=== PATIENT | male | born 1935 | race Caucasian/White ===

== ENCOUNTER → 2016-10-08 | Outpatient (REF) | payer MEDICARE, OTHER ==
[~2016-10-08] MED LIST: /TAMS4CA; /TAMS4CA OR; /WARF2TA; BUFFERED ASPIRIN; LOPR50TA; LORTABS PO; METOPROLOL TARTRATE PO; NASONEX; PRINZIDE; PYRI200T OR; SIMV10TA2 OR; TRAVATAN; WARFARIN PO
== END ==
LOC: M SMT 13:21
PROVIDERS: ATTEND Nurse Practitioner Women's Health
DX: R39.15 Urgency of urination (principal); Z85.51 Personal history of malignant neoplasm of bladder

== ENCOUNTER → 2016-10-15 | Outpatient (REF) | payer MEDICARE, OTHER | LOC: M SMT 13:10 | PROVIDERS: ATTEND Nurse Practitioner Women's Health | DX: N39.0 Urinary tract infection, site not specified (principal) ==

== ENCOUNTER → 2017-11-23 | Outpatient (REF) | payer MEDICARE, OTHER | LOC: M LAB REF 17:16 | DX: L03.116 Cellulitis of left lower limb (principal) | CPT/HCPCS: 87186 ==

== ENCOUNTER → 2018-06-21 | Outpatient (REF) | payer MEDICARE, OTHER | LOC: M LAB REF 13:06 | PROVIDERS: ATTEND Podiatrist Foot & Ankle Surgery | DX: L03.116 Cellulitis of left lower limb (principal); Z79.01 Long term (current) use of anticoagulants ==

== ENCOUNTER → 2020-02-10 | Outpatient (REF) | payer MEDICARE, OTHER ==
[~2020-02-10] MED LIST changes: -/TAMS4CA; -/TAMS4CA OR; -/WARF2TA; +COUM1TAB16; +FLOM0.4C39; +FLOM0.4C39 OR
== END ==
LOC: M LAB REF 12:34
PROVIDERS: ATTEND Podiatrist Foot & Ankle Surgery
DX: L03.032 Cellulitis of left toe (principal)

== ENCOUNTER → 2020-07-23 | Outpatient (REF) | payer MEDICARE, OTHER | LOC: M LAB REF 11:19 | PROVIDERS: ATTEND Podiatrist Foot & Ankle Surgery | DX: L03.116 Cellulitis of left lower limb (principal) ==

== ENCOUNTER → 2020-09-17 | Outpatient (REF) | payer MEDICARE, OTHER ==
[~2020-09-17] MED LIST changes: +DOCU100C16; +FLUTISP; +JANT5TAB; +METO1TAB87; +SIMV10TA21; +TAMS1CAP17
[2020-09-17 12:36] LABS: APPEARANCE, URINE CLEAR (CLEAR); BACTERIA, URINE AUTO NEGATIVE (NEGATIVE); BILIRUBIN, URINE AUTO NEGATIVE (NEGATIVE); BLOOD, URINE BLOOD 1+ (NEGATIVE); COLOR, URINE STRAW (YELLOW); GLUCOSE, URINE (UA) AUTO NEGATIVE (NEGATIVE); KETONE, URINE AUTO NEGATIVE (NEGATIVE); LEUKOCYTE ESTERASE, URINE AUTO NEGATIVE (NEGATIVE); NITRITE, URINE AUTO NEGATIVE (NEGATIVE); PROTEIN, URINE AUTO NEGATIVE (NEGATIVE); RBC, URINE AUTO 1 /HPF (0-3); SPECIFIC GRAVITY URINE AUTO 1.004 (1.002-1.035); SQUAMOUS EPITHELIAL CELL UR AU 0 /HPF (0-6); UROBILINOGEN, URINE AUTO 0.2 mg/dL (0.0-2.0); WBC, URINE AUTO 0 /HPF (0-3)
== END ==
LOC: M LAB REF 12:18
PROVIDERS: ATTEND Family Medicine
DX: Z08 Encounter for follow-up examination after completed treatment for malignant neoplasm (principal); Z85.51 Personal history of malignant neoplasm of bladder; Z79.899 Other long term (current) drug therapy

== ENCOUNTER → 2020-09-22 | Outpatient (CLI) | payer MEDICARE, OTHER | LOC: M LABSMTC 09:49 | PROVIDERS: ATTEND Anesthesiology | DX: Z01.818 Encounter for other preprocedural examination (principal); Z11.52 Encounter for screening for COVID-19 ==

== ENCOUNTER 2020-09-27 07:15 | Day surgery (SDC) | payer MEDICARE, OTHER ==
[~2020-09-27] VITALS: Ht 180.3 cm; Wt 77.6 kg
[~2020-09-27 07:15] MED LIST changes: +NS 1,000 ML IV ONE
[2020-09-27] MEDS ORDERED: propofoL 200 MG/20 ML VIAL As Ordered ONE (09:32)
[2020-09-27] MEDS ORDERED: LIDOCAINE 2% 100MG/5ML SDV (FOR ANES.) As Ordered ONE (09:32)
--- NOTE | 2020-09-27 09:33 | ROOR ---
Patient Name: Rob Mg Procedure Date: 09/27/2020 9:02 AM Date of : 1935 Age: 84 Room: [facility]AC, [facility]IN [facility] Gender: Male Note Status: Finalized Procedure: Colonoscopy Indications: Screening for colorectal malignant neoplasm Providers: Chele Cesar Jr, MD Referring MD: Carlos Alberto Carter MD Requesting Provider: Medicines: Propofol per Anesthesia Complications: No immediate complications. Procedure: Pre-Anesthesia Assessment: - Prior to the procedure, a History and Physical was performed, and patient medications and allergies were reviewed. The patient is competent. The risks and benefits of the procedure and the sedation options and risks were discussed with the patient. All questions were answered and informed consent was obtained. Patient identification and proposed procedure were verified by the physician and the nurse in the pre-procedure area and in the procedure room. Mental Status Examination: alert and oriented. Airway Examination: normal oropharyngeal airway and neck mobility. Respiratory Examination: clear to auscultation. CV Examination: normal. ASA Grade Assessment: II - A patient with mild systemic disease. After reviewing the risks and benefits, the patient was deemed in satisfactory condition to undergo the procedure. The anesthesia plan was to use moderate sedation / analgesia (conscious sedation). Immediately prior to administration of medications, the patient was re-assessed for adequacy to receive sedatives. The heart rate, respiratory rate, oxygen saturations, blood pressure, adequacy of pulmonary ventilation, and response to care were monitored throughout the procedure. The physical status of the patient was re-assessed after the procedure. The Colonoscope was introduced through the anus and advanced to the cecum, identified by appendiceal orifice and ileocecal valve. The colonoscopy was performed without difficulty. The patient tolerated the procedure well. The quality of the bowel preparation was adequate. Findings: The recto-sigmoid colon, cecum, appendiceal orifice and ileocecal valve appeared normal. Multiple small and large-mouthed diverticula were found in the descending colon, transverse colon and ascending colon. Many small and large-mouthed diverticula were found in the sigmoid colon. Three sessile polyps were found in the ascending colon. The polyps were medium in size. These polyps were removed with a hot snare. Resection was complete, but the polyp tissue was only partially retrieved. To close a defect after polypectomy, one hemostatic clip was successfully placed. There was no bleeding at the end of the procedure. Two semi-sessile polyps were found in the rectum and sigmoid colon. The polyps were small in size. These polyps were removed with a hot snare. Resection was complete, but the polyp tissue was only partially retrieved. Impression: - The recto-sigmoid colon, cecum, appendiceal orifice and ileocecal valve are normal. - Diverticulosis in the descending colon, in the transverse colon and in the ascending colon. - Diverticulosis in the sigmoid colon. - Three medium polyps in the ascending colon, removed with a hot snare. Complete resection. Partial retrieval. Clip was placed. - Two small polyps in the rectum and in the sigmoid colon, removed with a hot snare. Complete resection. Partial retrieval. Recommendation: - Discharge patient to home (ambulatory). - Repeat colonoscopy in 5 years for surveillance. Procedure Code(s): --- Professional --- 38431, Colonoscopy, flexible; with removal of tumor(s), polyp(s), or other lesion(s) by snare technique Diagnosis Code(s): --- Professional --- Z12.11, Encounter for screening for malignant neoplasm of colon K62.1, Rectal polyp K63.5, Polyp of colon K57.30, Diverticulosis of large intestine without perforation or abscess without bleeding CPT copyright 2019 [employer]. All rights reserved. The codes documented in this report are preliminary and upon superintendent mechanical review may be revised to meet current compliance requirements. Chele Cesar MD Chele Cesar Jr, MD 09/27/2020 9:32:49 AM Electronically signed by Chele Cesar Jr, MD Number of Addenda: 0 Note Initiated On: 09/27/2020 9:02 AM Estimated Blood Loss: Estimated blood loss: none.
[2020-09-27 10:01] VITALS: BP 122/69
== END 2020-09-27 10:16 | disposition home or self-care (01) ==
LOC: M OPP 07:15
PROVIDERS: ATTEND Surgery
DX: Z12.11 Encounter for screening for malignant neoplasm of colon (principal); K62.1 Rectal polyp; D12.6 Benign neoplasm of colon, unspecified; K57.30 Diverticulosis of large intestine without perforation or abscess without bleeding; I48.91 Unspecified atrial fibrillation; Z79.899 Other long term (current) drug therapy

== ENCOUNTER 2020-10-02 16:14 | Inpatient (IN) | payer MEDICARE, OTHER ==
[~2020-10-02] VITALS: Ht 182.9 cm; Wt 78.2 kg
[~2020-10-02 16:14] MED LIST changes: -NS 1,000 ML IV ONE
[2020-10-02] MEDS ORDERED: ELIQ5TAB (17:09)
--- NOTE | 2020-10-02 17:50 | REPVR ---
PROCEDURE INFORMATION: Exam: CT Head Without Contrast Exam date and time: 10/02/2020 5:24 PM Age: 84 years old Clinical indication: Pain; Headache; Additional info: Altered mental status TECHNIQUE: Imaging protocol: Computed tomography of the head without contrast. Radiation optimization: All CT scans at this facility use at least one of these dose optimization techniques: automated exposure control; mA and/or kV adjustment per patient size (includes targeted exams where dose is matched to clinical indication); or iterative reconstruction. COMPARISON: No relevant prior studies available. FINDINGS: Brain: There is no acute intracranial hemorrhage, cerebral edema, or midline shift. Chronic microvascular ischemic changes are seen in the periventricular white matter. Age-related cerebral and cerebellar volume loss is present. Cerebral ventricles: No hydrocephalus. Paranasal sinuses: There is no acute sinusitis. Mastoid air cells: The mastoid air cells are clear. Orbital cavity: The included orbital structures are unremarkable. Vasculature: Atherosclerotic calcifications are seen involving the cavernous carotid arteries. Bones/joints: No acute fracture. Soft tissues: Unremarkable. IMPRESSION: 1. No acute intracranial abnormality. 2. Atrophy and chronic deep white matter ischemic changes. Electronically signed by: Dangelo Christianson On 10/02/2020 17:50:29 PM
[2020-10-02 18:09] LABS: EOS % 0.2 % (0.0-3.0); HEMATOCRIT 21.2 % (42.0-52.0); HEMOGLOBIN 7.3 g/dl (13.5-17.5); LYMPH # 0.7 10^3/uL (1.5-5.0); LYMPH % 7.2 % (24.0-44.0); MEAN CORPUSCULAR HGB CONC 34.4 g/dl (32.0-36.5); MONO # 0.6 10^3/uL (0.0-0.8); MONO % 6.1 % (2.0-8.0); NEUTROPHILS # 7.8 10^3/uL (1.5-8.5); NEUTROPHILS % 85.8 % (36.0-66.0); PLATELET COUNT, AUTOMATED 172 10^3/uL (150-450); RED BLOOD COUNT 2.28 10^6/uL (4.30-6.10); WHITE BLOOD COUNT 9.1 10^3/uL (4.0-10.0)
[2020-10-02 18:23] LABS: INR 1.6; PROTHROMBIN TIME 19.4 SECONDS (12.5-14.3)
[2020-10-02 18:24] LABS: PARTIAL THROMBOPLASTIN TIME 31.7 SECONDS (24.2-38.5)
--- NOTE | 2020-10-02 18:30 | REP ---
INDICATION: AMS; recent endoscopy; assess for free air COMPARISON: None. TECHNIQUE: Supine and cross-table lateral views of the abdomen and pelvis. FINDINGS: Bowel gas pattern is nonspecific. No free air to suggest perforation. Skeletal structures demonstrate degenerative changes. No obvious organomegaly. IMPRESSION: No evidence for bowel perforation. <Electronically signed by Suraj Jean > 10/02/20 [id number]
[2020-10-02 18:47] LABS: ALBUMIN 2.7 GM/DL (3.2-5.2); ALT/SGPT 23 U/L (12-78); BILIRUBIN,DIRECT 0.3 MG/DL (0.0-0.2); BILIRUBIN,TOTAL 0.9 MG/DL (0.2-1.0); BLOOD UREA NITROGEN 18 MG/DL (7-18); CALCIUM LEVEL 7.2 MG/DL (8.8-10.2); CARBON DIOXIDE LEVEL 23 MEQ/L (21-32); CHLORIDE LEVEL 93 MEQ/L (98-107); CK-MB VALUE MASS 25.6 NG/ML (<3.6); CPK CREATINE PHOSPHOKINASE 647 U/L (39-308); CREATININE FOR GFR 0.58 MG/DL (0.70-1.30); GLOMERULAR FILTRATION RATE > 60.0 (>35); GLUCOSE, FASTING 137 MG/DL (70-100); MB/CK RELATIVE INDEX 3.96 (< OR =4); POTASSIUM SERUM 3.9 MEQ/L (3.5-5.1); SODIUM LEVEL 125 MEQ/L (136-145); TOTAL PROTEIN 5.2 GM/DL (6.4-8.2); TROPONIN I 0.76 NG/ML (< 0.10)
[2020-10-02] MEDS ORDERED: PANTOPRAZOLE 40MG VIAL (C9113 PER 1) IV ONE (19:25)
[2020-10-02] MEDS ORDERED: NS 500 ML IV ONE (20:00)
[2020-10-02 20:21] VITALS: BP 98/60
[2020-10-02 20:37] VITALS: BP 107/64
[2020-10-02] MEDS: SIMVASTATIN 10 MG TAB PO SCH (21:00)
[2020-10-02] MEDS: TAMSULOSIN 0.4 MG CAP PO SCH (21:00)
[2020-10-02] MEDS: DOCUSATE SODIUM 100MG CAPSULE PO SCH (21:00)
[2020-10-02] MEDS ORDERED: PANTOPRAZOLE 40MG VIAL (C9113 PER 1) IV SCH (21:00)
[2020-10-02] MEDS ORDERED: ELIQ5TAB PO (21:20)
[2020-10-02] MEDS ORDERED: VITMTA PO (21:20)
[2020-10-02] MEDS ORDERED: MIRA1POW3 PO (21:20)
[2020-10-02] MEDS ORDERED: FLOM0.4C39 PO (21:20)
[2020-10-02] MEDS ORDERED: XALA0.007 OU (21:20)
[2020-10-02] MEDS ORDERED: MAALOX 30 ML SUSP *UDC PO PRN (21:20)
[2020-10-02] MEDS ORDERED: DOCU100C16 PO (21:20)
[2020-10-02] MEDS ORDERED: MOM 30ML SUSPENSION UDC PO PRN (21:20)
[2020-10-02] MEDS ORDERED: METO25TA4 PO (21:20)
[2020-10-02] MEDS ORDERED: FLUT15.820 (21:20)
[2020-10-02] MEDS ORDERED: SIMV10TA21 PO (21:20)
[2020-10-02] MEDS ORDERED: CALTTAB6 PO (21:20)
[2020-10-02] MEDS ORDERED: ACETAMINOPHEN TAB 650MG DOSE (2X325MG) PO PRN (21:20)
[2020-10-02 21:28] VITALS: BP 102/59
[2020-10-02 21:40] LABS: RSV AMPLIFICATION NEGATIVE (NEGATIVE)
[2020-10-02 21:55] LABS: FREE T4 1.12 NG/DL (0.76-1.46); THYROID STIMULATING HORMONE 1.33 uIU/ML (0.358-3.740)
[2020-10-02 21:55] LABS: CK-MB VALUE MASS 43.8 NG/ML (<3.6); MB/CK RELATIVE INDEX 4.19 (< OR =4); TROPONIN I 8.02 NG/ML (< 0.10)
[2020-10-02 22:45] VITALS: BP 97/61
--- NOTE | 2020-10-02 22:56 | HPEPDOC ---
[facility] Medical History & Physical Date of Admission Oct 02, 2020 Date of Service: Oct 02, 2020 History and Physical CHIEF COMPLAINT: Bleeding per rectum HISTORY OF PRESENT ILLNESS: This is an 84-year-old male history of atrial fibrillation on eliquis who was brought in a son because of 3 day history of bright red bleeding per rectum. Patient had a colonoscopy with Dr. Cesar on during which polyps were removed and patient was started on eliquis on Thursday for his atrial fibrillation. His son noticed on Thursday he had an episode of bright red blood per rectum and discontinued with every bowel movement until today Thursday. During this time he noticed patient became progressively more confused at home and appeared to be weaker. Son tells me that the patient didnt have any complaints and appeared comfortable. EMS found the patient to be hypotensive approximately 80s/50s and he was given IV fluids and he responded well systolic blood pressure currently ~110. His son provided consent in the emergency dep artment for blood products and patient was ordered 2 units of blood which were transfusing at the time that I saw him in the emergency department. Patient was pleasantly confused at bedside he did not know where he was, he was able to tell me that his son was at the bedside but didnt know his name. His son Bartolome provided all of the history. Troponin was noted to be elevated initially to 0.76 and then up to 8. TRENTON Pantoja spoke with Dr. Palomares who recommended admission and to hold beta audrey, hydrate and give blood products despite the elevated troponin. I also discussed the case with Dr Palomares. PAST MEDICAL/SURGICAL HISTORY: History from Bartolome his son; Atrial fibrillation Glaucoma BPH Hyperlipidemia Hypertension Inguinal hernia surgery SOCIAL HISTORY: According to his son patient does not smoke does not consume alcohol and does not use illicit drugs. 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 FAMILY HISTORY: Obtained from his son who tells me he has a family history of bladder cancer. Son didnt know of any other family history. History Bartolome lives with him at his house. ALLERGIES: Please see below. REVIEW OF SYSTEMS: Unable to obtain most of review of systems from the patient given his confusion however he was able to answer some basic questions Im uncertain of the reliability of the answers. He denies having shortness of breath denies having chest pain denies being in any pain. HOME MEDICATIONS: Please see below. PHYSICAL EXAMINATION: Constitutional: Awake, in no apparent distress, pleasantly confused ENT: Sclera are clear. Mucosa is dry. Respiratory: Lungs CTA bilaterally. No respiratory distress. No use of accessory muscles. Cardiovascular: Irregularly irregular heart rate. No JVD noted Gastrointestinal: Abdomen is soft, non distended, non tender, BS present. Musculoskeletal: No lower extremity edema. Neurologic: Difficult to assess accurately with his mental state but he appears to move all 4 extremities freely and there is no obvious focal neurologic deficits Mental Status: A&O x1, only able to recognize his son is at bedside. Not oriented to place and time. Skin: No visible rashes LABORATORY DATA: See below. IMAGING: See chart MICROBIOLOGY: Please see below. ASSESSMENT/PLAN 84-year-old male history of atrial fibrillation on eliquis recently had a colonoscopy and started on eliquis who started having lower bright red blood per rectum who is being admitted for management of symptomatic anemia and confusion in the setting of GI bleeding. Found to have NSTEMI but not cadidate for heparin drip or cardiac intervention at this time per Dr Palomares. Will be admitted to ICU. # GI bleed: Admit to ICU. Bright red blood per rectum. HH initially 7.3. Trend HH. Transfuse 2x pRBC and PRN if hgb<8. PPI IV. Discussed with Dr Hughes, no urgent need for scope if bleeding stops and HH is stable after blood transfusion, its likely from the polyp that were recently removed and being restarted on eliquis. Later, once in the ICU patient also developed coffee ground emesis; NG tube to suction returned 400cc of coffee ground emesis and octreotide drip started. Consulted Dr Hughes formally and appreciate his recommendations. I discussed the case with Dr Cesar as he did his c-scope last week, he kindly agreed to be consulted, he recommended trying to reach out to IR in the morning to see if they would be available/willing to perform IR directed embolization given his elevated trops. # NSTEMI: initially 0.76 ->8.0. Trend troponin and EKGs. Hypotension and severe anemia can definitely be contributing. I discussed his case given the elevated troponin with Dr Palomares laboratory machinist recommended admission as inpatient vs transfer out to [facility] as he is not a candidate for PCI/stenting while having a GI bleed. Cannot get heparin drip while having active GI bleed and tells me it will take a few days to settle and deal with the GI bleed before any potential cardiac intervention is considered. EKG shows some T wave invasions. I involved his son Bartolome in the decision making process and discussed the possible advantages of going to a higher level of care vs staying here vs the risks and he preferred that his dad stay at [facility]. I consulted Dr Palomares and really appreciate his recommendations. # increased confusion: in the setting of hypotension, anemia, and NSTEMI. IVFs, blood transfusion and monitor mental state progression. Ammonia level ok. # A fib: per Dr Palomares will hold BB. Also hold eliquis in setting of GI bleed. # Elevated CK: likely from dehydration. IVFs, rRBC transfusions. Trend CK, initially 647. # Hypertension: Initially hypotensive, hold home meds. IVFs. Monitor and titrate # HLD: continue home statin # BPH: continue home med # DVT prophylaxis: SCDs/TEDs only CODE STATUS: discussed with son Bartolome who indicated his dad would like to be full code. A Youse[facility] Hospitalist Vital Signs Vital Signs Date Time Temp Pulse Resp B/P (MAP) Pulse Ox O2 Delivery O2 Flow Rate FiO2 10/02/20 22:44 63 18 97 Room Air 10/02/20 22:30 97/62 (74) 10/02/20 21:28 98.1 Laboratory Data Labs 24H Laboratory Tests 2 10/02/20 17:56: Prothrombin Time 19.4H, Prothromb Time International Ratio 1.60, Activated Partial Thromboplast Time 31.7 10/02/20 17:57: Immature Granulocyte % (Auto) 0.7, Neutrophils (%) (Auto) 85.8H, Lymphocytes (%) (Auto) 7.2L, Monocytes (%) (Auto) 6.1, Eosinophils (%) (Auto) 0.2, Basophils (%) (Auto) 0.0, Neutrophils # (Auto) 7.8, Lymphocytes # (Auto) 0.7L, Monocytes # (Auto) 0.6, Eosinophils # (Auto) 0.0, Basophils # (Auto) 0.0, Nucleated Red Blood Cells % (auto) 0.0, Anion Gap 9, Glomerular Filtration Rate > 60.0, Calcium Level 7.2L, Total Bilirubin 0.9, Direct Bilirubin 0.3H, Aspartate Amino Transf (AST/SGOT) 34, Alanine Aminotransferase (ALT/SGPT) 23, Alkaline Phosphatase 48, Total Creatine Kinase 647H, Creatine Kinase MB 25.6H, Creatine Kinase MB Relative Index 3.96, Troponin I 0.76H, Total Protein 5.2L, Albumin 2.7L, Albumin/Globulin Ratio 1.1, Thyroid Stimulating Hormone (TSH) 1.330 10/02/20 20:45: Thyroid Stimulating Hormone (TSH) 1.330, Osmolality 255L, Ammonia 26, Free Thyroxine 1.12, Coronavirus (COVID-19)(PCR) NEGATIVE, Influenza Type A (RT-PCR) NEGATIVE, Influenza Type B (RT-PCR) NEGATIVE, Respiratory Syncytial Virus (PCR) NEGATIVE 10/02/20 20:59: Total Creatine Kinase 1046H, Creatine Kinase MB 43.8H, Creatine Kinase MB Relative Index 4.19H, Troponin I 8.02#*H CBC/BMP Laboratory Tests 10/02/20 17:57 Home Medications Scheduled Apixaban (Eliquis) 5 Mg Tablet, 5 MG PO BID Lencho/D3/Mag11/Zinc/Outpatient Facility Physical Therapist/Harman/Bor (Caltrate 600+D Plus Tablet) 1 Each Tablet, 1 TAB PO DAILY Docusate Sodium (Docusate Sodium) 100 Mg Capsule, 100 MG PO BID Fluticasone Propionate (Fluticasone Propionate) 15.8 Ml [place].susp, 2 SPRAYS NA DAILY Latanoprost (Xalatan) 0.005% 2.5ML Drops, 1 DROP OU QHS Metoprolol Tartrate (Metoprolol Tartrate) 25 Mg Tablet, 25 MG PO BID Multivitamins (Thera M Plus Tablet) 1 Each Tablet, 1 TAB PO DAILY Polyethylene Glycol 3350 (Miralax) 17 Gm Powd.pack, 17 GM PO DAILY Simvastatin (Simvastatin) 10 Mg Tablet, 10 MG PO QHS Tamsulosin HCl (Flomax) 0.4 Mg Capsule, 0.8 MG PO QHS Allergies Coded Allergies: No Known Allergies (Verified , 09/18/20) A-FIB/CHADSVASC A-FIB History Current/History of A-Fib/PAF?: Yes Current PO Anticoag Therapy: No BRYAN RICHARDSON MD Oct 02, 2020 22:56
[2020-10-02] MEDS ORDERED: NS 1,000 ML IV SCH (23:30)
[2020-10-02 23:35] VITALS: BP 107/64
[2020-10-03] VITALS (35 sets, daily range): BP systolic 97–132; BP diastolic 52–69
[2020-10-03 01:16] LABS: CREATININE,RANDOM URINE 69.9 MG/DL
[2020-10-03] MEDS: OCTREOTIDE ACETATE 1,200 MCG in NS 238.8 ML IV SCH ×2 (02:40→03:24)
[2020-10-03] MEDS ORDERED: NS 1,000 ML IV SCH (03:20)
[2020-10-03] MEDS: LATANOPROST 0.005% OPHTH SOLN 2.5 ML OU SCH ×2 (03:23→20:18)
[2020-10-03 03:56] LABS: ABG HCO3 19.5 MEQ/L (22.0-26.0); ABG O2 SATURATION 96.5 % (95.0-99.0); ABG PARTIAL PRESSURE CO2 30.4 mmHg (35.0-45.0); ABG STANDARD HCO3 21.1 MEQ/L (22.0-26.0); ABG TOTAL CO2 20.4 MEQ/L (23.0-31.0); ABG pH (ARTERIAL) 7.425 UNITS (7.350-7.450)
[2020-10-03 04:16] LABS: HEMATOCRIT 29.9 % (42.0-52.0); HEMOGLOBIN 10.2 g/dl (13.5-17.5); MEAN CORPUSCULAR HEMOGLOBIN 31.5 pg (27.0-33.0); MEAN CORPUSCULAR HGB CONC 34.1 g/dl (32.0-36.5); MEAN CORPUSCULAR VOLUME 92.3 fl (80.0-96.0); PLATELET COUNT, AUTOMATED 192 10^3/uL (150-450); RED BLOOD COUNT 3.24 10^6/uL (4.30-6.10); WHITE BLOOD COUNT 12.2 10^3/uL (4.0-10.0)
[2020-10-03 04:24] LABS: INR 1.44; PROTHROMBIN TIME 17.9 SECONDS (12.5-14.3)
[2020-10-03 04:49] LABS: ALBUMIN 2.9 GM/DL (3.2-5.2); ALT/SGPT 34 U/L (12-78); BILIRUBIN,TOTAL 1.7 MG/DL (0.2-1.0); BLOOD UREA NITROGEN 15 MG/DL (7-18); BLOOD UREA NITROGEN 16 MG/DL (7-18); CALCIUM LEVEL 6.8 MG/DL (8.8-10.2); CALCIUM LEVEL 7.3 MG/DL (8.8-10.2); CARBON DIOXIDE LEVEL 23 MEQ/L (21-32); CARBON DIOXIDE LEVEL 26 MEQ/L (21-32); CHLORIDE LEVEL 95 MEQ/L (98-107); CHLORIDE LEVEL 96 MEQ/L (98-107); CREATININE FOR GFR 0.43 MG/DL (0.70-1.30); CREATININE FOR GFR 0.47 MG/DL (0.70-1.30); GLOMERULAR FILTRATION RATE > 60.0 (>35); GLUCOSE, FASTING 106 MG/DL (70-100); GLUCOSE, FASTING 112 MG/DL (70-100); MAGNESIUM LEVEL 1.3 MG/DL (1.8-2.4); POTASSIUM SERUM 3.9 MEQ/L (3.5-5.1); SODIUM LEVEL 126 MEQ/L (136-145); SODIUM LEVEL 127 MEQ/L (136-145); TOTAL PROTEIN 5.7 GM/DL (6.4-8.2)
--- NOTE | 2020-10-03 05:51 | REPVR ---
PROCEDURE INFORMATION: Exam: XR Chest Exam date and time: 10/03/2020 3:53 AM Age: 84 years old Clinical indication: Other: Hypoxia TECHNIQUE: Imaging protocol: XR of the chest. Views: 1 view. COMPARISON: CR Abdomen,Flat Upright,PA CHEST 10/02/2020 5:42 PM FINDINGS: Tubes, catheters and devices: A new nasogastric tube is present, extending below the diaphragm. The tip is not included in the field of view. The side port appears to be at or just beyond the level of the GE junction. Lungs: There is new central and basilar predominant airspace disease. There is new mild interstitial thickening and prominence of the pulmonary vessels. Pleural spaces: There are probable small bilateral pleural effusions. Heart/Mediastinum: The heart is normal in size. Vasculature: Aortic knob calcifications are noted. Bones/joints: Unremarkable. IMPRESSION: 1. Interval placement of a nasogastric tube extending to the stomach. 2. New central and basilar predominant airspace disease, interstitial thickening, and prominence of the pulmonary vessels likely due to pulmonary edema. Electronically signed by: Vanesa Grullon On 10/03/2020 05:50:21 AM
[2020-10-03] MEDS: MAG SULF 1GM/100ML (MAG RUN) 1 GM in IV 1 EA IV SCH ×3 (06:13→09:49)
[2020-10-03] MEDS ORDERED: propofoL 200 MG/20 ML VIAL As Ordered ONE (07:12)
[2020-10-03] MEDS ORDERED: fentaNYL 100 MCG/2 ML INJECTION (J3010) As Ordered ONE (07:12)
[2020-10-03] MEDS ORDERED: LIDOCAINE 2% 100MG/5ML SDV (FOR ANES.) As Ordered ONE (07:12)
[2020-10-03] MEDS ORDERED: SUCCINYLCHOLINE 100 MG/5 ML SYRINGE (J0330) As Ordered ONE (07:14)
[2020-10-03] MEDS ORDERED: ROCURONIUM BROMIDE 50 MG/5 ML VIAL As Ordered ONE (07:14)
[2020-10-03] MEDS ORDERED: MIDAZOLAM INJ 2MG/2ML VIAL (J2250 PER 1MG) As Ordered ONE (07:18)
--- NOTE | 2020-10-03 08:44 | ROOR ---
Patient Name: Rob Mg Procedure Date: 10/03/2020 8:06 AM Date of : 1935 Age: 84 Room: Main OR Gender: Male Note Status: Finalized Procedure: Upper GI endoscopy Indications: Acute post hemorrhagic anemia, Coffee-ground emesis, Hematemesis, Suspected upper gastrointestinal bleeding Providers: Jax Hughes MD Referring MD: 2. Inpatient 2. Inpatient Requesting Provider: Medicines: See the Anesthesia note for documentation of the administered medications Complications: No immediate complications. Procedure: Pre-Anesthesia Assessment: - The heart rate, respiratory rate, oxygen saturations, blood pressure, adequacy of pulmonary ventilation, and response to care were monitored throughout the procedure. The Endoscope was introduced through the mouth, and advanced to the second part of duodenum. The upper GI endoscopy was accomplished without difficulty. The patient tolerated the procedure well. Findings: Mildly severe esophagitis with no bleeding was found in the lower third of the esophagus. One benign-appearing, intrinsic mild stenosis was found at the gastroesophageal junction. The stenosis was traversed. Bilious fluid was found in the gastric body. Nasogastric tube trauma characterized by suction wall was evident in the gastric body. The exam of the stomach was otherwise normal. A non-bleeding diverticulum was found in the second portion of the duodenum. The examined duodenum was normal. Impression: - Mildly severe esophagitis with mild benign-appearing esophageal stenosis. - Normal stomach with NG suction wall. Bilious fluid. - Normal examined duodenum with duodenal diverticulum - No specimens collected. (-No significant bleeding source seen on this exam. Suspect may have had some minor bleeding from esophagitis as source for coffee ground/blood in NGT). Recommendation: - [facility] to [facility] for [facility]. Procedure Code(s): --- Professional --- 42435, Esophagogastroduodenoscopy, flexible, transoral; diagnostic, including collection of specimen(s) by brushing or washing, when performed (separate procedure) Diagnosis Code(s): --- Professional --- K92.0, Hematemesis K57.10, Diverticulosis of small intestine without perforation or abscess without bleeding D62, Acute posthemorrhagic anemia K91.89, Other postprocedural complications and disorders of digestive system K22.2, Esophageal obstruction K20.9, Esophagitis, unspecified CPT copyright 2019 [employer]. All rights reserved. The codes documented in this report are preliminary and upon water fitness instructor review may be revised to meet current compliance requirements. Jax Hughes MD Jax Hughes MD 10/03/2020 8:44:00 AM Electronically signed by Jax Hughes MD Number of Addenda: 0 Note Initiated On: 10/03/2020 8:06 AM Estimated Blood Loss: Estimated blood loss: none.
[2020-10-03] MEDS ORDERED: ONDANSETRON 4MG/2ML VIAL IV PRN (08:45)
[2020-10-03] MEDS ORDERED: LR 1,000 ML IV SCH (08:45)
[2020-10-03] MEDS: DOCUSATE SODIUM 100MG CAPSULE PO SCH ×2 (09:00→20:17)
--- NOTE | 2020-10-03 09:00 | CR ---
CONSULTATION DATE: 10/03/2020 REFERRING PHYSICIAN: BRYAN RICHARDSON MD REASON FOR CONSULTATION: Myocardial infarction. HISTORY OF PRESENT ILLNESS: Mr. Mg is previously unknown to me. He is an 84-year-old man who presented to the Emergency Room yesterday. He had a colonoscopy with resection of multiple polyps last week, apparently the patient procedure was performed on . On Thursday, he was instructed to restart Eliquis and the following day he started to have blood per rectum. Unfortunately, he continued to take all his medications but then yesterday his son who lives with the patient noted that he was very confused and disoriented and eventually decided to bring him to the Emergency Room. On the initial evaluation, he had obvious blood in his stools. He was not overly hypotensive and neither was he excessively tachycardic. His hemoglobin was a little bit over 7. The last dose of Eliquis was yesterday morning. Also, his troponin was mildly elevated at 0.7 but he did not complain about any chest discomfort even though his answers may not be accurate due to underlying confusion. A 12 lead ECG was interpreted as revealing no acute ST elevations or depressions. Dr. Flowers called me from the Emergency Room and informed me about these findings and inquired about transfer. I did not feel that transferring the patient would provide any obvious advantage as in the setting of acute ongoing bleeding he would not be a candidate for any form of cardiac intervention. Consequently, he was kept in our hospital. Unfortunately, his troponin continued to rise, the second was over 8 and the third one this morning is almost 30. At no point did he complain of chest discomfort. He remained confused and at some point became very hypoxic after he got blood transfusion and IV fluids, probably triggering congestive heart failure. In the middle of the night, he started having emesis, an NG-tube was placed and evacuated a large amount of coffee-ground material from his stomach indicative of upper GI bleeding. This morning I saw the patient in the Recovery Room. He was getting ready to have emergency EGD due to ongoing upper GI hemorrhage. At the bedside, he was pleasantly confused, did not seem to be in any distress. He denied any chest discomfort but due to his mental status I am not convinced the answer can be considered definitely accurate. Vital signs: Blood pressure was 105/70, heart rate in the 80s, sinus rhythm. He was saturating in the mid 90s on supplemental oxygen via nasal cannula. PAST MEDICAL HISTORY: 1. Paroxysmal atrial fibrillation. 2. Glaucoma. 3. BPH. 4. Dyslipidemia. 5. Hypertension. 6. History of inguinal hernia surgery. SOCIAL HISTORY: Based on admission note, he does not smoke and he does not drink alcohol. He has been retired for over 30 years. FAMILY HISTORY: Limited. I was not able to obtain anything from the patient. OUTPATIENT MEDICATIONS: 1. Eliquis 5 mg twice a day, the last dose was administered yesterday morning. 2. Multivitamin. 3. Colace 100 b.i.d. 4. Fluticasone nasal spray. 5. Xalatan eyedrops. 6. Metoprolol 25 mg twice a day. 7. Miralax as needed. 8. Simvastatin 10 mg at bedtime. 9. Flomax 0.8 mg at bedtime. ALLERGIES: No known allergies. REVIEW OF SYSTEMS: I am unable to obtain from the patient due to his confusion. Based on the admission note, there was no prior history of cardiovascular disease other than paroxysmal atrial fibrillation. He apparently was quite active until quite recently. At no point did he complain about chest discomfort before presentation to the Emergency Room. PHYSICAL EXAMINATION: VITAL SIGNS: The last set of vital signs; blood pressure 97/52, heart rate in the 60s and 70s. He has been afebrile. Saturation, the most recent one was 98% on room air. His weight was recorded at 80 kg. GENERAL: He is alert but confused, not oriented to person, place or time. NECK: His JVP is not high, if anything it seems to be rather low. LUNGS: Surprisingly clear to auscultation. I do not appreciate any crackles, rhonchi or wheezing. Good air movement. HEART: Regular rhythm. I do not appreciate distinct rub, murmur or gallop. ABDOMEN: Soft. No obvious guarding or tenderness. EXTREMITIES: 1+ edema. There are chronic stasis dermatitis changes on his shins. Peripheral pulses are palpable. NEUROLOGIC: There is no obvious focal weakness but he is certainly confused. LABORATORY DATA: As of this morning, basic metabolic panel: Sodium is 126, potassium is 4.0, BUN 15, creatinine 0.5, glucose is 112, magnesium is 1.3. He had three sets of troponin; the initial was 0.76, the second one at 9 p.m. yesterday was 8 and the third one at 4 o'clock this morning is 28. CBC as of 4 o'clock this morning; WBC count 12, hemoglobin 10.2 from admission 7.3, hematocrit 29.9 and platelet count 192,000. INR as of this morning was 1.44, yesterday evening was 1.6. He has a series of EKGs on file, unfortunately, we do not have any old ones but they all reveal sinus rhythm with left axis deviation, QS complexes with T-wave inversions in leads V1 to V3 suggestive of anteroseptal infarction. I do not see any obvious evolution on the EKG. There is no distinct ST segment elevation or depression. Chest x-ray demonstrated congestive heart failure and a proper position of NG-tube. He had a CT scan of the head due to his underlying confusion which revealed chronic atrophic changes but no acute abnormalities. ASSESSMENT AND PLAN: Mr. Mg is an 84-year-old man who presented with bright-red blood per rectum while restarting Eliquis within 24 hours after a colonoscopy with apparent resection of multiple polyps. Unfortunately, now he seems to have an upper GI bleed with profuse amount of coffee-ground being evacuated from his stomach. To complicate the situation further, he has an acute myocardial infarction with evidence of anterior wall involvement based on EKG. There is no history of chest discomfort and no ST segment elevations though. I was being asked to clear the patient to undergo EGD. I do believe that with ongoing GI hemorrhage we do not have any alternative other than allow the procedure to proceed as we have not been able to stop the bleeding so far. He already received high doses of PPIs and Octreotide. Hopefully, there will be an identifiable source and that could be helped. That certainly will stabilize the situation. The effect of Eliquis that is now approximately 24 hours from his last administration should be ceasing quite rapidly as well. As far as myocardial infarction is concerned, I am afraid we will be left with purely supportive management. Considering active and massive GI bleeding, I do not believe there is any possibility of either percutaneous intervention or administering even antiplatelet agents until we have confidence that the GI bleeding has stopped. At this point, I would continue administration of statins. I think with his soft blood pressure and evidence of congestive heart failure we should be very conservative with the administration of beta blockers. Obviously, diuretics will need to be given as needed depending on his volume status. At this point, he is certainly not volume overloaded. His condition certainly remains guarded at best and there are a lot of scenarios that do not have favorable outcomes but provided the bleeding stops he certainly has a chance to survive this acute episode. We will follow his cardiac enzymes and echocardiogram was ordered which will help us evaluate the size of his myocardial infarction. ZEUS
[2020-10-03] MEDS: PANTOPRAZOLE 40MG VIAL (C9113 PER 1) IV SCH ×2 (09:56→20:18)
[2020-10-03 11:42] LABS: HEMATOCRIT 30.2 % (42.0-52.0); HEMOGLOBIN 10.3 g/dl (13.5-17.5)
--- NOTE | 2020-10-03 12:39 | IPNPDOC ---
Text Note Date of Service The patient was seen on 10/03/20. NOTE Subjective: I saw patient in the ICU after EGD was done in the morning. Patient is lethargic, moves 4 limbs but does not follow commands. Objective: GENERAL APPEARANCE: Lethargic somnolent male HEENT: no scleral icterus, no JVD, EOMI CARDIOVASCULAR: S1S2 LUNGS: Diminished lung sounds bilaterally ABDOMEN: soft & mildly distended MUSCULOSKELETAL: no cyanosis, + 1 nonpitting edema of LE b/l INTEGUMENT: stasis dermatitis of both lower extremities NEUROLOGICAL: Moves 4 limbs, no nuchal rigidity Assessment and plan Patient is 84-year-old male history of atrial fibrillation on eliquis recently had a colonoscopy and started on eliquis who started having lower bright red blo od per rectum who is being admitted for management of symptomatic anemia and confusion in the setting of GI bleeding. Found to have NSTEMI but not candidate for heparin drip or cardiac intervention at this time per Dr Palomares. Will be admitted to ICU. EGD was done on 10/03/20 patient was found to have Mildly severe esophagitis with no bleeding was found in the lower third of the esophagus GI bleed Most likely secondary to Eliquis Patient developed hematemesis and bright red bleeding per rectum Last week patient had colonoscopy with polyps removal by Dr. Cesar EGD was done in the morning patient was found to have Mildly severe esophagitis with no bleeding was found in the lower third of the esophagus, No significant bleeding source seen on this exam. Suspect may have had some minor bleeding from esophagitis as source for coffee ground/blood in NGT H&H every 6 hours Protonix, octreotide IV NStemi EKG showed no ST elevation Troponin elevated up to 28 Patient is not candidate for anticoagulation or cardiac catheterization due to possible ongoing GI bleed Dr. Palomares follows him Beta blockers on hold due to hypotension Echo ordered Continue to monitor troponin Atrial fibrillation Heart rate under control Anticoagulation on hold Acute anemia Secondary to GI bleed Patient received 2 units of blood Hemoglobin 10.3 in the morning Hyperlipidemia Continue sliding BPH Continue home meds Hyponatremia We'll check urine, serum osmolality Urine lites DC fluid VS,Fishbone, I+O VS, Fishbone, I+O Laboratory Tests 10/02/20 17:57 10/03/20 03:57 10/03/20 11:21 Vital Signs Date Time Temp Pulse Resp B/P (MAP) Pulse Ox O2 Delivery O2 Flow Rate FiO2 10/03/20 09:55 71 20 103/58 (73) 91 Room Air 10/03/20 09:30 98.8 10/03/20 08:34 8.0 I&O- Last 24 Hours up to 6 AM 10/03/20 06:00 Intake Total 1805 ml Output Total 1525 ml Balance 280 ml AUDREY KOENIG DO Oct 03, 2020 12:39
[2020-10-03 12:45] LABS: CK-MB VALUE MASS 56.4 NG/ML (<3.6); MB/CK RELATIVE INDEX 4.74 (< OR =4); TROPONIN I 23.2 NG/ML (< 0.10)
[2020-10-03] MEDS ORDERED: MAG SULF 1GM/100ML (MAG RUN) 1 GM in IV 1 EA IV ONE (12:45)
[2020-10-03 15:14] LABS: HEMATOCRIT 30.2 % (42.0-52.0); HEMOGLOBIN 10.4 g/dl (13.5-17.5)
[2020-10-03 15:51] LABS: CK-MB VALUE MASS 49.8 NG/ML (<3.6); MB/CK RELATIVE INDEX 5.51 (< OR =4); TROPONIN I 19.2 NG/ML (< 0.10)
--- NOTE | 2020-10-03 16:58 | CR ---
CONSULTATION DATE: 10/03/2020 CHIEF COMPLAINT: GI bleed, status post colonic polypectomy. BRIEF HISTORY OF PRESENT ILLNESS: The patient is an 84-year-old male who underwent colonoscopy last week. Multiple polyps were seen and were taken off by snare polypectomy. The patient did not have any GI bleeding for initial few days, however, started Eliquis this weekend and noticed some change in his bowel movements. Reportedly there was some bright red blood per rectum although our office had a phone call that describes smearing and not a significant amount of bright red blood per rectum although not sure if he was having melanotic stool at that time because family described the bowel movements as muddy. In any case, the patient came into the emergency room with bright red blood per rectum and developed some hematemesis with some coffee ground emesis as well. NG tube revealed some bright red blood. The patient has been on anticoagulation and had an upper endoscopy this morning. After the upper endoscopy, followup hematocrit had been stable and I was able to evaluate the patient recently again after seeing him in the recovery room and revealed no further rectal bleeding. He is on Octreotide at this time. PAST MEDICAL HISTORY: 1. Diabetes mellitus. 2. Hypertension. 3. Hyperlipidemia. 4. Atrial fibrillation. 5. Atrial fibrillation. 6. BPH. 7. Bladder cancer. 8. Cataract surgery. 9. Cystoscopy. 10. Hernia repair. 11. Refractory migraines. FAMILY HISTORY: Colon cancer and breast cancer. PHYSICAL EXAMINATION: General: Reveals a sedated, 84-year-old male who does respond to gentle palpation and stimuli. Lungs: Clear anteriorly. Heart: Regular with multiple irregular beats (he has a history of A fib). Abdomen: Soft, nontender, nondistended, no guarding, no rebound. No peritoneal signs are appreciated. IMPRESSION/PLAN: The patient has GI bleed secondary to anticoagulation. Etiology of the bleed is undetermined at this time but it seems as though it is multiple spots. Upper GI is contributing to some of his anemia although I do have concerns with this muddy stool, whether this actually is melanotic stool and whether this was possibly even a small bowel etiology. Obviously the polyps appreciated in the right colon that were removed could contribute to some darker blood, typically clots and dark maroon but unusually that it would black per se and thus at this point, the etiology still is yet to be determined but I would recommend that he stay NPO, IV fluids and his Octreotide for now. If he develops rapid bleeding, then I would recommend angiography with possible angiographic embolization. He may need a bowel prep with a colonoscopy should he have slow but decreasing hematocrit over the ensuing few days but I would recommend that we allow the anticoagulation to slowly wean itself off prior to proceeding with that. Otherwise if his hematocrit stays stable overnight, I would recommend starting him on clear liquids. If it stays stable for another 24 hours after that, DC-ing the Octreotide and starting him on a regular diet is warranted. I would wait at least another 7-14 days prior to starting the anticoagulation to allow the colon polyp sites to heal completely and allow the area with esophagitis to heal as well.
[2020-10-03] MEDS: TAMSULOSIN 0.4 MG CAP PO SCH (20:17)
[2020-10-03] MEDS: SIMVASTATIN 10 MG TAB PO SCH (20:18)
--- NOTE | 2020-10-03 20:43 | ECGEPIP ---
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
--- NOTE | 2020-10-03 20:45 | ECGEPIP ---
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
[2020-10-03 21:32] LABS: HEMATOCRIT 28.8 % (42.0-52.0)
[2020-10-03 21:57] LABS: CK-MB VALUE MASS 36.6 NG/ML (<3.6); MB/CK RELATIVE INDEX 4.97 (< OR =4); TROPONIN I 16.1 NG/ML (< 0.10)
[2020-10-04] VITALS (12 sets, daily range): BP systolic 91–138; BP diastolic 51–65
[2020-10-04] MEDS: OCTREOTIDE ACETATE 1,200 MCG in NS 238.8 ML IV SCH (01:32)
[2020-10-04 03:37] LABS: BASO % 0.1 % (0.0-1.0); EOS % 0.2 % (0.0-3.0); HEMATOCRIT 28.2 % (42.0-52.0); HEMOGLOBIN 9.7 g/dl (13.5-17.5); LYMPH # 0.8 10^3/uL (1.5-5.0); LYMPH % 5.9 % (24.0-44.0); MEAN CORPUSCULAR HEMOGLOBIN 31.4 pg (27.0-33.0); MEAN CORPUSCULAR HGB CONC 34.4 g/dl (32.0-36.5); MEAN CORPUSCULAR VOLUME 91.3 fl (80.0-96.0); MONO % 7.9 % (2.0-8.0); NEUTROPHILS % 85.1 % (36.0-66.0); PLATELET COUNT, AUTOMATED 190 10^3/uL (150-450); RED BLOOD COUNT 3.09 10^6/uL (4.30-6.10)
[2020-10-04 03:48] LABS: INR 1.52; PROTHROMBIN TIME 18.6 SECONDS (12.5-14.3)
[2020-10-04 04:02] LABS: ALBUMIN 2.3 GM/DL (3.2-5.2); ALT/SGPT 29 U/L (12-78); BILIRUBIN,TOTAL 1.1 MG/DL (0.2-1.0); BLOOD UREA NITROGEN 10 MG/DL (7-18); CALCIUM LEVEL 6.8 MG/DL (8.8-10.2); CARBON DIOXIDE LEVEL 25 MEQ/L (21-32); CHLORIDE LEVEL 99 MEQ/L (98-107); CK-MB VALUE MASS 23.8 NG/ML (<3.6); CREATININE FOR GFR 0.53 MG/DL (0.70-1.30); GLOMERULAR FILTRATION RATE > 60.0 (>35); GLUCOSE, FASTING 118 MG/DL (70-100); MAGNESIUM LEVEL 2.2 MG/DL (1.8-2.4); MB/CK RELATIVE INDEX 4.43 (< OR =4); POTASSIUM SERUM 3.7 MEQ/L (3.5-5.1); SODIUM LEVEL 131 MEQ/L (136-145); TOTAL PROTEIN 4.9 GM/DL (6.4-8.2)
--- NOTE | 2020-10-04 07:22 | ECHO ---
ECHOCARDIOGRAM DATE OF PROCEDURE: 10/03/2020 Age: 84 Gender: Male Height: 72 inches Weight: 176 pounds Body surface area: 2.02 m2 PATIENT LOCATION: Inpatient ICU, Room 3206. REFERRING PHYSICIAN: Kit Bo MD. INDICATION: Abnormal EKG. MEASUREMENTS: 2D Measurements: RV 4.2 cm LV 5.0 cm Septum 1.0 cm Posterior wall 1.0 cm Aortic Root 3.9 cm LA 4.0 cm LVEF 45% Doppler Measurements: AV 1.06 m/s LVOT 0.96 m/s LVOT diameter 2.0 cm MV-E 96, A 141, E/A ratio 0.7 Early mitral deceleration time 248 msec E prime medial 6, A prime medial 12, E prime lateral 6.3 Average E/E prime ratio 15.6/PCWP 21.3 mmHg PV 0.75 m/s Pulmonary artery acceleration time 95 msec RVSP 49 mmHg IVC 2.1 cm COMMENTS: Normal sinus rhythm/sinus bradycardia without intraventricular conduction disturbance. M-mode and two-dimensional echocardiography was performed with pulse, continuous wave, color flow, and tissue Doppler studies. Normal left ventricular size and wall thickness with septal, apical, and distal anterior akinesis. The inferior wall and most of the lateral wall move normally or were hyperkinetic. Mildly dilated left atrium with grade 1 LV diastolic dysfunction and currently elevated estimated mean left atrial pressure. Mildly dilated right heart chambers with normal right ventricular free wall motion and Doppler evidence of moderate pulmonary hypertension. IVC size upper limits of normal with slightly reduced respiratory collapse in keeping with at least mildly elevated central venous pressure. Aortic dimensions upper limits of normal. Aortic valvular sclerosis without stenosis and only trace insufficiency. Mild degenerative changes of the mitral valve apparatus with normal leaflet excursion and no posterior systolic buckling, but moderate mitral insufficiency. Normal appearing tricuspid valve with at least moderate insufficiency. No apparent intracardiac mass or pericardial effusion. MTDD
--- NOTE | 2020-10-04 07:36 | IPN ---
PROGRESS NOTE DATE: 10/04/2020 SUBJECTIVE: Mr. Mg tells me that he is feeling much better today. He denies any chest pain or sensation of shortness of breath. He is a little more oriented today and he has a little more insight into what is going on. There have not been any significant events overnight. OBJECTIVE: VITAL SIGNS: This morning blood pressure 121/57, but for the most part it was runner lower than that in the 90s and low 100s. Heart rate has been in the 70s. Saturation is 95% on room air. Weight is recorded at 78.2 kg. GENERAL: Today he is alert and oriented x2. He did not know the date, which is not surprising. He answers all questions appropriately and has appropriate questions himself. NECK: His JVP is not high. LUNGS: Relatively clear with occasional crackle and producing cough, but clearing after coughing. HEART: Reveals a regular rhythm. I do not appreciate any gallop, rub, or murmur. ABDOMEN: Soft with no obvious guarding or tenderness. EXTREMITIES: Have mild edema. Peripheral pulses are palpable. NEUROLOGIC: For the most part is intact. LABORATORY DATA: CBC reveals WBC count 13,000, hemoglobin 9.7, hematocrit 28, platelets 190,000. Basic metabolic panel is normal, but for mild hyponatremia 131 and glucose 118. His troponin peaked at 28.2 and has been declining since. The peak CK was about 1200 with CK-MB approximately 56. DIAGNOSTIC STUDIES: He had an echocardiogram yesterday and I am not aware of the results yet. ASSESSMENT AND PLAN: Mr. Mg is an 84-year-old man who underwent colonoscopy last week and the day after was restarted on Eliquis for history of paroxysmal atrial fibrillation. He unfortunately developed gastrointestinal (GI) bleeding and came to the hospital the day before yesterday severely anemic, confused, and hyponatremia. He also has biochemical and EKG evidence for myocardial infarction. Unfortunately due to active bleeding, we were not able to give him any antiplatelet agents. Also, his Eliquis was obviously stopped. So far, he has been tolerating the cardiac compromise well. There have not been any arrhythmias and his vital signs remain stable. I do not appreciate congestive heart failure by physical examination. Because of relatively bradycardic rate and low blood pressure, he has not been receiving any beta-blockers. He has been continued on a statin as the only cardiac related medicine. Unfortunately, I am afraid that this will continue today. I am hoping that the octreotide can be stopped today and then depending on his condition, we potentially can put him on an antiplatelet agent maybe tomorrow. Ultimately, it is possible that the beta-blockers can be restarted very slowly depending on his clinical condition. The question about pursuing further cardiac evaluation will be challenging with his current history, but I do believe that we can assume that the bleeding was a combination of esophagitis, which will heal and multiple polyps from colon resection, which will heal as well. Consequently, I do believe that with some delay, he can have either coronary angiography or at least noninvasive evaluation for ischemia.
[2020-10-04] MEDS: DOCUSATE SODIUM 100MG CAPSULE PO SCH ×2 (09:00→19:42)
[2020-10-04] MEDS: PANTOPRAZOLE 40MG VIAL (C9113 PER 1) IV SCH ×2 (10:03→20:23)
--- NOTE | 2020-10-04 12:19 | IPNPDOC ---
Text Note Date of Service The patient was seen on 10/04/20. NOTE Subjective: Patient stated that he is doing better today. He is normotensive, no signs of any acute bleed. He denies any chest pain or palpitations Objective: GENERAL APPEARANCE: NAD HEENT: no scleral icterus, no JVD, EOMI CARDIOVASCULAR: S1S2 LUNGS: Diminished lung sounds bilaterally ABDOMEN: soft & nondistended MUSCULOSKELETAL: no cyanosis, + 1 nonpitting edema of LE b/l INTEGUMENT: stasis dermatitis of both lower extremities NEUROLOGICAL: Moves 4 limbs, no nuchal rigidity, cranial nerves II through XII intact Assessment and plan Patient is 84-year-old male history of atrial fibrillation on eliquis recently had a colonoscopy and started on eliquis who started having lower bright red blood per rectum who is being admitted for management of symptomatic anemia and confusion in the setting of GI bleeding. Found to have NSTEMI but not candidate for heparin drip or cardiac intervention at this time per Dr Palomares. Will be admitted to ICU. EGD was done on 10/03/20 patient was found to have Mildly severe esophagitis with no bleeding was found in the lower third of the esophagus GI bleed Most likely secondary to Eliquis Patient developed hematemesis and bright red bleeding per rectum Last week patient had colonoscopy with polyps removal by Dr. Cesar EGD was done patient was found to have Mildly severe esophagitis with no bleeding was found in the lower third of the esophagus, No significant bleeding source seen on this exam. Suspect may have had some minor bleeding from esophagitis as source for coffee ground/blood in NGT Hemoglobin stable Continue Protonix, DC octreotide IV NStemi EKG showed no ST elevation Troponin trended down Patient is not candidate for anticoagulation or cardiac catheterization for now due to high risk of GI bleed Dr. Palomares follows him Beta blockers on hold for now Echo pending Continue to monitor troponin Atrial fibrillation Heart rate under control Anticoagulation on hold Acute anemia Secondary to GI bleed Patient received 2 units of blood Hemoglobin 9.7 in the morning Hyperlipidemia Continue sliding BPH Continue home meds Hyponatremia Most likely secondary to SIADH urine osmolarity more than serum osmolality Improved Continue fluid restriction VS,Fishbone, I+O VS, Fishbone, I+O Laboratory Tests 10/03/20 15:02 10/03/20 21:01 10/04/20 03:03 Vital Signs Date Time Temp Pulse Resp B/P (MAP) Pulse Ox O2 Delivery O2 Flow Rate FiO2 10/04/20 08:00 97.8 73 18 119/61 (80) 95 Room Air 10/03/20 09:30 2.0 I&O- Last 24 Hours up to 6 AM 10/04/20 06:00 Intake Total 1074.1 ml Output Total 1805 ml Balance -730.9 ml AUDREY KOENIG DO Oct 04, 2020 12:19
[2020-10-04 12:28] LABS: HEMATOCRIT 31.1 % (42.0-52.0); HEMOGLOBIN 10.6 g/dl (13.5-17.5)
[2020-10-04 18:19] LABS: HEMATOCRIT 29.6 % (42.0-52.0)
[2020-10-04] MEDS: SIMVASTATIN 10 MG TAB PO SCH (20:23)
[2020-10-04] MEDS: TAMSULOSIN 0.4 MG CAP PO SCH (20:24)
[2020-10-04] MEDS: LATANOPROST 0.005% OPHTH SOLN 2.5 ML OU SCH (21:00)
[2020-10-05 00:23] LABS: HEMATOCRIT 26.4 % (42.0-52.0); HEMOGLOBIN 9.1 g/dl (13.5-17.5)
[2020-10-05 06:00] VITALS: BP 103/62
[2020-10-05 06:28] LABS: BASO % 0.2 % (0.0-1.0); EOS # 0.2 10^3/uL (0.0-0.5); EOS % 1.9 % (0.0-3.0); HEMATOCRIT 27.2 % (42.0-52.0); HEMOGLOBIN 9.4 g/dl (13.5-17.5); LYMPH # 0.8 10^3/uL (1.5-5.0); LYMPH % 9.6 % (24.0-44.0); MEAN CORPUSCULAR HEMOGLOBIN 31.6 pg (27.0-33.0); MEAN CORPUSCULAR HGB CONC 34.6 g/dl (32.0-36.5); MEAN CORPUSCULAR VOLUME 91.6 fl (80.0-96.0); MONO # 0.8 10^3/uL (0.0-0.8); MONO % 9.7 % (2.0-8.0); NEUTROPHILS # 6.6 10^3/uL (1.5-8.5); NEUTROPHILS % 77.9 % (36.0-66.0); PLATELET COUNT, AUTOMATED 198 10^3/uL (150-450); RED BLOOD COUNT 2.97 10^6/uL (4.30-6.10); WHITE BLOOD COUNT 8.5 10^3/uL (4.0-10.0)
[2020-10-05 06:37] LABS: INR 1.33; PROTHROMBIN TIME 16.8 SECONDS (12.5-14.3)
[2020-10-05 06:58] LABS: ALBUMIN 2.3 GM/DL (3.2-5.2); ALT/SGPT 26 U/L (12-78); BILIRUBIN,TOTAL 0.8 MG/DL (0.2-1.0); BLOOD UREA NITROGEN 8 MG/DL (7-18); CALCIUM LEVEL 6.9 MG/DL (8.8-10.2); CARBON DIOXIDE LEVEL 26 MEQ/L (21-32); CHLORIDE LEVEL 101 MEQ/L (98-107); CREATININE FOR GFR 0.48 MG/DL (0.70-1.30); GLOMERULAR FILTRATION RATE > 60.0 (>35); GLUCOSE, FASTING 112 MG/DL (70-100); MAGNESIUM LEVEL 1.9 MG/DL (1.8-2.4); POTASSIUM SERUM 3.6 MEQ/L (3.5-5.1); SODIUM LEVEL 133 MEQ/L (136-145); TOTAL PROTEIN 4.8 GM/DL (6.4-8.2)
[2020-10-05] MEDS ORDERED: ASPIRIN 81MG ENTERIC TABLET PO SCH (09:00)
[2020-10-05] MEDS ORDERED: FERROUS GLUCONATE 324 MG TAB PO SCH (09:00)
[2020-10-05] MEDS: PANTOPRAZOLE 40MG VIAL (C9113 PER 1) IV SCH (09:51)
[2020-10-05] MEDS: DOCUSATE SODIUM 100MG CAPSULE PO SCH (09:51)
[2020-10-05] MEDS ORDERED: DOK1CAP7 PO (11:22)
[2020-10-05] MEDS ORDERED: ASPI-551 PO (11:22)
[2020-10-05] MEDS ORDERED: FERR32TA PO (11:22)
[2020-10-05] MEDS ORDERED: PANT40TA29 PO (11:22)
[2020-10-05 12:13] LABS: HEMATOCRIT 27.2 % (42.0-52.0); HEMOGLOBIN 9.3 g/dl (13.5-17.5)
[2020-10-05 14:00] VITALS: BP 110/59
--- NOTE | 2020-10-05 18:42 | DS.PDOC ---
Discharge Summary General Date of Admission Oct 02, 2020 at 21:20 Date of Discharge 10/05/20 Discharge Summary PROCEDURES PERFORMED DURING STAY: [None]. ADMITTING DIAGNOSES: GI bleed NStemi Acute anemia Atrial fibrillation Hyperlipidemia BPH Hyponatremia DISCHARGE DIAGNOSES: GI bleed NStemi Acute anemia Atrial fibrillation Hyperlipidemia BPH Hyponatremia COMPLICATIONS/CHIEF COMPLAINT: Ams,Rectal Bleeding. HISTORY OF PRESENT ILLNESS:This is an 84-year-old male history of atrial fibrillation on eliquis who was brought in a son because of 3 day history of bright red bleeding per rectum. Patient had a colonoscopy with Dr. Cesar on during which polyps were removed and patient was started on eliquis on Thursday for his atrial fibrillation. His son noticed on Thursday he had an episode of bright red blood per rectum and discontinued with every bowel movement until today Thursday. During this time he noticed patient became progressively more confused at home and appeared to be weaker. Son tells me that the patient didnt have any complaints and appeared comfortable. EMS found the patient to be hypotensive approximately 80s/50s and he was given IV fluids and he responded well systolic blood pressure currently ~110. His son provided consent in the emergency department for blood products and patient was ordered 2 units of blood which were transfusing at the time that I saw him in the emergency department. Patient was pleasantly confused at bedside he did not know where he was, he was able to tell me that his son was at the bedside but didnt know his name. His son Bartolome provided all of the history. Troponin was noted to be elevated initially to 0.76 and then up to 8. TRENTON Pantoja spoke with Dr. Palomares who recommended admission and to hold beta audrey, hydrate and give blood products despite the elevated troponin. I also discussed the case with Dr Palomares. HOSPITAL COURSE: During the hospital stay following issue addressed GI bleed Most likely secondary to Eliquis Patient developed hematemesis and bright red bleeding per rectum Last week patient had colonoscopy with polyps removal by Dr. Cesar EGD was done patient was found to have Mildly severe esophagitis with no bleeding was found in the lower third of the esophagus, No significant bleeding source seen on this exam. Suspect may have had some minor bleeding from esophagitis as source for coffee ground/blood in NGT Hemoglobin stable Patient received treatment with Protonix, octreotide IV NStemi During hospital stay patient developed NSTEMI EKG showed no ST elevation Troponin was elevated up to 28, trended down Patient is not candidate for anticoagulation or cardiac catheterization for now due to high risk of GI bleed Dr. Palomares follows him, recommended to start aspirin today Atrial fibrillation Heart rate under control Anticoagulation on hold Acute anemia Secondary to GI bleed Patient received 2 units of blood Hemoglobin stable Hyperlipidemia Continue sliding BPH Continue home meds Hyponatremia Most likely secondary to SIADH urine osmolarity more than serum osmolality Improved Continue fluid restriction DISCHARGE MEDICATIONS: Please see below. ALLERGIES: Please see below. PHYSICAL EXAMINATION ON DISCHARGE: VITAL SIGNS: Please see below. GENERAL APPEARANCE: NAD HEENT: no scleral icterus, no JVD, EOMI CARDIOVASCULAR: S1S2 LUNGS: Diminished lung sounds bilaterally ABDOMEN: soft & nondistended MUSCULOSKELETAL: no cyanosis, + 1 nonpitting edema of LE b/l INTEGUMENT: stasis dermatitis of both lower extremities NEUROLOGICAL: Moves 4 limbs, no nuchal rigidity, cranial nerves II through XII intact LABORATORY DATA: Please see below. IMAGING: [facility] NAME: ESTRELLA FIERRO : 1935 MEDICAL REC #: [id number] ROOM: ICU ACCOUNT: [id number] ORDERING DOCTOR: BRYAN BO MD PATIENT STATUS: ADM IN DICTATING DOCTOR: Harvey Orozco MD, [facility] REPORT #: [id number] cc: [~ rep ct ivnm] ECHOCARDIOGRAM-DOPPLER REPORT Printed: [~ rep prt dt last] [~ rep prt tm last] Page 2 of [address] [address] ECHOCARDIOGRAM-DOPPLER REPORT ECHOCARDIOGRAM-DOPPLER REPORT Printed: [~ rep prt dt last] [~ rep prt tm last] Page 1 of 3 ECHOCARDIOGRAM DATE OF PROCEDURE: 10/03/2020 Age: 84 Gender: Male Height: 72 inches Weight: 176 pounds Body surface area: 2.02 m2 PATIENT LOCATION: Inpatient ICU, Room 320. REFERRING PHYSICIAN: Bryan Bo MD. INDICATION: Abnormal EKG. MEASUREMENTS: 2D Measurements: RV 4.2 cm LV 5.0 cm Septum 1.0 cm Posterior wall 1.0 cm Aortic Root 3.9 cm LA 4.0 cm LVEF 45% Doppler Measurements: AV 1.06 m/s LVOT 0.96 m/s LVOT diameter 2.0 cm MV-E 96, A 141, E/A ratio 0.7 Early mitral deceleration time 248 msec E prime medial 6, A prime medial 12, E prime lateral 6.3 Average E/E prime ratio 15.6/PCWP 21.3 mmHg PV 0.75 m/s Pulmonary artery acceleration time 95 msec RVSP 49 mmHg IVC 2.1 cm COMMENTS: Normal sinus rhythm/sinus bradycardia without intraventricular conduction disturbance. M-mode and two-dimensional echocardiography was performed with pulse, continuous wave, color flow, and tissue Doppler studies. Normal left ventricular size and wall thickness with septal, apical, and distal anterior akinesis. The inferior wall and most of the lateral wall move normally or were hyperkinetic. Mildly dilated left atrium with grade 1 LV diastolic dysfunction and currently elevated estimated mean left atrial pressure. Mildly dilated right heart chambers with normal right ventricular free wall motion and Doppler evidence of moderate pulmonary hypertension. IVC size upper limits of normal with slightly reduced respiratory collapse in keeping with at least mildly elevated central venous pressure. Aortic dimensions upper limits of normal. Aortic valvular sclerosis without stenosis and only trace insufficiency. Mild degenerative changes of the mitral valve apparatus with normal leaflet excursion and no posterior systolic buckling, but moderate mitral insufficiency. Normal appearing tricuspid valve with at least moderate insufficiency. No apparent intracardiac mass or pericardial effusion. DD: Harvey Orozco MD, [facility] 10/03/201921 DT: COLT 10/04/20706 DS: ANDREA 10/04/20816 <Electronically signed by Harvey Orozco > 10/04/20816 DS2: [~ rep ct labl] PROGNOSIS: Fair ACTIVITY: [As tolerated]. DIET: Cardiac DISPOSITION: 62 D/T Rehab Facility. DISCHARGE INSTRUCTIONS: Follow-up with dr Cesar and outdoor emergency care technician Dr. Palomares DISCHARGE CONDITION: [Stable]. TIME SPENT ON DISCHARGE: 40 minutes. Vital Signs/I&Os Vital Signs Date Time Temp Pulse Resp B/P (MAP) Pulse Ox O2 Delivery O2 Flow Rate FiO2 10/05/20 14:00 97.6 77 20 110/59 (76) 94 10/04/20 15:37 Room Air 10/03/20 09:30 2.0 I&O- Last 24 Hours up to 6 AM 10/05/20 06:00 Intake Total 2260 ml Output Total 850 ml Balance 1410 ml Laboratory Data Labs 24H Laboratory Tests 2 10/05/20 05:48: Immature Granulocyte % (Auto) 0.7, Neutrophils (%) (Auto) 77.9H, Lymphocytes (%) (Auto) 9.6L, Monocytes (%) (Auto) 9.7H, Eosinophils (%) (Auto) 1.9, Basophils (%) (Auto) 0.2, Neutrophils # (Auto) 6.6, Lymphocytes # (Auto) 0.8L, Monocytes # (Auto) 0.8, Eosinophils # (Auto) 0.2, Basophils # (Auto) 0.0, Nucleated Red Blood Cells % (auto) 0.0, Prothrombin Time 16.8H, Prothromb Time International Ratio 1.33, Anion Gap 6L, Glomerular Filtration Rate > 60.0, Calcium Level 6.9L, Magnesium Level 1.9, Total Bilirubin 0.8, Aspartate Amino Transf (AST/SGOT) 43H, Alanine Aminotransferase (ALT/SGPT) 26, Alkaline Phosphatase 52, Total Protein 4.8L, Albumin 2.3L, Albumin/Globulin Ratio 0.9 CBC/BMP Laboratory Tests 10/05/20 00:05 10/05/20 05:48 10/05/20 11:44 Discharge Medications Scheduled Aspirin (Aspirin EC) 81 Mg Tablet.dr, 81 MG PO DAILY Lencho/D3/Mag11/Zinc/Chief Executive/Harman/Bor (Caltrate 600+D Plus Tablet) 1 Each Tablet, 1 TAB PO DAILY, (Reported) Docusate Sodium (Docusate Sodium) 100 Mg Capsule, 100 MG PO BID, (Reported) Ferrous Gluconate (Ferrous Gluconate) 324 Mg Tablet, 324 MG PO BID Fluticasone Propionate (Fluticasone Propionate) 15.8 Ml [place].susp, 2 SPRAYS NA DAILY, (Reported) Latanoprost (Xalatan) 0.005% 2.5ML Drops, 1 DROP OU QHS, (Reported) Metoprolol Tartrate (Metoprolol Tartrate) 25 Mg Tablet, 25 MG PO BID, (Reported) Multivitamins (Thera M Plus Tablet) 1 Each Tablet, 1 TAB PO DAILY, (Reported) Pantoprazole Sodium (Pantoprazole Sodium) 40 Mg Tablet.dr, 40 MG PO DAILY Polyethylene Glycol 3350 (Miralax) 17 Gm Powd.pack, 17 GM PO DAILY, (Reported) Simvastatin (Simvastatin) 10 Mg Tablet, 10 MG PO QHS, (Reported) Tamsulosin HCl (Flomax) 0.4 Mg Capsule, 0.8 MG PO QHS, (Reported) Scheduled PRN Docusate Sodium (Dok) 100 Mg Capsule, 100 MG PO BID PRN for constipation Allergies Coded Allergies: No Known Allergies (Verified , 09/18/20) AUDREY KOENIG DO Oct 05, 2020 18:42
--- NOTE | 2020-10-05 23:54 | ECGEPIP ---
[facility] Test Date: 2020-10-03 Pat Name: ESTRELLA FIERRO Department: Room: [place] [address] Gender: Male [employer] Supervisor: MICHELLE CONNORS : 1935 Requested By: BRYAN Mora Order Number: [id number] Reading MD: Saad Peters Measurements Intervals [place] Rate: 72 P: 59 GA: 242 QRS: -33 QRSD: 94 T: 77 QT: 442 QTc: 483 Interpretive Statements Sinus rhythm with 1st degree AV block Left axis deviation/LAHB Anteroseptal infarct , age undetermined Last 2 tracing on 10/02/20. No remarkable changes Electronically Signed on 10-05-2020 23:54:23 EDT by Saad Peters
== END 2020-10-05 15:55 | DRG 280 ==
LOC: M ED 16:14 → EDBD 16:14 → M ED INP 21:20 → ENRESERV 23:28 → M ICU 23:55 → M MSPAV 10-04 15:37
PROVIDERS: ADMIT Family Medicine; ATTEND Internal Medicine
PROC: 30233N1 Transfusion of Nonautologous Red Blood Cells into Peripheral Vein, Percutaneous Approach (ICD-10-PCS; 2020-10-02)
PROC: 0DJ08ZZ Inspection of Upper Intestinal Tract, Via Natural or Artificial Opening Endoscopic (ICD-10-PCS; principal; 2020-10-03 06:35)
DX: I21.4 Non-ST elevation (NSTEMI) myocardial infarction (principal); K20.91 Esophagitis, unspecified with bleeding; D68.32 Hemorrhagic disorder due to extrinsic circulating anticoagulants; E87.1 Hypo-osmolality and hyponatremia; E22.2 Syndrome of inappropriate secretion of antidiuretic hormone; I48.0 Paroxysmal atrial fibrillation; H40.9 Unspecified glaucoma; N40.0 Benign prostatic hyperplasia without lower urinary tract symptoms; E78.5 Hyperlipidemia, unspecified; I10 Essential (primary) hypertension; Y83.8 Other surgical procedures as the cause of abnormal reaction of the patient, or of later complication, without mention of misadventure at the time of the procedure; E86.0 Dehydration; Z20.822 Contact with and (suspected) exposure to COVID-19; Z79.01 Long term (current) use of anticoagulants; Z79.899 Other long term (current) drug therapy; K22.2 Esophageal obstruction; K57.10 Diverticulosis of small intestine without perforation or abscess without bleeding; Z85.51 Personal history of malignant neoplasm of bladder

== ENCOUNTER 2020-10-05 13:10 | Inpatient (IN) | payer MEDICARE, OTHER ==
[~2020-10-05] VITALS: Ht 182.9 cm; Wt 73.4 kg
[~2020-10-05 13:10] MED LIST changes: +ASPI-551 PO; +CALTTAB6 PO; +DOCU100C16 PO; +DOK1CAP7 PO; +ELIQ5TAB; +ELIQ5TAB PO; +FERR32TA PO; +FLOM0.4C39 PO; +FLUT15.820; +METO25TA4 PO; +MIRA1POW3 PO; +PANT40TA29 PO; +SIMV10TA21 PO; +VITMTA PO; +XALA0.007 OU
[2020-10-05] MEDS ORDERED: MIRALAX *UNIT DOSE* 17GM PACKET PO PRN (15:15)
[2020-10-05] MEDS ORDERED: BISACODYL 10 MG SUPP PR PRN (15:15)
[2020-10-05] MEDS ORDERED: ACETAMINOPHEN TAB 650MG DOSE (2X325MG) PO PRN (15:15)
[2020-10-05] MEDS: REMEDY PHYTOPLEX Z-GUARD PASTE 113GM TUBE (FROM STOREROOM PRODUCT) TOP SCH ×2 (16:00→21:00)
[2020-10-05 16:10] VITALS: BP 133/77
[2020-10-05] MEDS: SUCRALFATE 1 GM TAB PO SCH (17:35)
[2020-10-05 20:00] VITALS: BP 112/64
[2020-10-05] MEDS: DOCUSATE SODIUM 100MG CAPSULE PO SCH (21:00)
[2020-10-05] MEDS: LATANOPROST 0.005% OPHTH SOLN 2.5 ML OU SCH (21:00)
[2020-10-05] MEDS: FLUTICASONE PROP 0.05% NASAL SPRAY 16 GM (FLONASE) NARES SCH (21:00)
[2020-10-05] MEDS: METOPROLOL TART 12.5 MG PER 1/2 TAB PO SCH (21:00)
[2020-10-05] MEDS: TAMSULOSIN 0.4 MG CAP PO SCH (21:25)
[2020-10-05] MEDS: FERROUS GLUCONATE 324 MG TAB PO SCH (21:25)
[2020-10-05] MEDS: PANTOPRAZOLE 40MG TAB (PROTONIX) PO SCH (21:26)
[2020-10-05] MEDS: SIMVASTATIN 10 MG TAB PO SCH (21:27)
[2020-10-06 05:38] VITALS: BP 111/57
[2020-10-06 07:53] LABS: BASO % 0.3 % (0.0-1.0); EOS # 0.2 10^3/uL (0.0-0.5); EOS % 3.1 % (0.0-3.0); HEMATOCRIT 29.1 % (42.0-52.0); HEMOGLOBIN 9.7 g/dl (13.5-17.5); LYMPH % 12.6 % (24.0-44.0); MEAN CORPUSCULAR HEMOGLOBIN 31.3 pg (27.0-33.0); MEAN CORPUSCULAR HGB CONC 33.3 g/dl (32.0-36.5); MEAN CORPUSCULAR VOLUME 93.9 fl (80.0-96.0); MONO # 0.8 10^3/uL (0.0-0.8); MONO % 10.3 % (2.0-8.0); NEUTROPHILS # 5.6 10^3/uL (1.5-8.5); NEUTROPHILS % 73.1 % (36.0-66.0); PLATELET COUNT, AUTOMATED 230 10^3/uL (150-450); WHITE BLOOD COUNT 7.7 10^3/uL (4.0-10.0)
[2020-10-06 08:22] LABS: ALBUMIN 2.5 GM/DL (3.2-5.2); ALT/SGPT 28 U/L (12-78); BILIRUBIN,TOTAL 0.7 MG/DL (0.2-1.0); BLOOD UREA NITROGEN 8 MG/DL (7-18); CALCIUM LEVEL 7.3 MG/DL (8.8-10.2); CARBON DIOXIDE LEVEL 30 MEQ/L (21-32); CHLORIDE LEVEL 103 MEQ/L (98-107); CREATININE FOR GFR 0.59 MG/DL (0.70-1.30); GLOMERULAR FILTRATION RATE > 60.0 (>35); GLUCOSE, FASTING 112 MG/DL (70-100); POTASSIUM SERUM 3.3 MEQ/L (3.5-5.1); SODIUM LEVEL 138 MEQ/L (136-145); TOTAL PROTEIN 5.4 GM/DL (6.4-8.2)
[2020-10-06] MEDS: METOPROLOL TART 12.5 MG PER 1/2 TAB PO SCH ×2 (09:00→20:40)
[2020-10-06] MEDS: DOCUSATE SODIUM 100MG CAPSULE PO SCH ×2 (09:00→20:40)
[2020-10-06] MEDS: REMEDY PHYTOPLEX Z-GUARD PASTE 113GM TUBE (FROM STOREROOM PRODUCT) TOP SCH ×3 (09:00→20:42)
[2020-10-06] MEDS: ASPIRIN 81MG ENTERIC TABLET PO SCH (09:19)
[2020-10-06] MEDS: FERROUS GLUCONATE 324 MG TAB PO SCH ×2 (09:19→20:40)
[2020-10-06] MEDS: FLUTICASONE PROP 0.05% NASAL SPRAY 16 GM (FLONASE) NARES SCH ×2 (09:19→20:41)
[2020-10-06] MEDS: MULTIVITAMINS/MINERALS THERAP 1 TAB PO SCH (09:19)
[2020-10-06] MEDS: PANTOPRAZOLE 40MG TAB (PROTONIX) PO SCH ×2 (09:19→20:40)
[2020-10-06] MEDS: SUCRALFATE 1 GM TAB PO SCH ×3 (09:22→17:38)
[2020-10-06] MEDS ORDERED: POTASSIUM CHLORIDE 10 MEQ SR TABLET PO ONE (09:30)
[2020-10-06 09:39] LABS: MAGNESIUM LEVEL 1.9 MG/DL (1.8-2.4)
--- NOTE | 2020-10-06 13:10 | HPEPDOC ---
Survey Research Analyst Note DATE OF ADMISSION: 10/05/20 DATE OF SERVICE: TIME OF ADMISSION: Please refer to physician's admission order. SOURCE OF ADMISSION INFORMATION: [facility] record and patient CHIEF COMPLAINT: weakness and confusion in setting of GI bleed HISTORY OF PRESENT ILLNESS: 84M pmh Afib, HLD, HTN, BPH, glaucoma who presented to [facility] ED on 10-02-20 with weakness and confusion with bright red blood per rectum x3 days following a colonoscopy procedure where he had polyps removed. He was found to have acute blood loss anemia with a hgb of of 7.3 and was hypotensive. He received 2 units of prbcs, his beta-audrey held, as well as his eliquis. Additionally he had NSTEMI but per cardiology was not a candidate for stenting while having active GI bleed and decision was made for patient to be admitted to [facility]. He developed coffee-ground emesis and underwent an emergency EGD on 10-03-20 where he was found to have signs of esophagitis. Dr. Cesar recommended patients eliquis be held for a period of time to allow for polyp removal sites to heal. Patient remained confused, was noted to have deficits in mobility and ADLs and deemed medically appropriate for discharge to ARU on 10-05-20. REVIEW OF SYSTEMS: The following is a completed review of systems and has been reviewed. Review of systems otherwise unremarkable. PAIN: Patient self reports no pain EYES:No recent vision changes EARS, NOSE, & THROAT: No throat pain, or dysphagia, or rhinorrhea CARDIOVASCULAR: Denies chest pain or palpitations PULMONARY: Denies shortness of breath GASTROINTESTINAL: Denies constipation/diarrhea GENITOURINARY: increased frequency MUSCULOSKELETAL: generalized weakness NEUROLOGICAL: +confused HEMATOLOGICAL: +anemia SKIN: PVD skin changes PSYCHIATRIC: +confused All other review of systems found to be negative. PAST MEDICAL HISTORY: as per hpi. PAST SURGICAL HISTORY: Inguinal surgery ALLERGIES: Please see below. MEDICATIONS: Please see below. FAMILY HISTORY: Bladder cancer SOCIAL HISTORY: No etoh/illicit drugs/smoking DIET: low sodium PHYSICAL EXAMINATION: VITAL SIGNS: Please see below. GENERAL: Pleasant and cooperative. No acute distress. HEENT: PERRL. Extraocular movements intact. Clear conjunctiva CARDIOVASCULAR: Irregular rate and rhythm. No murmurs, rubs, or gallops LUNGS: Clear to auscultation bilaterally. No wheezes. No rhonchi ABDOMEN: Soft, nontender, nondistended. Positive bowel sounds. Normal active bowel sounds NEUROLOGICAL: Alert and oriented times three. +tangential, Cranial nerves II through XII grossly intact. Sensation grossly intact EXTREMITIES: 5\5 strength bilateral upper extremities. 5\5 strength right lower extremity.5/5 strength in left lower extremity. +bilat LE edema SKIN: +hyperpigmentation of bilat calves and feet, pedal pulses intact LABORATORY DATA: Please see below. IMAGING: Imaging documentation personally reviewed by record FUNCTIONAL STATUS: Premorbid: Independent with all activities of daily life as well as mobility On Admission: contact guard for functional transfers, dressing, toileting, ambulation, bed mobility GOALS: Mod-I for functional transfers, dressing, toileting, ambulation, bed mobility ASSESSMENT:84-year-old M with past medical history of afib on eliquis who presents status post GI bleed with NSTEMI and new weakness and confusion PLAN: 1. REhab- PT/OT advance mobility and ADLs, strengthen/stretch/maintain ROM all 4 limbs -SONOGRAM TECHNICIAN for cog 2. Neuro- persistent confusion, unclear if this is baseline, will monitor and refer to neurology outpatient for dementia work-up 3. Cardiac- Afib with GI bleed- eliquis on hold until cleared by cardiology to restart, c/u metoprolol -s/p NSTEMI, monitor for chest pain, c/u ASA, f/u Dr. Palomares 0HLD- c/u statin 4. Resp- monitor for infection 5. GI- s/p recent colonoscopy with polyp removal complicated by Lower GI bleed, EGD on 10-03-20 showing esophagitis -c/u ppi and carafate -f/u surgery on d/c 6. - bph c/u flomax 7. Pain- tylenol prn 8. Heme- s/p 2 units of prbcs for blood loss anemia, tranfuse if hgb <8 or symptomatic -iron supplements 9. Dispo- TBD POST ADMISSION PHYSICIAN EVALUATION: Medical and functional status: Description of medical status, medical as sessment: As above. Rehabilitation diagnosis and current and prior cold morbid medical conditions as above. Risk of complications and plans to mitigate them as above. Description of functional status current status is as above. Prior status as above. Status compared to preadmission: There are no clinically significant differences between the patient's current status and the information described on the preadmission screening document. Treatment plan anticipated: Treatment plan is as described above. Required disciplines including physical therapy, occupational therapy, others as noted above Intensity of services: 3 hours a day, 6 days a week. Special considerations: There are no specific special or safety considerations that would likely preclude immediate implementation of an intensive r ehabilitation program or subsequently influence the plan of care. ATTESTATION: Considering all the information above, it is my best judgment that this patient requires intensive rehabilitation therapy as described above and an inpatient hospital environment due to the complexity of nursing, medical, and rehabilitation needs required by the patient. Furthermore, this patient can reasonably be expected to participate in an benefit from an inpatient rehabilitation stay with an interdisciplinary team approach to the delivery of rehabilitation care under the direction and supervision of rehabilitation physician. PROGNOSIS: good ESTIMATED LENGTH OF STAY:10-12 days. PROJECTED DISCHARGE DESTINATION: Home with family support and any durable medical equipment required to increase functional safety and mobility TIME SPENT COUNSELING AND COORDINATING INITIAL CARE: Greater than 70 minutes. Vital Signs Vital Sign - Last 24 Hours 10/05/20 10/05/20 10/05/20 10/05/20 16:10 20:00 20:00 21:00 Temp 97.9 97.8 97.8 Pulse 77 60 60 60 Resp 18 18 18 B/P (MAP) 133/77 (95) 112/64 (80) 112/64 (80) 112/64 Pulse Ox 95 97 97 O2 Delivery Room Air Room Air Room Air 10/06/20 10/06/20 05:38 09:00 Temp 97.6 Pulse 75 80 Resp 18 B/P (MAP) 111/57 (75) 94/51 Pulse Ox 95 O2 Delivery Room Air Laboratory Data CBC/BMP Laboratory Tests 10/06/20 07:30 Labs 24H Laboratory Tests 2 10/06/20 07:30: Immature Granulocyte % (Auto) 0.6, Neutrophils (%) (Auto) 73.1H, Lymphocytes (%) (Auto) 12.6L, Monocytes (%) (Auto) 10.3H, Eosinophils (%) (Auto) 3.1H, Basophils (%) (Auto) 0.3, Neutrophils # (Auto) 5.6, Lymphocytes # (Auto) 1.0L, Monocytes # (Auto) 0.8, Eosinophils # (Auto) 0.2, Basophils # (Auto) 0.0, Nucleated Red Blood Cells % (auto) 0.0, Anion Gap 5L, Glomerular Filtration Rate > 60.0, Calcium Level 7.3L, Magnesium Level 1.9, Total Bilirubin 0.7, Aspartate Amino T ransf (AST/SGOT) 33, Alanine Aminotransferase (ALT/SGPT) 28, Alkaline Phosphatase 58, Total Protein 5.4L, Albumin 2.5L, Albumin/Globulin Ratio 0.9 10/06/20 10:15: Urine Color YELLOW, Urine Appearance CLEAR, Urine pH 6.0, Urine Specific [place] 1.004, Urine Protein NEGATIVE, Urine Glucose (UA) NEGATIVE, Urine Ketones NEGATIVE, Urine Blood 1+H, Urine Nitrite NEGATIVE, Urine Bilirubin NEGATIVE, Urine Urobilinogen 2.0H, Urine Leukocyte Esterase NEGATIVE, Urine WBC (Auto) 0, Urine RBC (Auto) 3, Urine Hyaline Casts (Auto) 1, Urine Bacteria (Auto) NEGATIVE, Urine Squamous Epithelial Cells 0, Urine Mucus (Auto) SMALL, Urine Sperm (Auto) Home Medications Scheduled Aspirin (Aspirin EC) 81 Mg Tablet.dr, 81 MG PO DAILY Lencho/D3/Mag11/Zinc/Clinical Rn Manager/Harman/Bor (Caltrate 600+D Plus Tablet) 1 Each Tablet, 1 TAB PO DAILY, (Reported) Docusate Sodium (Docusate Sodium) 100 Mg Capsule, 100 MG PO BID, (Reported) Ferrous Gluconate (Ferrous Gluconate) 324 Mg Tablet, 324 MG PO BID Fluticasone Propionate (Fluticasone Propionate) 15.[address] [place].susp, 2 SPRAYS NA DAILY, (Reported) Latanoprost (Xalatan) 0.005% 2.5ML Drops, 1 DROP OU QHS, (Reported) Metoprolol Tartrate (Metoprolol Tartrate) 25 Mg Tablet, 25 MG PO BID, (Reported) Multivitamins (Thera M Plus Tablet) 1 Each Tablet, 1 TAB PO DAILY, (Reported) Pantoprazole Sodium (Pantoprazole Sodium) 40 Mg Tablet.dr, 40 MG PO DAILY Polyethylene Glycol 3350 (Miralax) 17 Gm Powd.pack, 17 GM PO DAILY, (Reported) Simvastatin (Simvastatin) 10 Mg Tablet, 10 MG PO QHS, (Reported) Tamsulosin HCl (Flomax) 0.4 Mg Capsule, 0.8 MG PO QHS, (Reported) Scheduled PRN Docusate Sodium (Dok) 100 Mg Capsule, 100 MG PO BID PRN for constipation Allergies Coded Allergies: No Known Allergies (Verified , 09/18/20) A-FIB/CHADSVASC A-FIB History Current/History of A-Fib/PAF?: Yes Current PO Anticoag Therapy: No SUDARSHAN SINGH MD Oct 06, 2020 13:10
[2020-10-06 14:00] VITALS: BP 137/67
--- NOTE | 2020-10-06 15:01 | IPNPDOC ---
Text Note Date of Service The patient was seen on 10/06/20. NOTE Subjective: No any acute events overnight. Patient denies fever, chills, nausea, tachycardia dysuria Objective: GENERAL APPEARANCE: NAD HEENT: no scleral icterus, no JVD, EOMI CARDIOVASCULAR: S1S2 LUNGS: Diminished lung sounds bilaterally ABDOMEN: soft & nondistended MUSCULOSKELETAL: no cyanosis, no edema INTEGUMENT: stasis dermatitis of both lower extremities NEUROLOGICAL: Moves 4 limbs, no nuchal rigidity, cranial nerves II through XII intact Assessment and plan Patient is 84-year-old male history of atrial fibrillation on eliquis recently had a colonoscopy and started on eliquis who started having lower bright red blood per rectum who is being admitted for management of symptomatic anemia and confusion in the setting of GI bleeding. Found to have NSTEMI but not candidate for heparin drip or cardiac intervention at this time per Dr Palomares. Will be admitted to ICU. EGD was done on 10/03/20 patient was found to have Mildly severe esophagitis with no bleeding was found in the lower third of the esophagus. Subsequently his bleeding stopped. Patient was transferred to acute rehabilitation unit. History of GI bleed Most likely secondary to Eliquis Hemoglobin stable, Eliquis on hold Continue PPI History of NStemi/CAD Dr. Palomares follows him Continue Beta blockers, aspirin, statin Atrial fibrillation Heart rate under control Anticoagulation on hold Normocytic anemia Secondary to GI bleed Hemoglobin stable Hyperlipidemia Continue statin BPH Continue home meds VS,Fishbone, I+O VS, Fishbone, I+O Laboratory Tests 10/06/20 07:30 Vital Signs Date Time Temp Pulse Resp B/P (MAP) Pulse Ox O2 Delivery O2 Flow Rate FiO2 10/06/20 09:00 80 94/51 10/06/20 05:38 97.6 18 95 Room Air I&O- Last 24 Hours up to 6 AM 10/06/20 05:59 Intake Total 760 ml Output Total 927 ml Balance -167 ml AUDREY KOENIG DO Oct 06, 2020 15:01
[2020-10-06 20:00] VITALS: BP 119/67
[2020-10-06] MEDS: TAMSULOSIN 0.4 MG CAP PO SCH (20:40)
[2020-10-06] MEDS: SIMVASTATIN 10 MG TAB PO SCH (20:40)
[2020-10-06] MEDS: LATANOPROST 0.005% OPHTH SOLN 2.5 ML OU SCH (20:53)
[2020-10-07 05:43] VITALS: BP 102/59
[2020-10-07 07:26] LABS: BLOOD UREA NITROGEN 11 MG/DL (7-18); CALCIUM LEVEL 7.2 MG/DL (8.8-10.2); CARBON DIOXIDE LEVEL 29 MEQ/L (21-32); CHLORIDE LEVEL 106 MEQ/L (98-107); CREATININE FOR GFR 0.55 MG/DL (0.70-1.30); GLOMERULAR FILTRATION RATE > 60.0 (>35); GLUCOSE, FASTING 110 MG/DL (70-100); POTASSIUM SERUM 3.7 MEQ/L (3.5-5.1); SODIUM LEVEL 139 MEQ/L (136-145)
[2020-10-07] MEDS: MULTIVITAMINS/MINERALS THERAP 1 TAB PO SCH (09:32)
[2020-10-07] MEDS: PANTOPRAZOLE 40MG TAB (PROTONIX) PO SCH ×2 (09:32→20:13)
[2020-10-07] MEDS: FERROUS GLUCONATE 324 MG TAB PO SCH ×2 (09:32→20:13)
[2020-10-07] MEDS: REMEDY PHYTOPLEX Z-GUARD PASTE 113GM TUBE (FROM STOREROOM PRODUCT) TOP SCH ×3 (09:32→20:14)
[2020-10-07] MEDS: SUCRALFATE 1 GM TAB PO SCH ×3 (09:32→17:09)
[2020-10-07] MEDS: ASPIRIN 81MG ENTERIC TABLET PO SCH (09:32)
[2020-10-07] MEDS: DOCUSATE SODIUM 100MG CAPSULE PO SCH ×2 (09:32→20:13)
[2020-10-07] MEDS: FLUTICASONE PROP 0.05% NASAL SPRAY 16 GM (FLONASE) NARES SCH ×2 (09:32→20:14)
[2020-10-07] MEDS: METOPROLOL TART 12.5 MG PER 1/2 TAB PO SCH ×2 (09:33→20:14)
[2020-10-07 14:30] VITALS: BP 139/70
[2020-10-07] MEDS: TAMSULOSIN 0.4 MG CAP PO SCH (20:13)
[2020-10-07] MEDS: SIMVASTATIN 10 MG TAB PO SCH (20:13)
[2020-10-07] MEDS: LATANOPROST 0.005% OPHTH SOLN 2.5 ML OU SCH (20:14)
[2020-10-07 22:00] VITALS: BP 114/63
[2020-10-08 06:46] VITALS: BP 108/58
[2020-10-08 07:09] LABS: BASO % 0.1 % (0.0-1.0); EOS # 0.3 10^3/uL (0.0-0.5); EOS % 4.8 % (0.0-3.0); HEMOGLOBIN 8.7 g/dl (13.5-17.5); LYMPH % 13.4 % (24.0-44.0); MEAN CORPUSCULAR HEMOGLOBIN 31.2 pg (27.0-33.0); MEAN CORPUSCULAR HGB CONC 33.5 g/dl (32.0-36.5); MEAN CORPUSCULAR VOLUME 93.2 fl (80.0-96.0); MONO # 0.7 10^3/uL (0.0-0.8); MONO % 9.8 % (2.0-8.0); NEUTROPHILS # 5.1 10^3/uL (1.5-8.5); NEUTROPHILS % 71.2 % (36.0-66.0); PLATELET COUNT, AUTOMATED 230 10^3/uL (150-450); RED BLOOD COUNT 2.79 10^6/uL (4.30-6.10); WHITE BLOOD COUNT 7.1 10^3/uL (4.0-10.0)
[2020-10-08 07:31] LABS: BLOOD UREA NITROGEN 12 MG/DL (7-18); CALCIUM LEVEL 7.2 MG/DL (8.8-10.2); CARBON DIOXIDE LEVEL 27 MEQ/L (21-32); CHLORIDE LEVEL 104 MEQ/L (98-107); CREATININE FOR GFR 0.55 MG/DL (0.70-1.30); GLOMERULAR FILTRATION RATE > 60.0 (>35); GLUCOSE, FASTING 107 MG/DL (70-100); POTASSIUM SERUM 3.2 MEQ/L (3.5-5.1); SODIUM LEVEL 138 MEQ/L (136-145)
[2020-10-08] MEDS: FERROUS GLUCONATE 324 MG TAB PO SCH ×2 (08:12→20:53)
[2020-10-08] MEDS: SUCRALFATE 1 GM TAB PO SCH ×3 (08:12→16:39)
[2020-10-08] MEDS: ASPIRIN 81MG ENTERIC TABLET PO SCH (08:12)
[2020-10-08] MEDS: MULTIVITAMINS/MINERALS THERAP 1 TAB PO SCH (08:13)
[2020-10-08] MEDS: DOCUSATE SODIUM 100MG CAPSULE PO SCH ×2 (08:13→20:53)
[2020-10-08] MEDS: PANTOPRAZOLE 40MG TAB (PROTONIX) PO SCH ×2 (08:13→20:53)
[2020-10-08] MEDS: FLUTICASONE PROP 0.05% NASAL SPRAY 16 GM (FLONASE) NARES SCH ×2 (08:13→20:54)
[2020-10-08] MEDS: REMEDY PHYTOPLEX Z-GUARD PASTE 113GM TUBE (FROM STOREROOM PRODUCT) TOP SCH ×3 (08:14→20:54)
[2020-10-08 08:19] VITALS: BP 119/61
[2020-10-08] MEDS: METOPROLOL TART 12.5 MG PER 1/2 TAB PO SCH ×2 (08:20→20:52)
[2020-10-08] MEDS ORDERED: POTASSIUM CHLORIDE 10 MEQ SR TABLET PO ONE ×2 (10:15→10:35)
--- NOTE | 2020-10-08 10:26 | IPNPDOC ---
PM&R Progress Note DATE OF SERVICE: Oct 08, 2020 Palliative Care Nurse Practitioner Progress Note Subjective: Patient seen in his room stating he feels ok and denies any further bleeding. REVIEW OF SYSTEMS: The following is a completed review of systems and has been reviewed. Review of systems otherwise unremarkable. PAIN: Patient self reports no pain EYES:No recent vision changes EARS, NOSE, & THROAT: No throat pain, or dysphagia, or rhinorrhea CARDIOVASCULAR: Denies chest pain or palpitations PULMONARY: Denies shortness of breath GASTROINTESTINAL: Denies constipation/diarrhea GENITOURINARY: increased frequency MUSCULOSKELETAL: generalized weakness NEUROLOGICAL: +confused HEMATOLOGICAL: +anemia SKIN: PVD skin changes PSYCHIATRIC: +confused All other review of systems found to be negative. PHYSICAL EXAMINATION: VITAL SIGNS: Please see below. GENERAL: Pleasant and cooperative. No acute distress. HEENT: PERRL. Extraocular movements intact. Clear conjunctiva CARDIOVASCULAR: Irregular rate and rhythm. No murmurs, rubs, or gallops LUNGS: Clear to auscultation bilaterally. No wheezes. No rhonchi ABDOMEN: Soft, nontender, nondistended. Positive bowel sounds. Normal active bowel sounds NEUROLOGICAL: Alert and oriented times three. +tangential, Cranial nerves II through XII grossly intact. Sensation grossly intact EXTREMITIES: 5\5 strength bilateral upper extremities. 5\5 strength right lower extremity.5/5 strength in left lower extremity. +bilat LE edema (scant) SKIN: +hyperpigmentation of bilat calves and feet, pedal pulses intact ASSESSMENT:84-year-old M with past medical history of afib on eliquis who presents status post GI bleed with NSTEMI and new weakness and confusion PLAN: 1. REhab- PT/OT advance mobility and ADLs, strengthen/stretch/maintain ROM all 4 limbs, ambulating with RW -FRENCH LECTURER for cog 2. Neuro- persistent confusion, unclear if this is baseline, will monitor and refer to neurology outpatient for dementia work-up 3. Cardiac- Afib with GI bleed- eliquis on hold until cleared by cardiology to restart, c/u metoprolol -s/p NSTEMI, monitor for chest pain, c/u ASA, f/u Dr. Palomares -HLD- c/u statin 4. Resp- monitor for infection 5. GI- s/p recent colonoscopy with polyp removal complicated by Lower GI bleed, EGD on 6-2-21 showing esophagitis -c/u ppi and carafate -f/u surgery on d/c 6. - bph c/u flomax 7. Pain- tylenol prn 8. Heme- s/p 2 units of prbcs for blood loss anemia, transfuse if hgb <8 or symptomatic -iron supplements 9. Hypocalcemia- discussed with hospitalist who has ordered ionized calcium , will replete if needed 10. Dispo- TBD Allergies Coded Allergies: No Known Allergies (Verified , 09/18/20) Vital Signs Vital Signs Date Time Temp Pulse Resp B/P (MAP) Pulse Ox O2 Delivery O2 Flow Rate FiO2 10/08/20 08:20 79 119/61 10/08/20 06:46 98.8 20 94 Room Air Laboratory Data CBC/BMP Laboratory Tests 10/08/20 06:52 Labs 24H Laboratory Tests 2 10/08/20 06:52: Immature Granulocyte % (Auto) 0.7, Neutrophils (%) (Auto) 71.2H, Lymphocytes (%) (Auto) 13.4L, Monocytes (%) (Auto) 9.8H, Eosinophils (%) (Auto) 4.8H, Basophils (%) (Auto) 0.1, Neutrophils # (Auto) 5.1, Lymphocytes # (Auto) 1.0L, Monocytes # (Auto) 0.7, Eosinophils # (Auto) 0.3, Basophils # (Auto) 0.0, Nucleated Red Blood Cells % (auto) 0.0, Anion Gap 7L, Glomerular Filtration Rate > 60.0, Calcium Level 7.2L Current Medications Current Medications Current Medications Medications (Trade) Dose Ordered Sig/Krystal Route PRN Reason Start Time Stop Time Status Last Admin Dose Admin Acetaminophen (Tylenol Tab) 650 mg Q4HP PRN PO fever/MILD PAIN (PS 1-4) 10/05/20 15:15 Aspirin (Ecotrin) 81 mg DAILY PO 10/06/20 09:00 10/08/20 08:12 Bisacodyl (Dulcolax Suppository) 10 mg DAILYPRN PRN [place] CONSTIPATION 10/05/20 15:15 Docusate Sodium (Colace) 100 mg BID PO 10/05/20 21:00 10/08/20 08:13 Ferrous Gluconate (Fergon) 324 mg BID PO 10/05/20 21:00 6/7/21 08:12 Fluticasone Propionate (Flonase 0.05% Nasal [place]) 1 spray BID NARES 10/05/20 21:00 10/08/20 08:13 Latanoprost (Xalatan 0.005% Op Soln) 1 drop QHS OU 10/05/20 21:00 10/07/20 20:14 Metoprolol Tartrate (Lopressor) 12.5 mg BID PO 10/05/20 21:00 10/08/20 08:20 Multivitamins (Theragram-M) 1 tab DAILY PO 10/06/20 09:00 10/08/20 08:13 Pantoprazole Sodium (Protonix) 40 mg BID PO 10/05/20 21:00 10/08/20 08:13 Polyethylene Glycol (Miralax) 1 pkt DAILY PRN PO CONSTIPATION 10/05/20 15:15 Simvastatin (Zocor) 10 mg QHS PO 10/05/20 21:00 10/07/20 20:13 Sucralfate (Carafate) 1 gm AC PO 10/05/20 17:30 10/08/20 08:12 Tamsulosin HCl (Flomax) 0.8 mg QHS PO 10/05/20 21:00 10/07/20 20:13 SUDARSHAN SINGH MD Oct 08, 2020 10:26
[2020-10-08] MEDS: MAGNESIUM OXIDE 400MG TAB (MAG-OX) PO SCH (11:00)
[2020-10-08 14:00] VITALS: BP 105/48
[2020-10-08 20:00] VITALS: BP 109/63
[2020-10-08] MEDS: SIMVASTATIN 10 MG TAB PO SCH (20:52)
[2020-10-08] MEDS: TAMSULOSIN 0.4 MG CAP PO SCH (20:52)
[2020-10-08] MEDS: LATANOPROST 0.005% OPHTH SOLN 2.5 ML OU SCH (20:54)
[2020-10-09 06:39] VITALS: BP 102/62
[2020-10-09 06:44] LABS: BASO % 0.3 % (0.0-1.0); EOS # 0.4 10^3/uL (0.0-0.5); EOS % 5.1 % (0.0-3.0); HEMOGLOBIN 8.9 g/dl (13.5-17.5); LYMPH # 0.9 10^3/uL (1.5-5.0); LYMPH % 12.3 % (24.0-44.0); MEAN CORPUSCULAR HEMOGLOBIN 31.3 pg (27.0-33.0); MEAN CORPUSCULAR VOLUME 95.1 fl (80.0-96.0); MONO # 0.7 10^3/uL (0.0-0.8); MONO % 9.6 % (2.0-8.0); NEUTROPHILS # 5.1 10^3/uL (1.5-8.5); PLATELET COUNT, AUTOMATED 254 10^3/uL (150-450); RED BLOOD COUNT 2.84 10^6/uL (4.30-6.10); WHITE BLOOD COUNT 7.1 10^3/uL (4.0-10.0)
[2020-10-09 07:18] LABS: BLOOD UREA NITROGEN 12 MG/DL (7-18); CARBON DIOXIDE LEVEL 30 MEQ/L (21-32); CHLORIDE LEVEL 103 MEQ/L (98-107); CREATININE FOR GFR 0.58 MG/DL (0.70-1.30); GLOMERULAR FILTRATION RATE > 60.0 (>35); GLUCOSE, FASTING 118 MG/DL (70-100); POTASSIUM SERUM 4.1 MEQ/L (3.5-5.1); SODIUM LEVEL 138 MEQ/L (136-145)
[2020-10-09] MEDS: DOCUSATE SODIUM 100MG CAPSULE PO SCH ×2 (09:00→20:32)
[2020-10-09] MEDS: ASPIRIN 81MG ENTERIC TABLET PO SCH (09:12)
[2020-10-09] MEDS: PANTOPRAZOLE 40MG TAB (PROTONIX) PO SCH ×2 (09:12→20:32)
[2020-10-09] MEDS: MAGNESIUM OXIDE 400MG TAB (MAG-OX) PO SCH (09:12)
[2020-10-09] MEDS: SUCRALFATE 1 GM TAB PO SCH ×3 (09:12→16:59)
[2020-10-09] MEDS: CALCIUM/VITAMIN D 500 MG TAB PO SCH ×3 (09:13→20:31)
[2020-10-09] MEDS: FERROUS GLUCONATE 324 MG TAB PO SCH ×2 (09:13→20:32)
[2020-10-09] MEDS: POTASSIUM CHLORIDE 10 MEQ SR TABLET PO SCH (09:13)
[2020-10-09] MEDS: FLUTICASONE PROP 0.05% NASAL SPRAY 16 GM (FLONASE) NARES SCH ×2 (09:13→20:31)
[2020-10-09] MEDS: MULTIVITAMINS/MINERALS THERAP 1 TAB PO SCH (09:13)
[2020-10-09] MEDS: METOPROLOL TART 12.5 MG PER 1/2 TAB PO SCH ×2 (09:14→20:33)
[2020-10-09] MEDS: REMEDY PHYTOPLEX Z-GUARD PASTE 113GM TUBE (FROM STOREROOM PRODUCT) TOP SCH ×3 (09:15→20:34)
[2020-10-09 14:00] VITALS: BP 124/63
[2020-10-09 20:00] VITALS: BP 101/61
[2020-10-09] MEDS: LATANOPROST 0.005% OPHTH SOLN 2.5 ML OU SCH (20:31)
[2020-10-09] MEDS: SIMVASTATIN 10 MG TAB PO SCH (20:32)
[2020-10-09] MEDS: TAMSULOSIN 0.4 MG CAP PO SCH (20:32)
[2020-10-10 06:10] VITALS: BP 111/67
[2020-10-10] MEDS: REMEDY PHYTOPLEX Z-GUARD PASTE 113GM TUBE (FROM STOREROOM PRODUCT) TOP SCH ×3 (09:00→20:36)
[2020-10-10] MEDS: FLUTICASONE PROP 0.05% NASAL SPRAY 16 GM (FLONASE) NARES SCH ×2 (09:00→20:36)
[2020-10-10] MEDS: DOCUSATE SODIUM 100MG CAPSULE PO SCH ×2 (09:00→20:36)
[2020-10-10] MEDS: MULTIVITAMINS/MINERALS THERAP 1 TAB PO SCH (09:05)
[2020-10-10] MEDS: ASPIRIN 81MG ENTERIC TABLET PO SCH (09:05)
[2020-10-10] MEDS: PANTOPRAZOLE 40MG TAB (PROTONIX) PO SCH ×2 (09:05→20:34)
[2020-10-10] MEDS: METOPROLOL TART 12.5 MG PER 1/2 TAB PO SCH ×2 (09:05→20:34)
[2020-10-10] MEDS: SUCRALFATE 1 GM TAB PO SCH ×3 (09:05→16:39)
[2020-10-10] MEDS: FERROUS GLUCONATE 324 MG TAB PO SCH ×2 (09:05→20:34)
[2020-10-10] MEDS: POTASSIUM CHLORIDE 10 MEQ SR TABLET PO SCH (09:06)
[2020-10-10] MEDS: MAGNESIUM OXIDE 400MG TAB (MAG-OX) PO SCH (09:06)
[2020-10-10] MEDS: CALCIUM/VITAMIN D 500 MG TAB PO SCH ×3 (09:06→20:34)
--- NOTE | 2020-10-10 12:42 | IPNPDOC ---
PM&R Progress Note DATE OF SERVICE: Oct 09, 2020 Cook Helper Vegetable Progress Note Subjective: Patient seen in therapy wrking on laundry management, stating he is moving his bowel and still has not noticed any blood. he denies feeling light headed or weak. REVIEW OF SYSTEMS: The following is a completed review of systems and has been reviewed. Review of systems otherwise unremarkable. PAIN: Patient self reports no pain EYES:No recent vision changes EARS, NOSE, & THROAT: No throat pain, or dysphagia, or rhinorrhea CARDIOVASCULAR: Denies chest pain or palpitations PULMONARY: Denies shortness of breath GASTROINTESTINAL: Denies constipation/diarrhea GENITOURINARY: increased frequency MUSCULOSKELETAL: generalized weakness NEUROLOGICAL: +confused HEMATOLOGICAL: +anemia SKIN: PVD skin changes PSYCHIATRIC: +confused All other review of systems found to be negative. PHYSICAL EXAMINATION: VITAL SIGNS: Please see below. GENERAL: Pleasant and cooperative. No acute distress. HEENT: PERRL. Extraocular movements intact. Clear conjunctiva CARDIOVASCULAR: Irregular rate and rhythm. No murmurs, rubs, or gallops LUNGS: Clear to auscultation bilaterally. No wheezes. No rhonchi ABDOMEN: Soft, nontender, nondistended. Positive bowel sounds. Normal active bowel sounds NEUROLOGICAL: Alert and oriented times three. +tangential, Cranial nerves II through XII grossly intact. Sensation grossly intact EXTREMITIES: 5\5 strength bilateral upper extremities. 5\5 strength right lower extremity.5/5 strength in left lower extremity. +bilat LE edema (scant) SKIN: +hyperpigmentation of bilat calves and feet, pedal pulses intact ASSESSMENT:84-year-old M with past medical history of afib on eliquis who presents status post GI bleed with NSTEMI and new weakness and confusion PLAN: 1. REhab- PT/OT advance mobility and ADLs, strengthen/stretch/maintain ROM all 4 limbs, ambulating with RW -VITICULTURE TEACHER for cog 2. Neuro- persistent confusion, unclear if this is baseline, will monitor and refer to neurology outpatient for dementia work-up 3. Cardiac- Afib with GI bleed- eliquis on hold until cleared by cardiology to restart, c/u metoprolol -s/p NSTEMI, monitor for chest pain, c/u ASA, f/u Dr. Palomares -HLD- c/u statin 4. Resp- monitor for infection 5. GI- s/p recent colonoscopy with polyp removal complicated by Lower GI bleed, EGD on 10-03-20 showing esophagitis -c/u ppi and carafate -f/u surgery on d/c 6. - bph c/u flomax 7. Pain- tylenol prn 8. Heme- s/p 2 units of prbcs for blood loss anemia, transfuse if hgb <8 or symptomatic -iron supplements 9. Hypocalcemia- discussed with hospitalist, ionized calcium low at 4.1, will add oral supplement 10. Dispo- goal to home 10-12-20 with family Allergies Coded Allergies: No Known Allergies (Verified , 09/18/20) Vital Signs Vital Signs Date Time Temp Pulse Resp B/P (MAP) Pulse Ox O2 Delivery O2 Flow Rate FiO2 10/10/20 09:05 66 111/67 10/10/20 06:10 98.4 18 97 Room Air Current Medications Current Medications Current Medications Medications (Trade) Dose Ordered Sig/Krystal Route PRN Reason Start Time Stop Time Status Last Admin Dose Admin Acetaminophen (Tylenol Tab) 650 mg Q4HP PRN PO fever/MILD PAIN (PS 1-4) 10/05/20 15:15 10/10/20 00:25 Aspirin (Ecotrin) 81 mg DAILY PO 10/06/20 09:00 10/10/20 09:05 Bisacodyl (Dulcolax Suppository) 10 mg DAILYPRN PRN [place] CONSTIPATION 10/05/20 15:15 Calcium/Vitamin D (Oscal D) 500 mg BID PO 10/09/20 11:00 10/10/20 09:06 Calcium/Vitamin D (Oscal D) 1,000 mg DAILY PO 10/09/20 09:00 10/10/20 09:06 Docusate Sodium (Colace) 100 mg BID PO 10/05/20 21:00 10/09/20 20:32 Ferrous Gluconate (Fergon) 324 mg BID PO 10/05/20 21:00 10/10/20 09:05 Fluticasone Propionate (Flonase 0.05% Nasal [place]) 1 spray BID NARES 10/05/20 21:00 10/09/20 20:31 Latanoprost (Xalatan 0.005% Op Soln) 1 drop QHS OU 10/05/20 21:00 6/8/21 20:31 Magnesium Oxide (Mag-Ox) 400 mg DAILY PO 10/08/20 09:00 10/10/20 09:06 Metoprolol Tartrate (Lopressor) 12.5 mg BID PO 10/05/20 21:00 10/10/20 09:05 Multivitamins (Theragram-M) 1 tab DAILY PO 10/06/20 09:00 10/10/20 09:05 Pantoprazole Sodium (Protonix) 40 mg BID PO 10/05/20 21:00 10/10/20 09:05 Polyethylene Glycol (Miralax) 1 pkt DAILY PRN PO CONSTIPATION 10/05/20 15:15 Potassium Chloride (Micro-K Extencaps) 20 meq DAILY PO 10/09/20 09:00 10/10/20 09:06 Simvastatin (Zocor) 10 mg QHS PO 10/05/20 21:00 10/09/20 20:32 Sucralfate (Carafate) 1 gm AC PO 10/05/20 17:30 10/10/20 11:36 Tamsulosin HCl (Flomax) 0.8 mg QHS PO 10/05/20 21:00 10/09/20 20:32 SUDARSHAN SINGH MD Oct 10, 2020 12:41
--- NOTE | 2020-10-10 12:43 | IPNPDOC ---
PM&R Progress Note DATE OF SERVICE: Oct 10, 2020 Shipping Room Helper Progress Note Subjective: Patient stating he has had leg swelling for years and was not given any advice on how to manage it. He is agreeable to a trial of lasix and was educated on importance of fluid restriction given clinical signs of CHF. REVIEW OF SYSTEMS: The following is a completed review of systems and has been reviewed. Review of systems otherwise unremarkable. PAIN: Patient self reports no pain EYES:No recent vision changes EARS, NOSE, & THROAT: No throat pain, or dysphagia, or rhinorrhea CARDIOVASCULAR: Denies chest pain or palpitations PULMONARY: Denies shortness of breath GASTROINTESTINAL: Denies constipation/diarrhea GENITOURINARY: denies dysuria MUSCULOSKELETAL: generalized weakness NEUROLOGICAL: +confused HEMATOLOGICAL: +anemia SKIN: PVD skin changes PSYCHIATRIC: +confused All other review of systems found to be negative. PHYSICAL EXAMINATION: VITAL SIGNS: Please see below. GENERAL: Pleasant and cooperative. No acute distress. HEENT: PERRL. Extraocular movements intact. Clear conjunctiva CARDIOVASCULAR: Irregular rate and rhythm. No murmurs, rubs, or gallops LUNGS: Clear to auscultation bilaterally. No wheezes. No rhonchi ABDOMEN: Soft, nontender, nondistended. Positive bowel sounds. Normal active bowel sounds NEUROLOGICAL: Alert and oriented times three. +tangential, Cranial nerves II through XII grossly intact. Sensation grossly intact EXTREMITIES: 5\5 strength bilateral upper extremities. 5\5 strength right lower extremity.5/5 strength in left lower extremity. +bilat LE edema SKIN: +hyperpigmentation of bilat calves and feet, pedal pulses intact ASSESSMENT:84-year-old M with past medical history of afib on eliquis who presents status post GI bleed with NSTEMI and new weakness and confusion PLAN: 1. REhab- PT/OT advance mobility and ADLs, strengthen/stretch/maintain ROM all 4 limbs, ambulating with RW- room privileges -SYNTHETIC FILAMENT EXTRUDER for cog 2. Neuro- persistent confusion, unclear if this is baseline, will monitor and refer to neurology outpatient for dementia work-up 3. Cardiac- Afib with GI bleed- eliquis on hold until cleared by cardiology to restart, c/u metoprolol -s/p NSTEMI, monitor for chest pain, c/u ASA, f/u Dr. Slezka -HLD- c/u statin -recent ECHO + grade 1 diastolic dysfunction likely chronic diastolic CHF, now with worsening LE edema, will start lasix, c/u fluid restriction and daily weights, f/u cardiology on d/c 4. Resp- monitor for infection 5. GI- s/p recent colonoscopy with polyp removal complicated by Lower GI bleed, EGD on 10-03-20 showing esophagitis -c/u ppi and carafate -f/u surgery on d/c 6. - bph c/u flomax 7. Pain- tylenol prn 8. Heme- s/p 2 units of prbcs for blood loss anemia, transfuse if hgb <8 or symptomatic -iron supplements 9. Hypocalcemia- discussed with hospitalist, ionized calcium low at 4.1, c/u oral supplement 10. Dispo- goal to home 10-12-20 with family Allergies Coded Allergies: No Known Allergies (Verified , 09/18/20) Vital Signs Vital Signs Date Time Temp Pulse Resp B/P (MAP) Pulse Ox O2 Delivery O2 Flow Rate FiO2 10/10/20 09:05 66 111/67 10/10/20 06:10 98.4 18 97 Room Air Current Medications Current Medications Current Medications Medications (Trade) Dose Ordered Sig/Krystal Route PRN Reason Start Time Stop Time Status Last Admin Dose Admin Acetaminophen (Tylenol Tab) 650 mg Q4HP PRN PO fever/MILD PAIN (PS 1-4) 10/05/20 15:15 10/10/20 00:25 Aspirin (Ecotrin) 81 mg DAILY PO 10/06/20 09:00 10/10/20 09:05 Bisacodyl (Dulcolax Suppository) 10 mg DAILYPRN PRN [place] CONSTIPATION 10/05/20 15:15 Calcium/Vitamin D (Oscal D) 500 mg BID PO 10/09/20 11:00 10/10/20 09:06 Calcium/Vitamin D (Oscal D) 1,000 mg DAILY PO 10/09/20 09:00 10/10/20 09:06 Docusate Sodium (Colace) 100 mg BID PO 10/05/20 21:00 10/09/20 20:32 Ferrous Gluconate (Fergon) 324 mg BID PO 10/05/20 21:00 10/10/20 09:05 Fluticasone Propionate (Flonase 0.05% Nasal [place]) 1 spray BID NARES 10/05/20 21:00 10/09/20 20:31 Latanoprost (Xalatan 0.005% Op Soln) 1 drop QHS OU 10/05/20 21:00 10/09/20 20:31 Magnesium Oxide (Mag-Ox) 400 mg DAILY PO 10/08/20 09:00 10/10/20 09:06 Metoprolol Tartrate (Lopressor) 12.5 mg BID PO 10/05/20 21:00 10/10/20 09:05 Multivitamins (Theragram-M) 1 tab DAILY PO 10/06/20 09:00 10/10/20 09:05 Pantoprazole Sodium (Protonix) 40 mg BID PO 10/05/20 21:00 10/10/20 09:05 Polyethylene Glycol (Miralax) 1 pkt DAILY PRN PO CONSTIPATION 10/05/20 15:15 Potassium Chloride (Micro-K Extencaps) 20 meq DAILY PO 10/09/20 09:00 10/10/20 09:06 Simvastatin (Zocor) 10 mg QHS PO 10/05/20 21:00 10/09/20 20:32 Sucralfate (Carafate) 1 gm AC PO 10/05/20 17:30 10/10/20 11:36 Tamsulosin HCl (Flomax) 0.8 mg QHS PO 10/05/20 21:00 10/09/20 20:32 SUDARSHAN SINGH MD Oct 10, 2020 12:43
[2020-10-10 14:00] VITALS: BP 123/61
[2020-10-10] MEDS ORDERED: FUROSEMIDE 40 MG TAB PO ONE (15:30)
[2020-10-10 20:00] VITALS: BP 105/66
[2020-10-10] MEDS: TAMSULOSIN 0.4 MG CAP PO SCH (20:34)
[2020-10-10] MEDS: SIMVASTATIN 10 MG TAB PO SCH (20:34)
[2020-10-10] MEDS: LATANOPROST 0.005% OPHTH SOLN 2.5 ML OU SCH (20:35)
[2020-10-11 06:00] VITALS: BP 117/67
[2020-10-11] MEDS: DOCUSATE SODIUM 100MG CAPSULE PO SCH ×2 (09:00→20:14)
[2020-10-11] MEDS: REMEDY PHYTOPLEX Z-GUARD PASTE 113GM TUBE (FROM STOREROOM PRODUCT) TOP SCH ×3 (09:00→20:14)
[2020-10-11 09:04] VITALS: BP 125/58
[2020-10-11] MEDS: MULTIVITAMINS/MINERALS THERAP 1 TAB PO SCH (09:04)
[2020-10-11] MEDS: POTASSIUM CHLORIDE 10 MEQ SR TABLET PO SCH (09:05)
[2020-10-11] MEDS: PANTOPRAZOLE 40MG TAB (PROTONIX) PO SCH ×2 (09:05→20:13)
[2020-10-11] MEDS: FERROUS GLUCONATE 324 MG TAB PO SCH ×2 (09:05→20:13)
[2020-10-11] MEDS: METOPROLOL TART 12.5 MG PER 1/2 TAB PO SCH ×2 (09:05→20:14)
[2020-10-11] MEDS: MAGNESIUM OXIDE 400MG TAB (MAG-OX) PO SCH (09:05)
[2020-10-11] MEDS: SUCRALFATE 1 GM TAB PO SCH ×3 (09:05→17:18)
[2020-10-11] MEDS: CALCIUM/VITAMIN D 500 MG TAB PO SCH ×3 (09:05→20:13)
[2020-10-11] MEDS: ASPIRIN 81MG ENTERIC TABLET PO SCH (09:05)
[2020-10-11] MEDS: FUROSEMIDE 20 MG TAB PO SCH (09:06)
[2020-10-11] MEDS: FLUTICASONE PROP 0.05% NASAL SPRAY 16 GM (FLONASE) NARES SCH ×2 (09:07→20:14)
[2020-10-11 14:00] VITALS: BP 107/58
[2020-10-11 20:00] VITALS: BP 120/66
[2020-10-11] MEDS: TAMSULOSIN 0.4 MG CAP PO SCH (20:13)
[2020-10-11] MEDS: SIMVASTATIN 10 MG TAB PO SCH (20:13)
[2020-10-11] MEDS: LATANOPROST 0.005% OPHTH SOLN 2.5 ML OU SCH (20:14)
[2020-10-12 06:00] VITALS: BP 103/57
[2020-10-12 08:24] VITALS: BP 103/57
[2020-10-12] MEDS: METOPROLOL TART 12.5 MG PER 1/2 TAB PO SCH (08:24)
[2020-10-12] MEDS: MULTIVITAMINS/MINERALS THERAP 1 TAB PO SCH (08:41)
[2020-10-12] MEDS: MAGNESIUM OXIDE 400MG TAB (MAG-OX) PO SCH (08:41)
[2020-10-12] MEDS: SUCRALFATE 1 GM TAB PO SCH ×2 (08:42→12:16)
[2020-10-12] MEDS: PANTOPRAZOLE 40MG TAB (PROTONIX) PO SCH (08:42)
[2020-10-12] MEDS: POTASSIUM CHLORIDE 10 MEQ SR TABLET PO SCH (08:42)
[2020-10-12] MEDS: DOCUSATE SODIUM 100MG CAPSULE PO SCH (08:42)
[2020-10-12] MEDS: FUROSEMIDE 20 MG TAB PO SCH (08:42)
[2020-10-12] MEDS: ASPIRIN 81MG ENTERIC TABLET PO SCH (08:42)
[2020-10-12] MEDS: FERROUS GLUCONATE 324 MG TAB PO SCH (08:42)
[2020-10-12] MEDS: CALCIUM/VITAMIN D 500 MG TAB PO SCH ×2 (08:44)
[2020-10-12] MEDS: REMEDY PHYTOPLEX Z-GUARD PASTE 113GM TUBE (FROM STOREROOM PRODUCT) TOP SCH (08:46)
[2020-10-12] MEDS: FLUTICASONE PROP 0.05% NASAL SPRAY 16 GM (FLONASE) NARES SCH (08:46)
[2020-10-12] MEDS ORDERED: ASPI-551 PO (11:23)
[2020-10-12] MEDS ORDERED: FLOM0.4C39 PO (11:23)
[2020-10-12] MEDS ORDERED: FURO20TA2 PO (11:23)
[2020-10-12] MEDS ORDERED: SIMV10TA21 PO (11:23)
[2020-10-12] MEDS ORDERED: MAGN400T2 PO (11:23)
[2020-10-12] MEDS ORDERED: FERR32TA PO (11:23)
[2020-10-12] MEDS ORDERED: FLUTISP NARES (11:24)
[2020-10-12] MEDS ORDERED: PANT40TA29 PO (11:24)
[2020-10-12] MEDS ORDERED: KLOR10TA76 PO (11:24)
[2020-10-12] MEDS ORDERED: SUCR1TA PO (11:24)
[2020-10-12] MEDS ORDERED: METO1TAB87 PO (11:24)
[2020-10-12] MEDS ORDERED: CALCD50TA PO (11:24)
--- NOTE | 2020-10-12 11:41 | IPNPDOC ---
PM&R Progress Note DATE OF SERVICE: Oct 11, 2020 Composite Engineer Progress Note Subjective: Patient states he was up all night urinating after receiving lasix, but is pleased his legs are less swollen. REVIEW OF SYSTEMS: The following is a completed review of systems and has been reviewed. Review of systems otherwise unremarkable. PAIN: Patient self reports no pain EYES:No recent vision changes EARS, NOSE, & THROAT: No throat pain, or dysphagia, or rhinorrhea CARDIOVASCULAR: Denies chest pain or palpitations PULMONARY: Denies shortness of breath GASTROINTESTINAL: Denies constipation/diarrhea GENITOURINARY: denies dysuria MUSCULOSKELETAL: generalized weakness NEUROLOGICAL: +confused HEMATOLOGICAL: +anemia SKIN: PVD skin changes PSYCHIATRIC: +confused All other review of systems found to be negative. PHYSICAL EXAMINATION: VITAL SIGNS: Please see below. GENERAL: Pleasant and cooperative. No acute distress. HEENT: PERRL. Extraocular movements intact. Clear conjunctiva CARDIOVASCULAR: Irregular rate and rhythm. No murmurs, rubs, or gallops LUNGS: Clear to auscultation bilaterally. No wheezes. No rhonchi ABDOMEN: Soft, nontender, nondistended. Positive bowel sounds. Normal active bowel sounds NEUROLOGICAL: Alert and oriented times three. +tangential, Cranial nerves II through XII grossly intact. Sensation grossly intact EXTREMITIES: 5\5 strength bilateral upper extremities. 5\5 strength right lower extremity.5/5 strength in left lower extremity. +bilat LE edema (improved) SKIN: +hyperpigmentation of bilat calves and feet, pedal pulses intact ASSESSMENT:84-year-old M with past medical history of afib on eliquis who presents status post GI bleed with NSTEMI and new weakness and confusion PLAN: 1. REhab- PT/OT advance mobility and ADLs, strengthen/stretch/maintain ROM all 4 limbs, ambulating with RW- room privileges -TIRE FABRICATOR for cog 2. Neuro- persistent confusion, unclear if this is baseline, will monitor and refer to neurology outpatient for dementia work-up 3. Cardiac- Afib with GI bleed- eliquis on hold until cleared by cardiology to restart, c/u metoprolol -s/p NSTEMI, monitor for chest pain, c/u ASA, f/u Dr. Palomares -HLD- c/u statin -recent ECHO + grade 1 diastolic dysfunction likely chronic diastolic CHF, LE edema improved today, c/u fluid restriction and daily weights, f/u cardiology on d/c 4. Resp- monitor for infection 5. GI- s/p recent colonoscopy with polyp removal complicated by Lower GI bleed, EGD on 10-03-20 showing esophagitis -c/u ppi and carafate -f/u surgery on d/c 6. - bph c/u flomax 7. Pain- tylenol prn 8. Heme- s/p 2 units of prbcs for blood loss anemia, transfuse if hgb <8 or symptomatic -iron supplements 9. Hypocalcemia- discussed with hospitalist, ionized calcium low at 4.1, c/u oral supplement 10. Dispo- goal to home 10-12-20 with family Allergies Coded Allergies: No Known Allergies (Verified , 09/18/20) Vital Signs Vital Signs Date Time Temp Pulse Resp B/P (MAP) Pulse Ox O2 Delivery O2 Flow Rate FiO2 10/12/20 08:24 74 103/57 10/12/20 06:00 98.0 18 97 Room Air Current Medications Current Medications Current Medications Medications (Trade) Dose Ordered Sig/Krystal Route PRN Reason Start Time Stop Time Status Last Admin Dose Admin Acetaminophen (Tylenol Tab) 650 mg Q4HP PRN PO fever/MILD PAIN (PS 1-4) 10/05/20 15:15 10/10/20 00:25 Aspirin (Ecotrin) 81 mg DAILY PO 10/06/20 09:00 10/12/20 08:42 Bisacodyl (Dulcolax Suppository) 10 mg DAILYPRN PRN [place] CONSTIPATION 10/05/20 15:15 Calcium/Vitamin D (Oscal D) 500 mg BID PO 10/09/20 11:00 10/12/20 08:44 Calcium/Vitamin D (Oscal D) 1,000 mg DAILY PO 10/09/20 09:00 10/12/20 08:44 Docusate Sodium (Colace) 100 mg BID PO 10/05/20 21:00 10/09/20 20:32 Ferrous Gluconate (Fergon) 324 mg BID PO 10/05/20 21:00 10/12/20 08:42 Fluticasone Propionate (Flonase 0.05% Nasal [place]) 1 spray BID NARES 10/05/20 21:00 10/11/20 20:14 Furosemide (Lasix) 20 mg DAILY PO 10/11/20 09:00 10/12/20 08:42 Latanoprost (Xalatan 0.005% Op Soln) 1 drop QHS OU 10/05/20 21:00 10/11/20 20:14 Magnesium Oxide (Mag-Ox) 400 mg DAILY PO 10/08/20 09:00 10/12/20 08:41 Metoprolol Tartrate (Lopressor) 12.5 mg BID PO 10/05/20 21:00 10/11/20 20:14 Multivitamins (Theragram-M) 1 tab DAILY PO 10/06/20 09:00 10/12/20 08:41 Pantoprazole Sodium (Protonix) 40 mg BID PO 10/05/20 21:00 10/12/20 08:42 Polyethylene Glycol (Miralax) 1 pkt DAILY PRN PO CONSTIPATION 10/05/20 15:15 Potassium Chloride (Micro-K Extencaps) 20 meq DAILY PO 10/09/20 09:00 10/12/20 08:42 Simvastatin (Zocor) 10 mg QHS PO 10/05/20 21:00 10/11/20 20:13 Sucralfate (Carafate) 1 gm AC PO 10/05/20 17:30 10/12/20 08:42 Tamsulosin HCl (Flomax) 0.8 mg QHS PO 10/05/20 21:00 10/11/20 20:13 SUDARSHAN SINGH MD Oct 12, 2020 11:41
--- NOTE | 2020-10-12 12:07 | PMRDS ---
NAME: ESTRELLA FIERRO [facility] WT ID#: [id number] JOB: [id number] MICHAEL: 10/05/2020 ACCT: [id number] DOCTOR: SUDARSHAN SINGH MD PMR DISCHARGE SUMMARY DATE OF ADMISSION: 10/05/2020 DATE OF DISCHARGE: 10/12/2020 CHIEF COMPLAINT/DISCHARGE DIAGNOSIS: Weakness and confusion in the setting of a GI bleed. HISTORY OF PRESENT ILLNESS: This is an 84-year-old male with a past medical history of atrial fibrillation, hyperlipidemia, hypertension, BPH, glaucoma, who presented to [facility] ED on 10/02/2020 with weakness and confusion with bright-red blood per rectum x3 days following a colonoscopy procedure where he had polyps removed. He was found to have acute blood loss anemia with a hemoglobin of 7.3 and was hypotensive. He received 2 units of PRBCs, his beta audrey was held as well as his Eliquis. Additionally, he had an NSTEMI but per Cardiology was not a candidate for stenting while having an active GI bleed, and the decision was made for patient to be admitted to [facility]. He developed coffee-ground emesis and underwent an emergency EGD on 10/03/2020 where he was found to have signs of esophagitis. Dr. Cesar recommended patient's Eliquis be held for a period of time to allow for polyp removal sites to heal. Patient remained confused, was noted to have deficits in mobility and ADLs and deemed medically appropriate for discharge to ARU on 10/05/2020. PAST MEDICAL HISTORY: As per HPI. HOSPITAL COURSE: Patient was admitted and enrolled in a comprehensive PT/OT program. He received 24 hour nursing supervision and weekly team meetings were held to discuss his progress. Patient showed no further signs of GI bleed and his hemoglobin and hematocrit remained stable. He was treated with PPIs and Carafate. Patient had no complaints of chest pain, however did have lower extremity edema that gradually got worse and did improve quickly with initiation of Lasix. Patient was educated on the importance of taking Lasix with his Grade 1 diastolic dysfunction and to maintain a fluid restriction. He was advised to follow-up with a geriatric nurse practitioner upon discharge to discuss using new medications and for further cardiac workup. He made steady gains in therapy, was noted to have some cognitive impairments for which a speech evaluation was ordered. The patient, however was deemed safe to return home with family. DISCHARGE MEDICATIONS: As per instructions. FUNCTIONAL HISTORY ON DISCHARGE: The patient was modified independent for dressing, ambulation, toileting and bathing. Thank you for this referral.
[2020-10-13] MEDS ORDERED: REST0.05 OP (21:32)
== END 2020-10-12 13:47 | disposition home health service (06) | DRG 947 ==
LOC: M PM&R 16:00
PROVIDERS: ADMIT Physical Medicine & Rehabilitation; ATTEND Physical Medicine & Rehabilitation
DX: R53.1 Weakness (principal); I21.4 Non-ST elevation (NSTEMI) myocardial infarction; D62 Acute posthemorrhagic anemia; R41.0 Disorientation, unspecified; I48.91 Unspecified atrial fibrillation; E78.5 Hyperlipidemia, unspecified; I10 Essential (primary) hypertension; R60.0 Localized edema; N40.0 Benign prostatic hyperplasia without lower urinary tract symptoms; I25.10 Atherosclerotic heart disease of native coronary artery without angina pectoris; H40.9 Unspecified glaucoma; E83.51 Hypocalcemia; R41.89 Other symptoms and signs involving cognitive functions and awareness; K21.00 Gastro-esophageal reflux disease with esophagitis, without bleeding; Z74.09 Other reduced mobility; Z74.1 Need for assistance with personal care; Z86.010 Personal history of colon polyps; Z79.82 Long term (current) use of aspirin; Z79.899 Other long term (current) drug therapy

== ENCOUNTER 2020-10-13 21:21 | Emergency (ER) | payer MEDICARE, OTHER ==
[~2020-10-13] VITALS: Ht 182.9 cm; Wt 74.9 kg
[~2020-10-13 21:21] MED LIST changes: +CALCD50TA PO; +FLUTISP NARES; +FURO20TA2 PO; +KLOR10TA76 PO; +MAGN400T2 PO; +METO1TAB87 PO; +SUCR1TA PO
[2020-10-13] MEDS ORDERED: REST0.05 OP (21:32)
--- NOTE | 2020-10-13 22:10 | REPVR ---
PROCEDURE INFORMATION: Exam: CT Head Without Contrast Exam date and time: 10/13/2020 9:52 PM Age: 84 years old Clinical indication: Other: Fall/dizzy TECHNIQUE: Imaging protocol: Computed tomography of the head without contrast. Radiation optimization: All CT scans at this facility use at least one of these dose optimization techniques: automated exposure control; mA and/or kV adjustment per patient size (includes targeted exams where dose is matched to clinical indication); or iterative reconstruction. COMPARISON: CT Head without contrast 10/02/2020 5:19 PM FINDINGS: Brain: There is no evidence of intracranial bleed. There is no evidence of mass effect. There is low CSF density at the right and left external capsule region consistent with chronic ischemic changes. Cerebral ventricles: Normal ventricles. Paranasal sinuses: Clear paranasal sinuses. Mastoid air cells: Clear mastoid air cells. Bones/joints: There is no evidence of fracture. Soft tissues: There is no evidence of soft tissue swelling. IMPRESSION: 1. No evidence of fracture. 2. No evidence of intracranial bleed. Electronically signed by: Avi Marti On 10/13/2020 22:09:57 PM
--- NOTE | 2020-10-13 22:19 | REPVR ---
PROCEDURE INFORMATION: Exam: CT Cervical Spine Without Contrast Exam date and time: 10/13/2020 9:52 PM Age: 84 years old Clinical indication: Other: Fall/dizzy TECHNIQUE: Imaging protocol: Computed tomography images of the cervical spine without contrast. Radiation optimization: All CT scans at this facility use at least one of these dose optimization techniques: automated exposure control; mA and/or kV adjustment per patient size (includes targeted exams where dose is matched to clinical indication); or iterative reconstruction. COMPARISON: No relevant prior studies available. FINDINGS: Vertebrae: There is no evidence of fracture. The dens appears intact and the lateral masses of C1 appear symmetric. C4-C5: There is severe narrowing of the C4-C5 disc space and the C5-C6 disc space with large posterior osteophyte formation. There is severe left C5 and C6 neural foraminal narrowing secondary to osteophyte formation Thyroid: There is a 1.8 cm low-density nodule of the right lobe of the thyroid and recommend thyroid ultrasound for further evaluation of this. Lungs: The apical portions of the lung appear clear. IMPRESSION: 1. No evidence of fracture. 2. 1.8 cm nodule right lobe of the thyroid and recommend thyroid ultrasound Electronically signed by: Avi Marti On 10/13/2020 22:19:14 PM
[2020-10-13 23:26] LABS: BASO % 0.2 % (0.0-1.0); EOS # 0.1 10^3/uL (0.0-0.5); EOS % 1.7 % (0.0-3.0); HEMATOCRIT 27.4 % (42.0-52.0); HEMOGLOBIN 8.8 g/dl (13.5-17.5); LYMPH # 0.7 10^3/uL (1.5-5.0); LYMPH % 8.3 % (24.0-44.0); MEAN CORPUSCULAR HEMOGLOBIN 31.2 pg (27.0-33.0); MEAN CORPUSCULAR HGB CONC 32.1 g/dl (32.0-36.5); MEAN CORPUSCULAR VOLUME 97.2 fl (80.0-96.0); MONO # 0.7 10^3/uL (0.0-0.8); MONO % 8.5 % (2.0-8.0); NEUTROPHILS # 6.5 10^3/uL (1.5-8.5); NEUTROPHILS % 80.6 % (36.0-66.0); PLATELET COUNT, AUTOMATED 313 10^3/uL (150-450); RED BLOOD COUNT 2.82 10^6/uL (4.30-6.10); WHITE BLOOD COUNT 8.1 10^3/uL (4.0-10.0)
[2020-10-13 23:42] LABS: BLOOD UREA NITROGEN 17 MG/DL (7-18); CALCIUM LEVEL 7.7 MG/DL (8.8-10.2); CARBON DIOXIDE LEVEL 28 MEQ/L (21-32); CHLORIDE LEVEL 105 MEQ/L (98-107); CK-MB VALUE MASS 1.4 NG/ML (<3.6); CPK CREATINE PHOSPHOKINASE 66 U/L (39-308); CREATININE FOR GFR 0.75 MG/DL (0.70-1.30); GLOMERULAR FILTRATION RATE > 60.0 (>35); GLUCOSE, FASTING 118 MG/DL (70-100); MB/CK RELATIVE INDEX 2.12 (< OR =4); POTASSIUM SERUM 4.1 MEQ/L (3.5-5.1); SODIUM LEVEL 139 MEQ/L (136-145); TROPONIN I 0.09 NG/ML (< 0.10)
[2020-10-14 01:15] VITALS: BP 111/63
--- NOTE | 2020-10-14 07:13 | ED PDOC ---
Post-Departure Follow-Up radiology report faxed to Chelsey Roberts MD Oct 14, 2020 07:13
--- NOTE | 2020-10-15 16:44 | ECGEPIP ---
[facility] - ED Test Date: 2020-10-13 Pat Name: ESTRELLA FIERRO Department: Room: - Gender: Male Emergency Doctor: JUAN : 1935 Requested By: CINTHYA Kahn Order Number: [id number] Reading MD: Chelsey King Measurements Intervals [place] Rate: 75 P: 11 SC: 208 QRS: -46 QRSD: 90 T: 70 QT: 402 QTc: 448 Interpretive Statements Normal sinus rhythm Left axis deviation Septal infarct , age undetermined Electronically Signed on 10-15-2020 16:44:43 EDT by Chelsey King
== END 2020-10-14 01:19 | disposition home or self-care (01) ==
LOC: M ED 21:21
DX: R42 Dizziness and giddiness (principal); W01.198A Fall on same level from slipping, tripping and stumbling with subsequent striking against other object, initial encounter; Y92.89 Other specified places as the place of occurrence of the external cause; E04.1 Nontoxic single thyroid nodule; I25.10 Atherosclerotic heart disease of native coronary artery without angina pectoris; I25.2 Old myocardial infarction; K92.2 Gastrointestinal hemorrhage, unspecified; Z99.89 Dependence on other enabling machines and devices; Z79.899 Other long term (current) drug therapy; Z79.82 Long term (current) use of aspirin

== ENCOUNTER 2021-01-16 06:29 | Emergency (ER) | payer MEDICARE, OTHER ==
[~2021-01-16] VITALS: Ht 180.3 cm; Wt 76.7 kg
[~2021-01-16 06:29] MED LIST changes: +DOK1CAP4 PO; -DOK1CAP7 PO; -KLOR10TA76 PO; +POTA-136 PO; +REST0.05 OP
[2021-01-16 08:51] LABS: HEMATOCRIT 34.4 % (42.0-52.0); HEMOGLOBIN 11.3 g/dl (13.5-17.5); MEAN CORPUSCULAR HEMOGLOBIN 30.9 pg (27.0-33.0); MEAN CORPUSCULAR HGB CONC 32.8 g/dl (32.0-36.5); PLATELET COUNT, AUTOMATED 274 10^3/uL (150-450); RED BLOOD COUNT 3.66 10^6/uL (4.30-6.10); WHITE BLOOD COUNT 7.4 10^3/uL (4.0-10.0)
[2021-01-16 09:19] LABS: BLOOD UREA NITROGEN 16 MG/DL (7-18); CALCIUM LEVEL 8.2 MG/DL (8.8-10.2); CARBON DIOXIDE LEVEL 27 MEQ/L (21-32); CHLORIDE LEVEL 103 MEQ/L (98-107); CREATININE FOR GFR 0.76 MG/DL (0.70-1.30); GLOMERULAR FILTRATION RATE > 60.0 (>35); GLUCOSE, FASTING 114 MG/DL (70-100); POTASSIUM SERUM 4.1 MEQ/L (3.5-5.1); SODIUM LEVEL 136 MEQ/L (136-145)
[2021-01-16 09:35] LABS: INR 1.45; PROTHROMBIN TIME 18.1 SECONDS (12.7-14.5)
[2021-01-16 09:36] LABS: PARTIAL THROMBOPLASTIN TIME 36.7 SECONDS (25.9-37.0)
[2021-01-16 11:24] VITALS: BP 143/81
--- NOTE | 2021-01-16 19:06 | ECGEPIP ---
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 Order Number: [id number] Reading MD: Chelsey King Measurements Intervals [place] Rate: 77 P: 4 SD: 224 QRS: -42 QRSD: 98 T: 66 QT: 406 QTc: 459 Interpretive Statements Sinus rhythm with 1st degree AV block Left axis deviation Septal infarct , age undetermined similar 10/13/20 Electronically Signed on 01-16-2021 19:06:33 EDT by Chelsey King
== END 2021-01-16 12:20 | disposition home or self-care (01) ==
LOC: M ED 06:29
DX: K91.840 Postprocedural hemorrhage of a digestive system organ or structure following a digestive system procedure (principal); D68.32 Hemorrhagic disorder due to extrinsic circulating anticoagulants; I48.91 Unspecified atrial fibrillation; I10 Essential (primary) hypertension; Z85.51 Personal history of malignant neoplasm of bladder; Z79.899 Other long term (current) drug therapy; Z79.01 Long term (current) use of anticoagulants; Z79.82 Long term (current) use of aspirin

== ENCOUNTER → 2021-08-07 | Outpatient (REF) | payer MEDICARE, OTHER ==
[2021-08-07 13:42] LABS: PERCENT SATURATION 24.4 % (19.7-50.0)
== END ==
LOC: M LAB REF 12:31
PROVIDERS: ATTEND Family Medicine
DX: D64.9 Anemia, unspecified (principal)

== ENCOUNTER → 2022-10-01 | Outpatient (REF) | payer MEDICARE, OTHER ==
[~2022-10-01] MED LIST changes: +FLUT50SP17; +FLUT50SP17 NARES; -FLUTISP; -FLUTISP NARES
[2022-10-01 17:30] LABS: FOLATE > 24.0 NG/ML (>5.4); VITAMIN B12 LEVEL 480 PG/ML (211-911)
== END ==
LOC: M LAB REF 16:23
PROVIDERS: ATTEND Family Medicine
DX: D64.9 Anemia, unspecified (principal)

== ENCOUNTER → 2024-03-17 | Outpatient (REF) | payer MEDICARE, OTHER ==
[~2024-03-17] MED LIST changes: -FLUT50SP17; -FLUT50SP17 NARES; +FLUTISP; +FLUTISP NARES; -MIRA1POW3 PO; +MIRA33506 PO
[2024-03-17 14:18] LABS: PERCENT SATURATION 10.9 % (19.7-50.0)
[2024-03-17 14:22] LABS: FERRITIN 49.6 NG/ML (10.5-307.3)
== END ==
LOC: M LAB REF 13:40
PROVIDERS: ATTEND Family Medicine
DX: I50.42 Chronic combined systolic (congestive) and diastolic (congestive) heart failure (principal); D64.9 Anemia, unspecified

== ENCOUNTER 2024-03-21 12:05 | Inpatient (IN) | payer MEDICARE, OTHER ==
[~2024-03-21] VITALS: Ht 182.9 cm; Wt 61.1 kg
[~2024-03-21 12:05] MED LIST changes: -REST0.05 OP; +REST0.05 OU
[2024-03-21 12:38] LABS: BASO % 0.1 % (0.0-1.0); HEMATOCRIT 32.6 % (42.0-52.0); HEMOGLOBIN 11.1 g/dl (13.5-17.5); LYMPH # 1.1 10^3/uL (1.5-5.0); LYMPH % 6.7 % (24.0-44.0); MEAN CORPUSCULAR HEMOGLOBIN 31.7 pg (27.0-33.0); MEAN CORPUSCULAR VOLUME 93.1 fl (80.0-96.0); MONO # 1.8 10^3/uL (0.0-0.8); MONO % 11.1 % (2.0-8.0); NEUTROPHILS # 13.2 10^3/uL (1.5-8.5); NEUTROPHILS % 81.4 % (36.0-66.0); PLATELET COUNT, AUTOMATED 325 10^3/uL (150-450); WHITE BLOOD COUNT 16.2 10^3/uL (4.0-10.0)
[2024-03-21] MEDS: NS 1,000 ML IV SCH (12:52)
[2024-03-21 13:05] LABS: OSMOLALITY SERUM 256 MOSM/KG (280-301)
[2024-03-21 13:06] LABS: CK-MB VALUE MASS 7.9 NG/ML (<3.6)
[2024-03-21 13:08] LABS: CPK CREATINE PHOSPHOKINASE 154 U/L (46-171); MB/CK RELATIVE INDEX 5.12 (< OR =4)
[2024-03-21 13:10] LABS: THYROID STIMULATING HORMONE 4.062 uIU/ML (0.55-4.78)
[2024-03-21 13:11] LABS: FREE T4 1.45 NG/DL (0.89-1.76)
[2024-03-21 13:15] LABS: ALBUMIN 3.3 G/DL (3.2-5.2); ALKALINE PHOSPHATASE 71 U/L (40-129); ALT/SGPT 31 U/L (7.0-40); AST/SGOT 19 U/L (<34); BILIRUBIN,DIRECT 0.5 MG/DL (<0.4); BILIRUBIN,TOTAL 1.1 MG/DL (0.3-1.2); BLOOD UREA NITROGEN 22 MG/DL (9-23); CALCIUM LEVEL 8.2 MG/DL (8.3-10.6); CARBON DIOXIDE LEVEL 25 MMOL/L (20-31); CHLORIDE LEVEL 87 MMOL/L (98-107); CREATININE FOR GFR 0.76 MG/DL (0.70-1.30); GLOMERULAR FILTRATION RATE > 60.0 (>35); GLUCOSE, FASTING 161 MG/DL (74-106); POTASSIUM SERUM 4.8 MMOL/L (3.5-5.1); SODIUM LEVEL 118 MMOL/L (136-145); TOTAL PROTEIN 6.8 G/DL (5.7-8.2)
[2024-03-21 13:19] LABS: CREATININE,RANDOM URINE 106.9 MG/DL
[2024-03-21 14:12] LABS: CK-MB VALUE MASS 7.2 NG/ML (<3.6)
[2024-03-21 14:13] LABS: MB/CK RELATIVE INDEX 5.07 (< OR =4)
[2024-03-21] MEDS: FUROSEMIDE 40MG/4ML VIAL IV ONE ×2 (16:11→19:53)
[2024-03-21 16:17] LABS: BLOOD UREA NITROGEN 21 MG/DL (9-23); CALCIUM LEVEL 8.1 MG/DL (8.3-10.6); CARBON DIOXIDE LEVEL 25 MMOL/L (20-31); CHLORIDE LEVEL 87 MMOL/L (98-107); CREATININE FOR GFR 0.72 MG/DL (0.70-1.30); GLOMERULAR FILTRATION RATE > 60.0 (>35); GLUCOSE, FASTING 132 MG/DL (74-106); POTASSIUM SERUM 4.6 MMOL/L (3.5-5.1); SODIUM LEVEL 118 MMOL/L (136-145)
[2024-03-21] MEDS ORDERED: FERR324T21 PO (16:55)
[2024-03-21] MEDS ORDERED: TRAZ1TAB11 PO (16:55)
[2024-03-21] MEDS ORDERED: HOME MED LIST COMPLETE! XX SCH (16:55)
[2024-03-21] MEDS ORDERED: ASPI81TA26 PO (16:55)
[2024-03-21 17:00] LABS: OSMOLALITY SERUM 258 MOSM/KG (280-301)
[2024-03-21 17:40] VITALS: BP 133/80; TEMP 97.8; O2SAT 93
[2024-03-21] MEDS ORDERED: METOPROLOL TART 12.5 MG PER 1/2 TAB PO SCH (18:00)
[2024-03-21 18:22] LABS: HEMOGLOBIN 10.9 g/dl (13.5-17.5)
[2024-03-21 18:53] LABS: PROCALCITONIN 0.06 ng/ml
[2024-03-21 19:07] LABS: BLOOD UREA NITROGEN 21 MG/DL (9-23); CALCIUM LEVEL 8.2 MG/DL (8.3-10.6); CARBON DIOXIDE LEVEL 23 MMOL/L (20-31); CHLORIDE LEVEL 88 MMOL/L (98-107); CREATININE FOR GFR 0.72 MG/DL (0.70-1.30); GLOMERULAR FILTRATION RATE > 60.0 (>35); GLUCOSE, FASTING 131 MG/DL (74-106); POTASSIUM SERUM 4.1 MMOL/L (3.5-5.1); SODIUM LEVEL 118 MMOL/L (136-145)
[2024-03-21] MEDS: SIMVASTATIN 10 MG TAB PO SCH (19:53)
[2024-03-21] MEDS: LATANOPROST 0.005% OPHTH SOLN 2.5 ML OU SCH (19:53)
[2024-03-21] MEDS: TAMSULOSIN 0.4 MG CAP PO SCH (19:54)
[2024-03-21] MEDS: FERROUS GLUCONATE 324 MG TAB PO SCH (19:54)
[2024-03-21] MEDS: traZODone 50 MG TAB PO SCH (19:54)
[2024-03-21] MEDS: SPIRONOLACTONE 25 MG TAB PO SCH (19:54)
[2024-03-21] MEDS: APIXABAN 5 MG TAB (ELIQUIS) PO SCH (19:54)
[2024-03-21 20:08] VITALS: BP 141/89; TEMP 98.1; O2SAT 97
[2024-03-21 23:18] LABS: BLOOD UREA NITROGEN 20 MG/DL (9-23); CARBON DIOXIDE LEVEL 28 MMOL/L (20-31); CHLORIDE LEVEL 84 MMOL/L (98-107); CREATININE FOR GFR 0.78 MG/DL (0.70-1.30); GLOMERULAR FILTRATION RATE > 60.0 (>35); GLUCOSE, FASTING 146 MG/DL (74-106); POTASSIUM SERUM 3.4 MMOL/L (3.5-5.1); SODIUM LEVEL 118 MMOL/L (136-145)
[2024-03-21 23:30] VITALS: BP 120/63; TEMP 97.5; O2SAT 94
[2024-03-21] MEDS: METOPROLOL TART 12.5 MG PER 1/2 TAB PO SCH (23:35)
[2024-03-21] MEDS: POTASSIUM CHLORIDE 10MEQ SR TABLET PO ONE (23:35)
[2024-03-22] VITALS (9 sets, daily range): BP systolic 94–116; BP diastolic 56–76; TEMP 96.7–98.4; O2SAT 93–98
[2024-03-22 02:59] LABS: BLOOD UREA NITROGEN 20 MG/DL (9-23); CALCIUM LEVEL 8.1 MG/DL (8.3-10.6); CARBON DIOXIDE LEVEL 29 MMOL/L (20-31); CHLORIDE LEVEL 84 MMOL/L (98-107); CREATININE FOR GFR 0.82 MG/DL (0.70-1.30); GLOMERULAR FILTRATION RATE > 60.0 (>35); GLUCOSE, FASTING 123 MG/DL (74-106); POTASSIUM SERUM 3.5 MMOL/L (3.5-5.1); SODIUM LEVEL 119 MMOL/L (136-145)
[2024-03-22 03:14] LABS: HEMATOCRIT 30.9 % (42.0-52.0); HEMOGLOBIN 11.1 g/dl (13.5-17.5)
[2024-03-22 06:40] LABS: BASO % 0.1 % (0.0-1.0); EOS % 0.1 % (0.0-3.0); HEMATOCRIT 31.3 % (42.0-52.0); HEMOGLOBIN 11.1 g/dl (13.5-17.5); LYMPH # 0.7 10^3/uL (1.5-5.0); LYMPH % 2.1 % (24.0-44.0); MEAN CORPUSCULAR HEMOGLOBIN 31.9 pg (27.0-33.0); MEAN CORPUSCULAR HGB CONC 35.5 g/dl (32.0-36.5); MEAN CORPUSCULAR VOLUME 89.9 fl (80.0-96.0); MONO # 1.5 10^3/uL (0.0-0.8); MONO % 4.5 % (2.0-8.0); NEUTROPHILS # 29.7 10^3/uL (1.5-8.5); NEUTROPHILS % 91.7 % (36.0-66.0); PLATELET COUNT, AUTOMATED 278 10^3/uL (150-450); RED BLOOD COUNT 3.48 10^6/uL (4.30-6.10)
[2024-03-22 06:42] LABS: WHITE BLOOD COUNT 32.4 10^3/uL (4.0-10.0)
[2024-03-22 07:01] LABS: BLOOD UREA NITROGEN 20 MG/DL (9-23); CALCIUM LEVEL 7.9 MG/DL (8.3-10.6); CARBON DIOXIDE LEVEL 25 MMOL/L (20-31); CHLORIDE LEVEL 86 MMOL/L (98-107); CREATININE FOR GFR 0.83 MG/DL (0.70-1.30); GLOMERULAR FILTRATION RATE > 60.0 (>35); GLUCOSE, FASTING 117 MG/DL (74-106); MAGNESIUM LEVEL 1.7 MG/DL (1.8-2.4); POTASSIUM SERUM 3.8 MMOL/L (3.5-5.1); SODIUM LEVEL 118 MMOL/L (136-145)
[2024-03-22 08:51] LABS: URIC ACID 4.5 MG/DL (3.7-9.2)
[2024-03-22] MEDS ORDERED: FUROSEMIDE 20MG/2ML VIAL IV SCH (09:00)
[2024-03-22] MEDS ORDERED: FUROSEMIDE 20 MG TAB PO SCH ×2 (09:00)
[2024-03-22] MEDS: CEFDINIR 300 MG CAP (OMNICEF) PO SCH (09:00)
[2024-03-22] MEDS: DOXYCYCLINE HYCLATE 100MG TABLET PO SCH (09:00)
[2024-03-22] MEDS: FUROSEMIDE 40MG/4ML VIAL IV SCH ×2 (09:29→16:32)
[2024-03-22] MEDS: MAGNESIUM OXIDE 400MG TAB (MAG-OX) PO SCH (09:30)
[2024-03-22] MEDS: ASPIRIN 81MG ENTERIC TABLET PO SCH (09:31)
[2024-03-22] MEDS: MULTIVITAMINS/MINERALS THERAP 1 TAB PO SCH (09:31)
[2024-03-22 10:42] LABS: BLOOD UREA NITROGEN 21 MG/DL (9-23); CALCIUM LEVEL 8.1 MG/DL (8.3-10.6); CARBON DIOXIDE LEVEL 29 MMOL/L (20-31); CHLORIDE LEVEL 86 MMOL/L (98-107); CREATININE FOR GFR 0.89 MG/DL (0.70-1.30); GLOMERULAR FILTRATION RATE > 60.0 (>35); GLUCOSE, FASTING 139 MG/DL (74-106); POTASSIUM SERUM 3.9 MMOL/L (3.5-5.1); SODIUM LEVEL 119 MMOL/L (136-145)
[2024-03-22 12:03] LABS: OSMOLALITY URINE 307 MOSM/KG (50-1400)
[2024-03-22 12:12] LABS: SODIUM,RANDOM URINE 74 MMOL/L
[2024-03-22 12:19] LABS: UREA NITROGEN RANDOM URINE 186 MG/DL
[2024-03-22] MEDS: MIDODRINE 5 MG TAB PO SCH (12:42)
[2024-03-22 14:03] LABS: BLOOD UREA NITROGEN 21 MG/DL (9-23); CALCIUM LEVEL 7.7 MG/DL (8.3-10.6); CARBON DIOXIDE LEVEL 28 MMOL/L (20-31); CHLORIDE LEVEL 87 MMOL/L (98-107); CREATININE FOR GFR 0.91 MG/DL (0.70-1.30); GLOMERULAR FILTRATION RATE > 60.0 (>35); GLUCOSE, FASTING 132 MG/DL (74-106); POTASSIUM SERUM 3.6 MMOL/L (3.5-5.1); SODIUM LEVEL 120 MMOL/L (136-145)
[2024-03-22] MEDS ORDERED: PROHANCE 279.3MG/ML 15ML VIAL As Ordered ONE (15:13)
[2024-03-22] MEDS ORDERED: PROHANCE 279.3MG/ML 5ML VIAL As Ordered ONE (15:13)
[2024-03-22] MEDS: DOXYCYCLINE HYCLATE 100MG TABLET PO ONE (16:33)
[2024-03-22] MEDS: CEFDINIR 300 MG CAP (OMNICEF) PO ONE (16:33)
[2024-03-22 18:52] LABS: BLOOD UREA NITROGEN 21 MG/DL (9-23); CALCIUM LEVEL 7.7 MG/DL (8.3-10.6); CARBON DIOXIDE LEVEL 28 MMOL/L (20-31); CHLORIDE LEVEL 87 MMOL/L (98-107); CREATININE FOR GFR 0.85 MG/DL (0.70-1.30); GLOMERULAR FILTRATION RATE > 60.0 (>35); GLUCOSE, FASTING 144 MG/DL (74-106); POTASSIUM SERUM 3.4 MMOL/L (3.5-5.1); SODIUM LEVEL 121 MMOL/L (136-145)
[2024-03-22] MEDS: POTASSIUM CHLORIDE 10MEQ SR TABLET PO SCH (20:35)
[2024-03-22] MEDS: POTASSIUM CHLORIDE 10MEQ SR TABLET PO ONE (21:32)
[2024-03-22 22:31] LABS: BLOOD UREA NITROGEN 21 MG/DL (9-23); CALCIUM LEVEL 7.6 MG/DL (8.3-10.6); CARBON DIOXIDE LEVEL 30 MMOL/L (20-31); CHLORIDE LEVEL 84 MMOL/L (98-107); CREATININE FOR GFR 0.91 MG/DL (0.70-1.30); GLOMERULAR FILTRATION RATE > 60.0 (>35); GLUCOSE, FASTING 133 MG/DL (74-106); POTASSIUM SERUM 3.2 MMOL/L (3.5-5.1); SODIUM LEVEL 120 MMOL/L (136-145)
[2024-03-23 03:31] VITALS: BP 110/70
[2024-03-23 04:03] VITALS: TEMP 98.2; O2SAT 94
[2024-03-23 05:55] LABS: BASO % 0.1 % (0.0-1.0); EOS % 0.1 % (0.0-3.0); HEMATOCRIT 29.2 % (42.0-52.0); HEMOGLOBIN 10.2 g/dl (13.5-17.5); LYMPH # 0.6 10^3/uL (1.5-5.0); LYMPH % 3.2 % (24.0-44.0); MEAN CORPUSCULAR HEMOGLOBIN 31.1 pg (27.0-33.0); MEAN CORPUSCULAR HGB CONC 34.9 g/dl (32.0-36.5); MONO # 1.2 10^3/uL (0.0-0.8); MONO % 6.2 % (2.0-8.0); NEUTROPHILS # 17.1 10^3/uL (1.5-8.5); NEUTROPHILS % 89.6 % (36.0-66.0); PLATELET COUNT, AUTOMATED 240 10^3/uL (150-450); RED BLOOD COUNT 3.28 10^6/uL (4.30-6.10)
[2024-03-23 06:17] LABS: BLOOD UREA NITROGEN 20 MG/DL (9-23); CALCIUM LEVEL 7.7 MG/DL (8.3-10.6); CARBON DIOXIDE LEVEL 30 MMOL/L (20-31); CHLORIDE LEVEL 86 MMOL/L (98-107); CREATININE FOR GFR 0.89 MG/DL (0.70-1.30); GLOMERULAR FILTRATION RATE > 60.0 (>35); GLUCOSE, FASTING 122 MG/DL (74-106); MAGNESIUM LEVEL 1.8 MG/DL (1.8-2.4); SODIUM LEVEL 122 MMOL/L (136-145)
[2024-03-23 07:39] VITALS: BP 110/62; TEMP 98.3; O2SAT 94
[2024-03-23] MEDS ORDERED: POTASSIUM CHLORIDE 10MEQ SR TABLET PO SCH ×2 (09:00)
[2024-03-23 11:51] VITALS: BP 111/61; TEMP 97.2; O2SAT 91; O2SAT 96
[2024-03-23 15:50] LABS: BLOOD UREA NITROGEN 20 MG/DL (9-23); CARBON DIOXIDE LEVEL 30 MMOL/L (20-31); CHLORIDE LEVEL 84 MMOL/L (98-107); CREATININE FOR GFR 0.89 MG/DL (0.70-1.30); GLOMERULAR FILTRATION RATE > 60.0 (>35); GLUCOSE, FASTING 121 MG/DL (74-106); POTASSIUM SERUM 3.3 MMOL/L (3.5-5.1); SODIUM LEVEL 123 MMOL/L (136-145)
[2024-03-23 16:08] VITALS: BP 113/57; TEMP 98.5; O2SAT 95
[2024-03-23] MEDS: PANTOPRAZOLE 40MG VIAL IV SCH (20:41)
[2024-03-23 20:58] VITALS: BP 116/62; TEMP 97.5; O2SAT 95
[2024-03-24] VITALS (7 sets, daily range): BP systolic 100–124; BP diastolic 52–69; TEMP 97.1–98; O2SAT 93–98
[2024-03-24 06:06] LABS: EOS % 0.4 % (0.0-3.0); HEMATOCRIT 29.8 % (42.0-52.0); HEMOGLOBIN 10.4 g/dl (13.5-17.5); LYMPH # 0.6 10^3/uL (1.5-5.0); LYMPH % 5.5 % (24.0-44.0); MEAN CORPUSCULAR HEMOGLOBIN 31.7 pg (27.0-33.0); MEAN CORPUSCULAR HGB CONC 34.9 g/dl (32.0-36.5); MEAN CORPUSCULAR VOLUME 90.9 fl (80.0-96.0); NEUTROPHILS # 9.6 10^3/uL (1.5-8.5); NEUTROPHILS % 84.5 % (36.0-66.0); PLATELET COUNT, AUTOMATED 245 10^3/uL (150-450); RED BLOOD COUNT 3.28 10^6/uL (4.30-6.10); WHITE BLOOD COUNT 11.3 10^3/uL (4.0-10.0)
[2024-03-24 06:25] LABS: BLOOD UREA NITROGEN 22 MG/DL (9-23); CALCIUM LEVEL 7.6 MG/DL (8.3-10.6); CARBON DIOXIDE LEVEL 32 MMOL/L (20-31); CHLORIDE LEVEL 88 MMOL/L (98-107); CREATININE FOR GFR 0.97 MG/DL (0.70-1.30); GLOMERULAR FILTRATION RATE > 60.0 (>35); GLUCOSE, FASTING 117 MG/DL (74-106); MAGNESIUM LEVEL 1.9 MG/DL (1.8-2.4); POTASSIUM SERUM 3.3 MMOL/L (3.5-5.1); SODIUM LEVEL 126 MMOL/L (136-145)
[2024-03-24] MEDS: POTASSIUM CHLORIDE 10MEQ SR TABLET PO ONE (10:27)
[2024-03-24] MEDS: METOPROLOL TART 12.5 MG PER 1/2 TAB PO SCH (21:00)
[2024-03-25] VITALS (7 sets, daily range): BP systolic 98–123; BP diastolic 54–72; TEMP 96.7–98.3; O2SAT 93–97
[2024-03-25 05:11] LABS: EOS # 0.1 10^3/uL (0.0-0.5); EOS % 1.6 % (0.0-3.0); HEMATOCRIT 30.9 % (42.0-52.0); HEMOGLOBIN 10.5 g/dl (13.5-17.5); LYMPH # 0.7 10^3/uL (1.5-5.0); LYMPH % 8.9 % (24.0-44.0); MEAN CORPUSCULAR HEMOGLOBIN 31.1 pg (27.0-33.0); MEAN CORPUSCULAR VOLUME 91.4 fl (80.0-96.0); MONO # 1.1 10^3/uL (0.0-0.8); NEUTROPHILS # 6.1 10^3/uL (1.5-8.5); NEUTROPHILS % 75.9 % (36.0-66.0); PLATELET COUNT, AUTOMATED 243 10^3/uL (150-450); RED BLOOD COUNT 3.38 10^6/uL (4.30-6.10); WHITE BLOOD COUNT 8.1 10^3/uL (4.0-10.0)
[2024-03-25 05:35] LABS: BLOOD UREA NITROGEN 17 MG/DL (9-23); CALCIUM LEVEL 7.3 MG/DL (8.3-10.6); CARBON DIOXIDE LEVEL 32 MMOL/L (20-31); CHLORIDE LEVEL 91 MMOL/L (98-107); GLOMERULAR FILTRATION RATE > 60.0 (>35); GLUCOSE, FASTING 109 MG/DL (74-106); MAGNESIUM LEVEL 1.9 MG/DL (1.8-2.4); POTASSIUM SERUM 3.4 MMOL/L (3.5-5.1); SODIUM LEVEL 127 MMOL/L (136-145)
[2024-03-25] MEDS: ASPIRIN 81MG CHEW TABLET PO SCH (08:24)
[2024-03-25] MEDS ORDERED: BARIUM SULFATE 700 MG TABLET (E-Z-DISK) As Ordered ONE (08:29)
[2024-03-25] MEDS ORDERED: E-Z-PAQUE 96% w/w SUSP 176GM BTL As Ordered ONE (08:29)
[2024-03-25] MEDS ORDERED: VARIBAR PUDDING 40% w/v 230ML TUBE As Ordered ONE (08:29)
[2024-03-25] MEDS ORDERED: VARIBAR NECTAR 40% w/v 240ML SUSP BTL As Ordered ONE (08:29)
[2024-03-25] MEDS: POTASSIUM CHLORIDE 10MEQ SR TABLET PO SCH (09:57)
[2024-03-25] MEDS: FUROSEMIDE 100MG/10ML VIAL IV ONE (15:47)
[2024-03-26] VITALS (8 sets, daily range): BP systolic 89–124; BP diastolic 57–72; TEMP 96.9–98.1; O2SAT 94–97
[2024-03-26 06:36] LABS: BASO % 0.1 % (0.0-1.0); EOS # 0.3 10^3/uL (0.0-0.5); EOS % 3.7 % (0.0-3.0); HEMATOCRIT 36.1 % (42.0-52.0); HEMOGLOBIN 12.1 g/dl (13.5-17.5); LYMPH % 11.6 % (24.0-44.0); MEAN CORPUSCULAR HEMOGLOBIN 31.3 pg (27.0-33.0); MEAN CORPUSCULAR HGB CONC 33.5 g/dl (32.0-36.5); MEAN CORPUSCULAR VOLUME 93.5 fl (80.0-96.0); MONO # 1.2 10^3/uL (0.0-0.8); MONO % 13.7 % (2.0-8.0); PLATELET COUNT, AUTOMATED 259 10^3/uL (150-450); RED BLOOD COUNT 3.86 10^6/uL (4.30-6.10); WHITE BLOOD COUNT 8.6 10^3/uL (4.0-10.0)
[2024-03-26 07:01] LABS: BLOOD UREA NITROGEN 16 MG/DL (9-23); CALCIUM LEVEL 8.1 MG/DL (8.3-10.6); CARBON DIOXIDE LEVEL 32 MMOL/L (20-31); CHLORIDE LEVEL 93 MMOL/L (98-107); CREATININE FOR GFR 0.86 MG/DL (0.70-1.30); GLOMERULAR FILTRATION RATE > 60.0 (>35); GLUCOSE, FASTING 118 MG/DL (74-106); POTASSIUM SERUM 3.7 MMOL/L (3.5-5.1); SODIUM LEVEL 130 MMOL/L (136-145)
[2024-03-26] MEDS: POTASSIUM CHLORIDE 10% LIQ 20MEQ/15ML UDC PO SCH (08:47)
[2024-03-26] MEDS: FUROSEMIDE 80 MG TAB PO SCH (11:13)
[2024-03-27] VITALS (7 sets, daily range): BP systolic 94–118; BP diastolic 56–63; TEMP 96.9–98.3; O2SAT 94–97
[2024-03-27 07:57] LABS: BASO % 0.1 % (0.0-1.0); EOS # 0.4 10^3/uL (0.0-0.5); EOS % 3.4 % (0.0-3.0); HEMATOCRIT 36.4 % (42.0-52.0); HEMOGLOBIN 12.3 g/dl (13.5-17.5); LYMPH # 1.1 10^3/uL (1.5-5.0); LYMPH % 10.8 % (24.0-44.0); MEAN CORPUSCULAR HEMOGLOBIN 31.4 pg (27.0-33.0); MEAN CORPUSCULAR HGB CONC 33.8 g/dl (32.0-36.5); MEAN CORPUSCULAR VOLUME 92.9 fl (80.0-96.0); MONO % 9.8 % (2.0-8.0); NEUTROPHILS # 7.8 10^3/uL (1.5-8.5); NEUTROPHILS % 75.3 % (36.0-66.0); PLATELET COUNT, AUTOMATED 270 10^3/uL (150-450); RED BLOOD COUNT 3.92 10^6/uL (4.30-6.10); WHITE BLOOD COUNT 10.3 10^3/uL (4.0-10.0)
[2024-03-27 08:32] LABS: BLOOD UREA NITROGEN 18 MG/DL (9-23); CARBON DIOXIDE LEVEL 33 MMOL/L (20-31); CHLORIDE LEVEL 94 MMOL/L (98-107); GLOMERULAR FILTRATION RATE > 60.0 (>35); GLUCOSE, FASTING 113 MG/DL (74-106); MAGNESIUM LEVEL 1.8 MG/DL (1.8-2.4); POTASSIUM SERUM 4.2 MMOL/L (3.5-5.1); SODIUM LEVEL 132 MMOL/L (136-145)
[2024-03-27] MEDS: DOCUSATE SODIUM 100MG CAPSULE PO SCH (12:21)
[2024-03-27] MEDS: SENNA 8.6 MG TAB (SENOKOT) PO PRN (16:11)
[2024-03-28 04:12] VITALS: BP 103/61; TEMP 98; O2SAT 97
[2024-03-28 05:39] LABS: BASO % 0.1 % (0.0-1.0); EOS # 0.2 10^3/uL (0.0-0.5); EOS % 2.2 % (0.0-3.0); HEMATOCRIT 35.9 % (42.0-52.0); HEMOGLOBIN 12.2 g/dl (13.5-17.5); LYMPH # 1.1 10^3/uL (1.5-5.0); LYMPH % 9.8 % (24.0-44.0); MEAN CORPUSCULAR HEMOGLOBIN 31.8 pg (27.0-33.0); MEAN CORPUSCULAR VOLUME 93.5 fl (80.0-96.0); MONO % 8.8 % (2.0-8.0); NEUTROPHILS # 8.7 10^3/uL (1.5-8.5); NEUTROPHILS % 78.4 % (36.0-66.0); PLATELET COUNT, AUTOMATED 292 10^3/uL (150-450); RED BLOOD COUNT 3.84 10^6/uL (4.30-6.10); WHITE BLOOD COUNT 11.1 10^3/uL (4.0-10.0)
[2024-03-28 06:03] LABS: BLOOD UREA NITROGEN 22 MG/DL (9-23); CALCIUM LEVEL 8.1 MG/DL (8.3-10.6); CARBON DIOXIDE LEVEL 33 MMOL/L (20-31); CHLORIDE LEVEL 92 MMOL/L (98-107); GLOMERULAR FILTRATION RATE > 60.0 (>35); GLUCOSE, FASTING 131 MG/DL (74-106); POTASSIUM SERUM 4.9 MMOL/L (3.5-5.1); SODIUM LEVEL 128 MMOL/L (136-145)
[2024-03-28 08:00] VITALS: BP 98/61; TEMP 97.5; O2SAT 96
[2024-03-28] MEDS ORDERED: FUROSEMIDE 80 MG TAB PO SCH (09:00)
[2024-03-28] MEDS ORDERED: SPIRONOLACTONE 25 MG TAB PO SCH (09:00)
[2024-03-28 11:38] VITALS: BP 109/55; TEMP 97.2; O2SAT 97
[2024-03-28] MEDS: MIRALAX *UNIT DOSE* 17GM PACKET PO SCH (11:49)
[2024-03-28 14:43] LABS: BLOOD UREA NITROGEN 23 MG/DL (9-23); CALCIUM LEVEL 8.2 MG/DL (8.3-10.6); CARBON DIOXIDE LEVEL 32 MMOL/L (20-31); CHLORIDE LEVEL 91 MMOL/L (98-107); CREATININE FOR GFR 1.06 MG/DL (0.70-1.30); GLOMERULAR FILTRATION RATE > 60.0 (>35); GLUCOSE, FASTING 180 MG/DL (74-106); POTASSIUM SERUM 4.9 MMOL/L (3.5-5.1); SODIUM LEVEL 127 MMOL/L (136-145)
[2024-03-28 16:00] VITALS: BP 97/60; TEMP 98; O2SAT 96
[2024-03-28] MEDS: TOLVAPTAN 7.5 MG HALF-TAB PO ONE (16:42)
[2024-03-28 19:53] VITALS: BP 101/52; TEMP 97.5; O2SAT 93
[2024-03-28 23:34] VITALS: BP 101/64; TEMP 97.4; O2SAT 97
[2024-03-29 03:26] VITALS: BP 108/72; TEMP 96.9; O2SAT 96
[2024-03-29 05:26] LABS: BASO % 0.1 % (0.0-1.0); EOS # 0.3 10^3/uL (0.0-0.5); EOS % 3.3 % (0.0-3.0); HEMATOCRIT 38.6 % (42.0-52.0); LYMPH # 1.2 10^3/uL (1.5-5.0); LYMPH % 13.2 % (24.0-44.0); MEAN CORPUSCULAR HEMOGLOBIN 31.4 pg (27.0-33.0); MEAN CORPUSCULAR HGB CONC 33.7 g/dl (32.0-36.5); MEAN CORPUSCULAR VOLUME 93.2 fl (80.0-96.0); MONO # 0.8 10^3/uL (0.0-0.8); MONO % 8.9 % (2.0-8.0); NEUTROPHILS # 6.5 10^3/uL (1.5-8.5); NEUTROPHILS % 73.6 % (36.0-66.0); PLATELET COUNT, AUTOMATED 324 10^3/uL (150-450); RED BLOOD COUNT 4.14 10^6/uL (4.30-6.10); WHITE BLOOD COUNT 8.9 10^3/uL (4.0-10.0)
[2024-03-29 05:57] LABS: BLOOD UREA NITROGEN 25 MG/DL (9-23); CALCIUM LEVEL 8.9 MG/DL (8.3-10.6); CARBON DIOXIDE LEVEL 32 MMOL/L (20-31); CHLORIDE LEVEL 97 MMOL/L (98-107); GLOMERULAR FILTRATION RATE > 60.0 (>35); GLUCOSE, FASTING 136 MG/DL (74-106); POTASSIUM SERUM 5.7 MMOL/L (3.5-5.1); SODIUM LEVEL 133 MMOL/L (136-145)
[2024-03-29 07:20] VITALS: BP 106/66; TEMP 97.6; O2SAT 97
[2024-03-29 12:00] VITALS: BP 125/61; TEMP 97.3; O2SAT 96
[2024-03-29 12:29] VITALS: BP 108/62; TEMP 97.9; O2SAT 96
[2024-03-29] MEDS: PATIROMER SORBITEX CALCIUM 8.4 GM POWDER PACKET (VELTASSA) PO ONE (13:41)
[2024-03-29 15:11] VITALS: BP 127/66; TEMP 97.7; O2SAT 95
[2024-03-29 19:39] VITALS: BP 115/74; TEMP 98; O2SAT 97
[2024-03-30 03:34] VITALS: BP 103/65; TEMP 97.8; O2SAT 94
[2024-03-30 08:00] VITALS: BP 110/70; TEMP 98.1; O2SAT 96
[2024-03-30 09:23] LABS: BLOOD UREA NITROGEN 28 MG/DL (9-23); CALCIUM LEVEL 8.7 MG/DL (8.3-10.6); CARBON DIOXIDE LEVEL 28 MMOL/L (20-31); CHLORIDE LEVEL 100 MMOL/L (98-107); GLOMERULAR FILTRATION RATE > 60.0 (>35); GLUCOSE, FASTING 145 MG/DL (74-106); POTASSIUM SERUM 5.2 MMOL/L (3.5-5.1); SODIUM LEVEL 133 MMOL/L (136-145)
[2024-03-30] MEDS: FUROSEMIDE 40 MG TAB PO SCH (10:35)
[2024-03-30 12:00] VITALS: BP 116/68; TEMP 97.2; O2SAT 92
[2024-03-30] MEDS: PATIROMER SORBITEX CALCIUM 8.4 GM POWDER PACKET (VELTASSA) PO ONE (13:24)
[2024-03-30 20:22] VITALS: BP_SYST 125; BP_DIAS 69; BP_DIAS 89; TEMP 97.7; O2SAT 97
[2024-03-31 04:20] VITALS: BP 121/75; TEMP 97.5; O2SAT 96
[2024-03-31 06:42] LABS: CALCIUM LEVEL 8.8 MG/DL (8.3-10.6); CREATININE FOR GFR 1.26 MG/DL (0.70-1.30); GLOMERULAR FILTRATION RATE 57.4 (>35); POTASSIUM SERUM 4.7 MMOL/L (3.5-5.1)
[2024-03-31] MEDS: VANICREAM MOISTURIZING SKIN CREAM 113GM TUBE TOP SCH (11:10)
[2024-03-31 12:00] VITALS: BP 110/62; TEMP 97.5; O2SAT 97
[2024-03-31 16:37] VITALS: BP 101/66
[2024-03-31 19:48] VITALS: BP 116/75; TEMP 97.3; O2SAT 95
[2024-04-01 04:27] VITALS: BP 110/71; TEMP 97.5; O2SAT 94
[2024-04-01 06:02] LABS: CALCIUM LEVEL 8.4 MG/DL (8.3-10.6); CREATININE FOR GFR 1.52 MG/DL (0.70-1.30); GLOMERULAR FILTRATION RATE 46.2 (>35); POTASSIUM SERUM 4.6 MMOL/L (3.5-5.1)
[2024-04-01] MEDS ORDERED: FUROSEMIDE 20 MG TAB PO SCH (09:00)
[2024-04-01 12:00] VITALS: BP 109/66; TEMP 97.5; O2SAT 95
[2024-04-01 20:09] VITALS: BP 98/56; TEMP 97.7; O2SAT 96
[2024-04-02 04:00] VITALS: BP 108/62; TEMP 97.5; O2SAT 95
[2024-04-02 06:34] LABS: BLOOD UREA NITROGEN 44 MG/DL (9-23); CALCIUM LEVEL 8.4 MG/DL (8.3-10.6); CARBON DIOXIDE LEVEL 28 MMOL/L (20-31); CHLORIDE LEVEL 102 MMOL/L (98-107); CREATININE FOR GFR 1.18 MG/DL (0.70-1.30); GLOMERULAR FILTRATION RATE > 60.0 (>35); GLUCOSE, FASTING 110 MG/DL (74-106); POTASSIUM SERUM 4.3 MMOL/L (3.5-5.1); SODIUM LEVEL 134 MMOL/L (136-145)
[2024-04-02 10:11] VITALS: BP 106/62
[2024-04-02] MEDS: FINASTERIDE 5MG TAB PO SCH (10:11)
[2024-04-02 12:20] VITALS: BP 102/60
[2024-04-03 04:00] VITALS: BP 100/62; TEMP 97.3; O2SAT 98
[2024-04-03 08:57] VITALS: BP 97/59
[2024-04-03 12:24] VITALS: BP 116/66
[2024-04-04 04:18] VITALS: BP 105/62; TEMP 98.1; O2SAT 96
[2024-04-04 19:50] VITALS: BP 95/57; TEMP 97.7; O2SAT 97
[2024-04-05 04:10] VITALS: BP 95/57; TEMP 97.5; O2SAT 93
[2024-04-05 09:00] VITALS: BP 93/57
[2024-04-05 20:40] VITALS: BP 123/57; TEMP 97.7; O2SAT 95
[2024-04-06 04:21] VITALS: BP 94/57; TEMP 98.1; O2SAT 95
[2024-04-06] MEDS ORDERED: FERR324T21 PO (07:49)
[2024-04-06] MEDS ORDERED: FINA5TAB2 PO (07:49)
[2024-04-06] MEDS ORDERED: MIDO5TA PO (07:49)
[2024-04-06] MEDS ORDERED: MIRA3350 PO (07:49)
== END 2024-04-06 11:41 | DRG 291 ==
LOC: M ED 12:05 → EDBD 12:05 → M ED INP 16:02 → M PCU 17:30 → M MSPAV 03-30 12:01
PROVIDERS: ADMIT Internal Medicine; ATTEND Internal Medicine
PROC: B246ZZZ Ultrasonography of Right and Left Heart (ICD-10-PCS; principal; 2024-03-26)
DX: I11.0 Hypertensive heart disease with heart failure (principal); G93.41 Metabolic encephalopathy; I50.33 Acute on chronic diastolic (congestive) heart failure; E87.1 Hypo-osmolality and hyponatremia; E87.20 Acidosis, unspecified; K86.2 Cyst of pancreas; N17.9 Acute kidney failure, unspecified; L97.929 Non-pressure chronic ulcer of unspecified part of left lower leg with unspecified severity; L97.919 Non-pressure chronic ulcer of unspecified part of right lower leg with unspecified severity; K64.8 Other hemorrhoids; I48.91 Unspecified atrial fibrillation; H40.9 Unspecified glaucoma; N40.1 Benign prostatic hyperplasia with lower urinary tract symptoms; E78.5 Hyperlipidemia, unspecified; N50.89 Other specified disorders of the male genital organs; I95.9 Hypotension, unspecified; R13.10 Dysphagia, unspecified; E87.6 Hypokalemia; L89.152 Pressure ulcer of sacral region, stage 2; R59.0 Localized enlarged lymph nodes; K59.00 Constipation, unspecified; R31.9 Hematuria, unspecified; N13.9 Obstructive and reflux uropathy, unspecified; R33.9 Retention of urine, unspecified; I87.2 Venous insufficiency (chronic) (peripheral); E87.5 Hyperkalemia; I08.1 Rheumatic disorders of both mitral and tricuspid valves; Z79.82 Long term (current) use of aspirin; Z79.899 Other long term (current) drug therapy

== ENCOUNTER → 2024-04-08 | Outpatient (REF) ==
[~2024-04-08] MED LIST changes: +ASPI81TA26 PO; +FERR324T21 PO; +FINA5TAB2 PO; +MIDO5TA PO; +MIRA3350 PO; +TRAZ1TAB11 PO
[2024-04-08 08:56] LABS: HEMATOCRIT 35.4 % (42.0-52.0); HEMOGLOBIN 11.8 g/dl (13.5-17.5); MEAN CORPUSCULAR HGB CONC 33.3 g/dl (32.0-36.5); MEAN CORPUSCULAR VOLUME 95.9 fl (80.0-96.0); PLATELET COUNT, AUTOMATED 380 10^3/uL (150-450); RED BLOOD COUNT 3.69 10^6/uL (4.30-6.10); WHITE BLOOD COUNT 7.4 10^3/uL (4.0-10.0)
[2024-04-08 09:21] LABS: BLOOD UREA NITROGEN 26 MG/DL (9-23); CALCIUM LEVEL 8.4 MG/DL (8.3-10.6); CARBON DIOXIDE LEVEL 28 MMOL/L (20-31); CHLORIDE LEVEL 102 MMOL/L (98-107); GLOMERULAR FILTRATION RATE > 60.0 (>35); GLUCOSE, FASTING 104 MG/DL (74-106); POTASSIUM SERUM 4.3 MMOL/L (3.5-5.1); SODIUM LEVEL 137 MMOL/L (136-145)
== END ==
PROVIDERS: ATTEND Physician Assistant
DX: I50.9 Heart failure, unspecified (principal)

== ENCOUNTER → 2024-04-13 | Outpatient (REF) ==
[2024-04-13 13:20] LABS: HEMATOCRIT 36.5 % (42.0-52.0); HEMOGLOBIN 11.7 g/dl (13.5-17.5); MEAN CORPUSCULAR HEMOGLOBIN 31.5 pg (27.0-33.0); MEAN CORPUSCULAR HGB CONC 32.1 g/dl (32.0-36.5); MEAN CORPUSCULAR VOLUME 98.1 fl (80.0-96.0); PLATELET COUNT, AUTOMATED 457 10^3/uL (150-450); RED BLOOD COUNT 3.72 10^6/uL (4.30-6.10); WHITE BLOOD COUNT 10.7 10^3/uL (4.0-10.0)
[2024-04-13 13:56] LABS: BLOOD UREA NITROGEN 26 MG/DL (9-23); CALCIUM LEVEL 8.6 MG/DL (8.3-10.6); CARBON DIOXIDE LEVEL 31 MMOL/L (20-31); CHLORIDE LEVEL 102 MMOL/L (98-107); GLOMERULAR FILTRATION RATE > 60.0 (>35); GLUCOSE, FASTING 139 MG/DL (74-106); POTASSIUM SERUM 5.1 MMOL/L (3.5-5.1); SODIUM LEVEL 139 MMOL/L (136-145)
== END ==
PROVIDERS: ATTEND Physician Assistant
DX: I50.9 Heart failure, unspecified (principal)

== ENCOUNTER → 2024-05-05 | Outpatient (REF) | payer MEDICARE, OTHER | LOC: M SMT 12:19 | PROVIDERS: ATTEND Physician Assistant | DX: Z85.51 Personal history of malignant neoplasm of bladder (principal) ==

== ENCOUNTER → 2024-05-09 | Outpatient (REF) ==
[2024-05-09 11:18] LABS: HEMOGLOBIN 12.4 g/dl (13.5-17.5); MEAN CORPUSCULAR HEMOGLOBIN 30.7 pg (27.0-33.0); MEAN CORPUSCULAR HGB CONC 31.8 g/dl (32.0-36.5); MEAN CORPUSCULAR VOLUME 96.5 fl (80.0-96.0); PLATELET COUNT, AUTOMATED 343 10^3/uL (150-450); RED BLOOD COUNT 4.04 10^6/uL (4.30-6.10); WHITE BLOOD COUNT 9.8 10^3/uL (4.0-10.0)
[2024-05-09 11:46] LABS: BLOOD UREA NITROGEN 21 MG/DL (9-23); CALCIUM LEVEL 8.6 MG/DL (8.3-10.6); CARBON DIOXIDE LEVEL 28 MMOL/L (20-31); CHLORIDE LEVEL 105 MMOL/L (98-107); CREATININE FOR GFR 0.75 MG/DL (0.70-1.30); GLOMERULAR FILTRATION RATE > 60.0 (>35); GLUCOSE, FASTING 133 MG/DL (74-106); POTASSIUM SERUM 4.6 MMOL/L (3.5-5.1); SODIUM LEVEL 141 MMOL/L (136-145)
== END ==
PROVIDERS: ATTEND Physician Assistant
DX: I50.9 Heart failure, unspecified (principal)

== ENCOUNTER → 2024-05-27 | Outpatient (REF) | payer MEDICARE, OTHER ==
[~2024-05-27] MED LIST changes: +BARIUM SULFATE 700 MG TABLET (E-Z-DISK) As Ordered ONE; +E-Z-PAQUE 96% w/w SUSP 176GM BTL As Ordered ONE; +VARIBAR NECTAR 40% w/v 240ML SUSP BTL As Ordered ONE; +VARIBAR PUDDING 40% w/v 230ML TUBE As Ordered ONE
== END ==
LOC: M RAD 11:01 → EDSTATUS 11:30
PROVIDERS: ATTEND Internal Medicine
DX: J39.2 Other diseases of pharynx (principal)

== ENCOUNTER → 2024-06-06 | Outpatient (REF) ==
[~2024-06-06] MED LIST changes: -BARIUM SULFATE 700 MG TABLET (E-Z-DISK) As Ordered ONE; -E-Z-PAQUE 96% w/w SUSP 176GM BTL As Ordered ONE; -VARIBAR NECTAR 40% w/v 240ML SUSP BTL As Ordered ONE; -VARIBAR PUDDING 40% w/v 230ML TUBE As Ordered ONE
== END ==
PROVIDERS: ATTEND Internal Medicine
DX: I50.9 Heart failure, unspecified (principal); Z53.9 Procedure and treatment not carried out, unspecified reason

== ENCOUNTER → 2024-06-13 | Outpatient (REF) | payer MEDICARE, OTHER | LOC: M LAB REF 17:19 | PROVIDERS: ATTEND Family Medicine | DX: D64.9 Anemia, unspecified (principal) ==

== ENCOUNTER → 2024-06-20 | Outpatient (CLI) | payer MEDICARE, OTHER ==
[~2024-06-20] MED LIST changes: +GASTROGRAFIN SOLUTION 30ML ONE; +ISOVUE-370 76% 100ML VIAL ONE
== END ==
LOC: M PLAIMG 11:03
PROVIDERS: ATTEND Family Medicine
DX: S30.1XXA Contusion of abdominal wall, initial encounter (principal); N13.30 Unspecified hydronephrosis; D73.4 Cyst of spleen; K57.30 Diverticulosis of large intestine without perforation or abscess without bleeding; K86.2 Cyst of pancreas; Z90.49 Acquired absence of other specified parts of digestive tract
CPT/HCPCS: 74177; Q9963; Q9967

== ENCOUNTER 2024-07-20 17:03 | Inpatient (IN) | payer MEDICARE, OTHER ==
[~2024-07-20] VITALS: Ht 170.2 cm; Wt 82.7 kg
[~2024-07-20 17:03] MED LIST changes: -GASTROGRAFIN SOLUTION 30ML ONE; -ISOVUE-370 76% 100ML VIAL ONE
[2024-07-20 18:01] LABS: VENOUS BASE EXCESS -3.9 (-2.0-2.0); VENOUS HCO3 20.2 MMOL/L (23.0-27.0); VENOUS O2 SATURATION 46.3 % (60.0-80.0); VENOUS PARTIAL PRESSURE O2 28.3 mmHg (30.0-50.0); VENOUS PH 7.404 UNITS (7.330-7.430); VENOUS STANDARD HCO3 20.4 MMOL/L; VENOUS TOTAL CO2 21.2 MMOL/L (24.0-28.0)
[2024-07-20 18:07] LABS: HEMATOCRIT 25.5 % (42.0-52.0); HEMOGLOBIN 8.2 g/dl (13.5-17.5); LYMPH # 0.7 10^3/uL (1.5-5.0); LYMPH % 9.1 % (24.0-44.0); MEAN CORPUSCULAR HEMOGLOBIN 28.5 pg (27.0-33.0); MEAN CORPUSCULAR HGB CONC 32.2 g/dl (32.0-36.5); MEAN CORPUSCULAR VOLUME 88.5 fl (80.0-96.0); MONO # 0.7 10^3/uL (0.0-0.8); MONO % 8.3 % (2.0-8.0); NEUTROPHILS # 6.4 10^3/uL (1.5-8.5); NEUTROPHILS % 82.1 % (36.0-66.0); PLATELET COUNT, AUTOMATED 387 10^3/uL (150-450); RED BLOOD COUNT 2.88 10^6/uL (4.30-6.10); WHITE BLOOD COUNT 7.8 10^3/uL (4.0-10.0)
[2024-07-20 18:43] LABS: THYROID STIMULATING HORMONE 5.588 uIU/ML (0.55-4.78)
[2024-07-20 18:45] LABS: ALBUMIN 2.6 G/DL (3.2-5.2); ALKALINE PHOSPHATASE 89 U/L (40-129); ALT/SGPT 30 U/L (7.0-40); AST/SGOT 32 U/L (<34); BILIRUBIN,DIRECT 0.8 MG/DL (<0.4); BILIRUBIN,TOTAL 1.5 MG/DL (0.3-1.2); BLOOD UREA NITROGEN 23 MG/DL (9-23); CALCIUM LEVEL 7.4 MG/DL (8.3-10.6); CARBON DIOXIDE LEVEL 22 MMOL/L (20-31); CHLORIDE LEVEL 79 MMOL/L (98-107); CREATININE FOR GFR 0.71 MG/DL (0.70-1.30); GLOMERULAR FILTRATION RATE > 60.0 (>35); GLUCOSE, FASTING 128 MG/DL (74-106); POTASSIUM SERUM 5.4 MMOL/L (3.5-5.1); SODIUM LEVEL 110 MMOL/L (136-145); TOTAL PROTEIN 6.7 G/DL (5.7-8.2)
[2024-07-20 19:02] LABS: OSMOLALITY SERUM 240 MOSM/KG (280-301)
[2024-07-20 19:15] LABS: KETONE, URINE AUTO RFX TRACE mg/dL (NEGATIVE); MUCUS, URINE RFX MODERATE (NEGATIVE); NITRITE, URINE AUTO RFX NEGATIVE (NEGATIVE); RBC, URINE AUTO RFX TNTC /HPF (0-3); SQUAM EPITHELIAL CELL UR AURFX 0 /HPF (0-6)
[2024-07-20 19:17] LABS: LEUKOCYTE ESTERASE UR AUTO RFX 3+ (NEGATIVE); WBC, URINE AUTO RFX 168 /HPF (0-3)
[2024-07-20 19:21] LABS: INR 2.38; PROTHROMBIN TIME 26.1 SECONDS (12.5-14.5)
[2024-07-20 19:30] LABS: CREATININE,RANDOM URINE 49.6 MG/DL
[2024-07-20] MEDS: SODIUM CHLORIDE 3% 500 ML IV ONE ×2 (19:40→21:27)
[2024-07-20 19:59] LABS: MAGNESIUM LEVEL 1.9 MG/DL (1.8-2.4)
[2024-07-20 20:00] VITALS: BP 110/79; TEMP 98; O2SAT 94
[2024-07-20] MEDS ORDERED: MOM 30ML SUSPENSION UDC PO PRN (20:35)
[2024-07-20] MEDS ORDERED: ACETAMINOPHEN 325 MG TAB PO PRN (20:35)
[2024-07-20] MEDS ORDERED: GLUCOSE 4 GM CHEW PO PRN (20:35)
[2024-07-20] MEDS ORDERED: MAALOX 30 ML SUSP *UDC PO PRN (20:35)
[2024-07-20] MEDS ORDERED: GLUCAGON INJ 1MG VIAL SC PRN (20:35)
[2024-07-20] MEDS ORDERED: DEXTROSE 50% 50ML SYRINGE IV PRN (20:35)
[2024-07-20] MEDS ORDERED: MAG-400T7 PO (20:41)
[2024-07-20] MEDS ORDERED: FERR32TA PO (20:41)
[2024-07-20] MEDS ORDERED: THERTAB52 PO (20:41)
[2024-07-20] MEDS ORDERED: MIDO5TA PO (20:41)
[2024-07-20] MEDS ORDERED: FINA5TAB2 PO (20:41)
[2024-07-20] MEDS ORDERED: HOME MED LIST COMPLETE! XX SCH (20:45)
[2024-07-20] MEDS: DOCUSATE SODIUM 100MG CAPSULE PO SCH (22:18)
[2024-07-20] MEDS: traZODone 50 MG TAB PO SCH (22:19)
[2024-07-20] MEDS: APIXABAN 5 MG TAB (ELIQUIS) PO SCH (22:19)
[2024-07-20] MEDS: SIMVASTATIN 10 MG TAB PO SCH (22:19)
[2024-07-20] MEDS: INSULIN LISPRO (NovoLOG) PER UNIT SC SCH (22:45)
[2024-07-20] MEDS: LATANOPROST 0.005% OPHTH SOLN 2.5 ML OU SCH (22:46)
[2024-07-20 23:15] LABS: BLOOD UREA NITROGEN 22 MG/DL (9-23); CALCIUM LEVEL 7.3 MG/DL (8.3-10.6); CARBON DIOXIDE LEVEL 22 MMOL/L (20-31); CHLORIDE LEVEL 82 MMOL/L (98-107); CREATININE FOR GFR 0.69 MG/DL (0.70-1.30); GLOMERULAR FILTRATION RATE > 60.0 (>35); GLUCOSE, FASTING 109 MG/DL (74-106); POTASSIUM SERUM 5.5 MMOL/L (3.5-5.1); SODIUM LEVEL 113 MMOL/L (136-145)
[2024-07-20] MEDS: cefTRIAXone SOD 1 GM in DEXTROSE 5% (D5W) ADV/MINI-BAG 50 ML IV SCH (23:48)
[2024-07-21] VITALS (21 sets, daily range): BP systolic 89–119; BP diastolic 50–61; TEMP 97–99.5; O2SAT 93–100
[2024-07-21] MEDS: ALBUTEROL SULFATE 2.5MG/0.5ML INH NEB SOLN NEB ONE (00:40)
[2024-07-21] MEDS ORDERED: PATIROMER SORBITEX CALCIUM 8.4 GM POWDER PACKET (VELTASSA) PO ONE (01:00)
[2024-07-21 02:47] LABS: BLOOD UREA NITROGEN 22 MG/DL (9-23); CALCIUM LEVEL 7.5 MG/DL (8.3-10.6); CARBON DIOXIDE LEVEL 22 MMOL/L (20-31); CHLORIDE LEVEL 84 MMOL/L (98-107); CREATININE FOR GFR 0.69 MG/DL (0.70-1.30); GLOMERULAR FILTRATION RATE > 60.0 (>35); GLUCOSE, FASTING 116 MG/DL (74-106); POTASSIUM SERUM 4.8 MMOL/L (3.5-5.1); SODIUM LEVEL 115 MMOL/L (136-145)
[2024-07-21 05:40] LABS: ABG BASE EXCESS -3.1 (-2.0-2.0); ABG HCO3 18.7 MMOL/L (22.0-26.0); ABG O2 SATURATION 95.9 % (95.0-99.0); ABG PARTIAL PRESSURE CO2 22.9 mmHg (35.0-45.0); ABG PARTIAL PRESSURE O2 79.9 mmHg (75.0-100.0); ABG STANDARD HCO3 21.9 MMOL/L. (22.0-26.0); ABG TOTAL CO2 19.4 MMOL/L (23.0-31.0); ABG pH (ARTERIAL) 7.529 UNITS (7.350-7.450)
[2024-07-21 06:33] LABS: HEMATOCRIT 24.1 % (42.0-52.0); HEMOGLOBIN 7.8 g/dl (13.5-17.5); MEAN CORPUSCULAR HEMOGLOBIN 28.3 pg (27.0-33.0); MEAN CORPUSCULAR HGB CONC 32.4 g/dl (32.0-36.5); MEAN CORPUSCULAR VOLUME 87.3 fl (80.0-96.0); PLATELET COUNT, AUTOMATED 346 10^3/uL (150-450); RED BLOOD COUNT 2.76 10^6/uL (4.30-6.10); WHITE BLOOD COUNT 14.9 10^3/uL (4.0-10.0)
[2024-07-21 06:49] LABS: ERYTHROCYTE SEDIMENTATION RATE 14 mm/hr (0-20)
[2024-07-21 06:56] LABS: C REACTIVE PROTEIN QUANTITATIV 2.53 MG/DL (<1.0)
[2024-07-21 07:01] LABS: PROCALCITONIN 0.11 ng/ml
[2024-07-21 07:03] LABS: ALBUMIN 2.4 G/DL (3.2-5.2); ALKALINE PHOSPHATASE 77 U/L (40-129); ALT/SGPT 25 U/L (7.0-40); AST/SGOT 22 U/L (<34); BILIRUBIN,TOTAL 1.4 MG/DL (0.3-1.2); BLOOD UREA NITROGEN 19 MG/DL (9-23); CALCIUM LEVEL 7.6 MG/DL (8.3-10.6); CARBON DIOXIDE LEVEL 23 MMOL/L (20-31); CHLORIDE LEVEL 86 MMOL/L (98-107); CREATININE FOR GFR 0.72 MG/DL (0.70-1.30); GLOMERULAR FILTRATION RATE > 60.0 (>35); GLUCOSE, FASTING 103 MG/DL (74-106); POTASSIUM SERUM 4.6 MMOL/L (3.5-5.1); SODIUM LEVEL 119 MMOL/L (136-145)
[2024-07-21] MEDS: INSULIN LISPRO (NovoLOG) PER UNIT SC SCH (07:25)
[2024-07-21] MEDS ORDERED: MIDODRINE 5 MG TAB PO SCH (08:00)
[2024-07-21] MEDS ORDERED: MIDODRINE 5 MG TAB PO ONE (08:25)
[2024-07-21] MEDS: MIRALAX *UNIT DOSE* 17GM PACKET PO SCH (09:00)
[2024-07-21 10:48] LABS: BLOOD UREA NITROGEN 18 MG/DL (9-23); CALCIUM LEVEL 7.7 MG/DL (8.3-10.6); CARBON DIOXIDE LEVEL 22 MMOL/L (20-31); CHLORIDE LEVEL 88 MMOL/L (98-107); CREATININE FOR GFR 0.68 MG/DL (0.70-1.30); GLOMERULAR FILTRATION RATE > 60.0 (>35); GLUCOSE, FASTING 95 MG/DL (74-106); POTASSIUM SERUM 4.6 MMOL/L (3.5-5.1); SODIUM LEVEL 121 MMOL/L (136-145)
[2024-07-21] MEDS: FERROUS GLUCONATE 324 MG TAB PO SCH (10:53)
[2024-07-21] MEDS: MIDODRINE 5 MG TAB PO SCH (10:53)
[2024-07-21] MEDS: FINASTERIDE 5MG TAB PO SCH (10:54)
[2024-07-21] MEDS: MAGNESIUM OXIDE 400MG TAB (MAG-OX) PO SCH (10:54)
[2024-07-21] MEDS: DESMOPRESSIN 4 MCG/ML INJ VIAL/AMP IV ONE (12:29)
[2024-07-21] MEDS: D5W IV ONE (12:29)
[2024-07-21] MEDS: FUROSEMIDE injection 100 MG, VIAL 2 BAG 13MM ADAPTER 1 EACH in NS 100 ML IV SCH (13:38)
[2024-07-21 15:30] LABS: C REACTIVE PROTEIN QUANTITATIV 4.69 MG/DL (<1.0)
[2024-07-21 15:35] LABS: BLOOD UREA NITROGEN 19 MG/DL (9-23); CALCIUM LEVEL 7.5 MG/DL (8.3-10.6); CARBON DIOXIDE LEVEL 23 MMOL/L (20-31); CHLORIDE LEVEL 88 MMOL/L (98-107); CREATININE FOR GFR 0.67 MG/DL (0.70-1.30); GLOMERULAR FILTRATION RATE > 60.0 (>35); GLUCOSE, FASTING 152 MG/DL (74-106); POTASSIUM SERUM 4.5 MMOL/L (3.5-5.1); SODIUM LEVEL 118 MMOL/L (136-145)
[2024-07-21 15:49] LABS: PROCALCITONIN 0.14 ng/ml
[2024-07-21 19:27] LABS: BLOOD UREA NITROGEN 19 MG/DL (9-23); CALCIUM LEVEL 7.4 MG/DL (8.3-10.6); CARBON DIOXIDE LEVEL 17 MMOL/L (20-31); CHLORIDE LEVEL 88 MMOL/L (98-107); CREATININE FOR GFR 0.67 MG/DL (0.70-1.30); GLOMERULAR FILTRATION RATE > 60.0 (>35); GLUCOSE, FASTING 144 MG/DL (74-106); POTASSIUM SERUM 5.1 MMOL/L (3.5-5.1); SODIUM LEVEL 118 MMOL/L (136-145)
[2024-07-22] VITALS (13 sets, daily range): BP systolic 84–103; BP diastolic 50–80; TEMP 97–98.8; O2SAT 93–99
[2024-07-22 09:20] LABS: BLOOD UREA NITROGEN 18 MG/DL (9-23); CALCIUM LEVEL 7.2 MG/DL (8.3-10.6); CARBON DIOXIDE LEVEL 26 MMOL/L (20-31); CHLORIDE LEVEL 87 MMOL/L (98-107); CREATININE FOR GFR 0.73 MG/DL (0.70-1.30); GLOMERULAR FILTRATION RATE > 60.0 (>35); GLUCOSE, FASTING 111 MG/DL (74-106); POTASSIUM SERUM 3.5 MMOL/L (3.5-5.1); SODIUM LEVEL 120 MMOL/L (136-145)
[2024-07-22] MEDS ORDERED: VARIBAR PUDDING 40% w/v 230ML TUBE As Ordered ONE (10:56)
[2024-07-22] MEDS ORDERED: E-Z-PAQUE 96% w/w SUSP 176GM BTL As Ordered ONE (10:57)
[2024-07-22] MEDS ORDERED: VARIBAR NECTAR 40% w/v 240ML SUSP BTL As Ordered ONE (10:57)
[2024-07-22] MEDS ORDERED: BARIUM SULFATE 700 MG TABLET (E-Z-DISK) As Ordered ONE (10:57)
[2024-07-23] MEDS ORDERED: ONDANSETRON 4MG 2ML VIAL IV PRN (09:50)
[2024-07-23] MEDS ORDERED: ACETAMINOPHEN 650MG SUPP PR PRN (09:50)
[2024-07-23] MEDS ORDERED: ONDANSETRON 4MG ORAL DISINTEGRATING TAB PO PRN (09:50)
[2024-07-23] MEDS ORDERED: FLEET ENEMA PR PRN (09:50)
[2024-07-23] MEDS ORDERED: ACETAMINOPHEN 325 MG TAB PO PRN (09:50)
[2024-07-23] MEDS ORDERED: BISACODYL 10MG SUPP PR PRN (09:50)
[2024-07-23] MEDS: SCOPOLAMINE 1MG TRANSDERMAL PATCH TOP PRN (10:15)
[2024-07-23] MEDS: LORazepam 1 MG TAB PO PRN (19:07)
[2024-07-23] MEDS: MORPHINE 10MG/0.5ML ORAL CONCENTRATE SOLUTION U/D SL PRN (19:09)
[2024-07-24] MEDS: ATROPINE SULFATE 1% OPHTH SOLN 2ML BTL SL PRN (18:54)
[2024-07-25] MEDS: MORPHINE 10MG/0.5ML ORAL CONCENTRATE SOLUTION U/D SL PRN (07:59)
[2024-07-26] MEDS: HYOSCYAMINE SULFATE 0.125 MG SUBL TABLET PO PRN (14:43)
[2024-07-27] MEDS ORDERED: TRAN1DIS4 TOP (10:23)
[2024-07-27] MEDS ORDERED: HYOS125TA PO (10:23)
[2024-07-27] MEDS ORDERED: MORP1SOL5 PO (10:23)
[2024-07-27] MEDS ORDERED: ATIV1TAB10 PO (10:23)
== END 2024-07-27 11:30 | DRG 640 ==
LOC: M ED 17:03 → EDBD 17:03 → EEVIPCON 20:35 → M ED INP 20:35 → M PCU 22:04 → M MSPAV 07-22 21:35
PROVIDERS: ADMIT Student in an Organized Health Care Education/Training Program; ATTEND General Practice
PROC: B246ZZZ Ultrasonography of Right and Left Heart (ICD-10-PCS; principal; 2024-07-21)
DX: E87.1 Hypo-osmolality and hyponatremia (principal); G93.41 Metabolic encephalopathy; I50.33 Acute on chronic diastolic (congestive) heart failure; N39.0 Urinary tract infection, site not specified; J98.11 Atelectasis; N13.8 Other obstructive and reflux uropathy; I48.91 Unspecified atrial fibrillation; I11.0 Hypertensive heart disease with heart failure; E78.5 Hyperlipidemia, unspecified; E11.9 Type 2 diabetes mellitus without complications; N40.1 Benign prostatic hyperplasia with lower urinary tract symptoms; I34.0 Nonrheumatic mitral (valve) insufficiency; K64.9 Unspecified hemorrhoids; E87.5 Hyperkalemia; I27.20 Pulmonary hypertension, unspecified; R13.10 Dysphagia, unspecified; D64.9 Anemia, unspecified; Z51.5 Encounter for palliative care; Z66 Do not resuscitate; Z98.41 Cataract extraction status, right eye; Z98.42 Cataract extraction status, left eye; Z96.1 Presence of intraocular lens; Z79.01 Long term (current) use of anticoagulants; Z79.899 Other long term (current) drug therapy; Z85.51 Personal history of malignant neoplasm of bladder